=== PATIENT | male | born 1950 | race Caucasian/White ===

== ENCOUNTER 2016-06-16 00:14 | Emergency (ER) | payer MEDICARE, OTHER, MEDICAID ==
[~2016-06-16] VITALS: Ht 172.7 cm; Wt 113.6 kg
[~2016-06-16 00:14] MED LIST: ACET-171 PO; ATOR80TA77 PO; CARV12.52 PO; CHOL200047 PO; CITA40TA13 PO; FUR20 PO; INSU100I SUBQ; INSU100V7 SUBQ; LEVO200T6 PO; MOXI400T32 PO; ONDA4TAB9 PO; OXYC5CAP4 PO; PANT40TA2 PO; PANT40TA3 PO; PROC-4 PO; SEVE800T7 PO
[2016-06-16 00:19] VITALS: BP 100/66; PULSE 74; RESP 16; O2SAT 99
--- NOTE | 2016-06-16 00:33 | ED.REPORT ---
HPI-General Illness Date of Service Jun 16, 2016 ED Provider: Dr. Loaiza Nursing Notes Stated Complaint: BLOOD IN STOOL L FOOT PAIN Chief Complaint: General Complaint Nursing Notes Reviewed: Yes Allergies: Coded Allergies: No Known Allergies (Verified Allergy, Unknown, 06/16/16) Scheduled Atorvastatin Calcium (Atorvastatin Calcium) 80 Mg Tablet 80 MG PO HS Carvedilol (Carvedilol) 12.5 Mg Tablet 12.5 MG PO BID tAKE ON FRIDAY, FRIDAY, FRIDAY AND FRIDAY ONLY HOLD ON FRIDAY AND FRIDAY AND FRIDAY Cholecalciferol (Vitamin D3) (Vitamin D3) 2,000 Unit Capsule 2,000 UNIT PO AM Citalopram (Citalopram) 40 Mg Tablet 40 MG PO AM Furosemide (Furosemide) 20 Mg Tab 80 MG PO SuMoWeFr Hold on dialysis days Insulin Aspart (NovoLOG U-100 Pen) 100 Unit/Ml Insuln.pen 5 UNIT SUBQ TID- INSULIN Hold for blood glucose less than 150. Insulin Glargine (Lantus U100 Insulin Vial) 100 Unit/Ml Vial 20 UNIT SUBQ HS Levothyroxine (Levothyroxine) 200 Mcg Tablet 200 MCG PO AM Moxifloxacin (Moxifloxacin) 400 Mg Tablet 400 MG PO DAILY Pantoprazole DR (Pantoprazole DR) 40 Mg Tablet 40 MG PO BID Pantoprazole DR (Protonix) 40 Mg Tablet 40 MG PO BID Sevelamer Carbonate (Renvela) 800 Mg Tablet 800 MG PO NOON Scheduled PRN Acetaminophen (Acetaminophen) 500 Mg Tablet 1,000 MG PO Q6H PRN PRN For Pain Ondansetron ODT (Zofran ODT) 4 Mg Tablet 4 MG PO Q4H PRN PRN For Nausea Prochlorperazine Maleate (Compazine) 10 Mg Tablet 10 MG PO TIDAC PRN PRN For Nausea oxyCODONE (oxyCODONE) 5 Mg Capsule 5 MG PO Q6-8H PRN PRN For Pain TAKE WITH BREAKFAST AND DINNER General Time Seen by MD: 00:32 Past Medical History Past Medical History Notes: Admit for GI bleed July 2015 (sternal history of GI bleed in February 2015- from therapy stopped at that time) ED visit for headache 07/27/15 11 Head CTs since 2013 Past Medical History Chronic renal failure, on dialysis (T/R/S). Minimal urine output. [facility] h/o DVT and PE no longer on chronic Coumadin therapy following GI Bleed Sleep apnea on BiPAP. Diastolic dysfunction congestive heart failure Diabetes mellitus Hypertension Hyperlipidemia Depression Gout CVA Restless legs Peripheral neuropathy Headaches Hypothyroid Past Surgical History Partial colectomy, colostomy and subsequent takedown. Dialysis access catheter Colonoscopy December 2014 with polypectomy EGD July 2015 reveals ulcers in the esophagus and proximal duodenum with no active bleeding Family History Reviewed, not relevant. Smoking History Never Smoker Social History Alcohol Use: Denies alcohol use Drug Use: Denies drug use Other Social History: Good social support, , Local resident Ambulatory Status Wheelchair Review of Systems Complete sys rev & neg: except as marked. Physical Exam Vital Signs Vital Signs Date Time Temp Pulse Resp B/P Pulse Ox O2 Delivery O2 Flow Rate FiO2 06/16/16 00:19 36.3 74 16 100/66 99 Room Air Interpretation & Diagnostics Lab Results Interpretation Result Diagram: 06/16/16 0142 06/16/16 0142 Test 06/16/16 01:42 White Blood Count 8.6th/mm3 (3.8-10.1) Red Blood Count 3.38mil/mm3 (4.40-5.80) Hemoglobin 10.9g/dL (13.8-17.2) Hematocrit 33.0% (41.0-50.0) Mean Corpuscular Volume 97.6fL (81-100) Mean Corpuscular Hemoglobin 32.2pg (27.0-35.0) Mean Corpuscular Hemoglobin Concent 33.0% (32.0-37.0) Red Cell Distribution Width 15.0% (12.3-15.4) Platelet Count 178bil/L (150-400) Neutrophils (%) (Auto) 67.1% (40-74) Lymphocytes (%) (Auto) 17.7% (14-46) Monocytes (%) (Auto) 11.9% (4-12) Eosinophils (%) (Auto) 0.6% (0-5) Basophils (%) (Auto) 0.6% (0-3) Prothrombin Time 10.4sec (8.1-12.5) Prothromb Time International Ratio 0.97ratio Sodium Level 138mEq/L (134-144) Potassium Level 4.1mEq/L (3.5-5.2) Chloride Level 92mEq/L (97-108) Carbon Dioxide Level 26mmol/L (18-29) Blood Urea Nitrogen 43mg/dL (8-27) Creatinine 4.49mg/dL (0.76-1.27) Estimat Glomerular Filtration Rate 14mL/min (>59) Glucose Level 221mg/dL (60-99) Calcium Level 9.8mg/dL (8.5-10.1) Total Bilirubin 0.6mg/dL (0.0-1.2) Aspartate Amino Transf (AST/SGOT) 17U/L (0-50) Alanine Aminotransferase (ALT/SGPT) 16U/L (0-44) Alkaline Phosphatase 144U/L (25-160) Total Protein 7.3g/dL (6.4-8.4) Albumin 4.1g/dL (3.4-5.0) Hold [place] Top Tube Received (Received) Discharge & Departure Disposition: AGAINST MEDICAL ADVICE Referrals: [facility] (PCP) [facility] Mazin Hartmann DO Jun 16, 2016 00:33 SINAN HALL Jun 16, 2016 01:17
[2016-06-16 01:52] LABS: BASOPHILS % (AUTO) 0.6 % (0-3); EOSINOPHILS % (AUTO) 0.6 % (0-5); MONOCYTES % (AUTO) 11.9 % (4-12); Mean Corpuscular Hemoglobin 32.2 pg (27.0-35.0); Mean Corpuscular Volume 97.6 fL (81-100); NEUTROPHILS % (AUTO) 67.1 % (40-74); Platelet Count 178 bil/L (150-400)
[2016-06-16 02:14] LABS: INR 0.97 ratio
== END 2016-06-16 01:42 | disposition left against medical advice (07) ==
LOC: EDUNIT# 00:14 → SED 00:14 → EDBD 00:14 → SED 01:42
DX: K92.1 Melena (principal); Z53.29 Procedure and treatment not carried out because of patient's decision for other reasons

== ENCOUNTER 2016-06-21 01:26 | Emergency (ER) | payer MEDICARE, OTHER, MEDICAID ==
[2016-06-21 01:35] VITALS: BP 122/79; PULSE 65; RESP 22; O2SAT 98
[2016-06-21 02:34] LABS: BASOPHILS % (AUTO) 0.2 % (0-3); EOSINOPHILS % (AUTO) 1.4 % (0-5); Mean Corpuscular Hemoglobin 31.9 pg (27.0-35.0); Mean Corpuscular Volume 97.5 fL (81-100); NEUTROPHILS % (AUTO) 70.6 % (40-74); Platelet Count 217 bil/L (150-400)
--- NOTE | 2016-06-21 03:03 | ED.REPORT ---
HPI-General Illness Date of Service Jun 21, 2016 ED Provider: Mazin Loaiza DO This patient is a 65 year old male with a history of chronic renal failure on dialysis, diabetes, DVT, PE, CHF, hypertension, and GI bleed brought in by EMS with a cough. He also complains of chills, SOB, vomiting, and black, tarry stools. The pt states that SOB started today. He was in the ED recently for a possible GI bleed but did not follow up with his PCP as recommended. Nursing Notes Stated Complaint: COUGH, POSSIBLE GI BLEED Chief Complaint: General Complaint Nursing Notes Reviewed: Yes Allergies: Coded Allergies: No Known Allergies (Verified Allergy, Unknown, 06/21/16) Scheduled Atorvastatin Calcium (Atorvastatin Calcium) 80 Mg Tablet 80 MG PO HS Carvedilol (Carvedilol) 12.5 Mg Tablet 12.5 MG PO BID tAKE ON FRIDAY, FRIDAY, FRIDAY AND FRIDAY ONLY HOLD ON FRIDAY AND FRIDAY AND FRIDAY Cholecalciferol (Vitamin D3) (Vitamin D3) 2,000 Unit Capsule 2,000 UNIT PO AM Citalopram (Citalopram) 40 Mg Tablet 40 MG PO AM Furosemide (Furosemide) 20 Mg Tab 80 MG PO SuMoWeFr Hold on dialysis days Insulin Aspart (NovoLOG U-100 Pen) 100 Unit/Ml Insuln.pen 5 UNIT SUBQ TID- INSULIN Hold for blood glucose less than 150. Insulin Glargine (Lantus U100 Insulin Vial) 100 Unit/Ml Vial 20 UNIT SUBQ HS Levothyroxine (Levothyroxine) 200 Mcg Tablet 200 MCG PO AM Moxifloxacin (Moxifloxacin) 400 Mg Tablet 400 MG PO DAILY Pantoprazole DR (Pantoprazole DR) 40 Mg Tablet 40 MG PO BID Pantoprazole DR (Protonix) 40 Mg Tablet 40 MG PO BID Sevelamer Carbonate (Renvela) 800 Mg Tablet 800 MG PO NOON Scheduled PRN Acetaminophen (Acetaminophen) 500 Mg Tablet 1,000 MG PO Q6H PRN PRN For Pain Ondansetron ODT (Zofran ODT) 4 Mg Tablet 4 MG PO Q4H PRN PRN For Nausea Prochlorperazine Maleate (Compazine) 10 Mg Tablet 10 MG PO TIDAC PRN PRN For Nausea oxyCODONE (oxyCODONE) 5 Mg Capsule 5 MG PO Q6-8H PRN PRN For Pain TAKE WITH BREAKFAST AND DINNER General Time Seen by MD: 01:40 Chief Complaint Cough Hx Obtained From: Patient, EMS Arrived By: Ambulance Sudden in Onset?: No Onset Occurred: 1 day ago Symptom Duration: Since onset Recent Healthcare: Recent doctor visit, Recent hospitalization Similar Sx Previous: Yes Past Medical History Past Medical History Notes: Admit for GI bleed July 2015 (sternal history of GI bleed in February 2015- from therapy stopped at that time) ED visit for headache 07/27/15 11 Head CTs since 2013 Past Medical History Chronic renal failure, on dialysis (T/R/S). Minimal urine output. [facility] h/o DVT and PE no longer on chronic Coumadin therapy following GI Bleed Sleep apnea on BiPAP. Diastolic dysfunction congestive heart failure Diabetes mellitus Hypertension Hyperlipidemia Depression Gout CVA Restless legs Peripheral neuropathy Headaches Hypothyroid Past Surgical History Partial colectomy, colostomy and subsequent takedown. Dialysis access catheter Colonoscopy December 2014 with polypectomy EGD July 2015 reveals ulcers in the esophagus and proximal duodenum with no active bleeding Family History Reviewed, not relevant. Smoking History Never Smoker Social History Alcohol Use: Denies alcohol use Drug Use: Denies drug use Other Social History: Good social support, , Local resident Ambulatory Status Wheelchair Review of Systems Full Review of Systems Constitutional: Reports: Chills Respiratory: Reports: Non-productive cough, Shortness of breath Cardiovascular: Denies: Chest pain GI: Reports: Bloody/tarry stool, Vomiting Musculoskeletal: Denies: Back pain, Neck pain Skin: Denies Rash Complete sys rev & neg: except as marked. Physical Exam Vital Signs Vital Signs Date Time Temp Pulse Resp B/P Pulse Ox O2 Delivery O2 Flow Rate FiO2 06/21/16 01:35 36.2 65 22 122/79 98 Room Air Initial VS: Reviewed General/Constitutional: Well-developed, Well-nourished Head / Eyes: Atraumatic, Normocephalic, PERRL ENT: Mucous membranes moist, Conjunctiva normal, No scleral icterus Neck: Supple, Non-tender, Full range of motion Cardiovascular: Regular rate & rhythm, Heart sounds normal, Intact distal pulses Abdomen / GI: Soft, Non-tender, No guarding, No rebound, No distention Extremities: Vascular intact, Neuro intact Skin: Warm, Dry, No cyanosis Neurologic: Alert, Oriented, Nonfocal Psychiatric: Mood/affect normal, Behavior normal, Normal thought content General/Constitutional: Awake, Alert Respiratory / Chest: Atraumatic, Breath sounds NL Coarse rhonchi in bilateral lung hernandez Bilateral wheeze Interpretation & Diagnostics Lab Results Interpretation Result Diagram: 06/21/16 0159 Test 06/21/16 01:59 06/21/16 03:00 White Blood Count 9.2th/mm3 (3.8-10.1) Red Blood Count 3.23mil/mm3 (4.40-5.80) Hemoglobin 10.3g/dL (13.8-17.2) Hematocrit 31.5% (41.0-50.0) Mean Corpuscular Volume 97.5fL (81-100) Mean Corpuscular Hemoglobin 31.9pg (27.0-35.0) Mean Corpuscular Hemoglobin Concent 32.7% (32.0-37.0) Red Cell Distribution Width 15.3% (12.3-15.4) Platelet Count 217bil/L (150-400) Neutrophils (%) (Auto) 70.6% (40-74) Lymphocytes (%) (Auto) 14.2% (14-46) Monocytes (%) (Auto) 12.0% (4-12) Eosinophils (%) (Auto) 1.4% (0-5) Basophils (%) (Auto) 0.2% (0-3) Prothrombin Time 10.6sec (8.1-12.5) Prothromb Time International Ratio 0.99ratio Lactic Acid Level 2.6mmol/L (0.4-2.0) Pro-B-Type Natriuretic Peptide 1846pg/mL (0-210) Pulse Oximetry Interpretation Pulse Oximetry Interpretation: 98% on room air Pulse Oximetry: Pulse Ox normal ECG Interpretation ECG Interpretation: normal sinus rhythm with a rate of 64 RBBB Interpreted by: ED physician X-Ray Chest Interpretation Chest Xray Interpretation: no acute findings Interpretation / Wet Read by: Wet read ED physician Re-Eval/Medical Decision Med Decision/Clinical Course 65-year-old end-stage renal disease patient presents with cough, shortness of breath and posttussive emesis. Evidently he had black tarry stools or couple days ago. He came to the MRSA department but did not stick around to be seen. Today he started to cough. He has had some vomiting however has not brought up any blood. His stool is no longer black. He does feel moderately short of breath. He does not have any, this is. He does have a fever subjectively. On examination vital signs initially mild tachypnea. He is not hypoxic. He has coarse rhonchi and wheezes in both lung hernandez. No JVD. Belly is soft and nontender. Limbs without edema. Neurologic no focal deficits. He has a strong AV fistula in the right arm. When IV access was obtained. Mr. Harrell has been ordered double DuoNeb nebs. Portable chest x-ray looks normal to me. KG does not show any evidence of ischemia. Laboratory work is pending at this time. Care endorsed to Dr. Gimenez at the end of my shift. Source of Hx: Old records, EMS Counseled Regarding: Diagnosis, Lab results Discharge & Departure Shift Change Sign-Out Patient Care Transferred: Yes Discussed Complaint(s): Yes Laboratory Evaluation: Ordered, not yet done Imaging Studies: Imaging discussed Response to Therapy: Improved Primary Impression: Bronchospasm Additional Impression: Vomiting Vomiting type: unspecified Vomiting Intractability: non-intractable Nausea presence: with nausea Qualified Code: R11.2 - Nausea with vomiting, unspecified Discharge Condition All VS Reviewed: Yes Condition: Stable Referrals: [facility] (PCP) Care Transferred to: Dr. Gimenez Care Transferred at: 03:00 Scribe Attestation Portions of this note were transcribed by Audrey Schumacher I, Dr. Loaiza personally performed the history, physical exam and medical decision-making ; I reviewed and confirmed the accuracy of the information in the transcribed note. Signed by: Priscilla Ho, 06/21/2016 and 0322. copies to: [facility] Mazin Loaiza DO Jun 21, 2016 03:03 Anna Tan [Audrey] Jun 21, 2016 03:10 ANGELINE SCHUMACHER Jun 21, 2016 03:23
[2016-06-21] MEDS ORDERED: Albuterol-Ipratropium 3 mL Inhalation Solution NEB ONE ×2 (03:10→03:20)
[2016-06-21] MEDS ORDERED: Ondansetron 2 mg/mL 2 mL Inj IVPUSH PRN (03:10)
[2016-06-21] MEDS ORDERED: MethylprednisoLONE Sodium Succinate 62.5 mg/mL 2 mL Inj IVPUSH ONE (03:20)
[2016-06-21 03:36] LABS: INR 0.99 ratio
[2016-06-21 03:49] LABS: TROPONIN T 0.04 ug/L (0.0-0.011)
[2016-06-21 04:28] VITALS: BP 146/72; PULSE 65; RESP 15; O2SAT 96
[2016-06-21 06:28] VITALS: BP 142/76; PULSE 62; RESP 17; O2SAT 98
[2016-06-21 07:43] VITALS: BP 125/67; PULSE 65; RESP 12; O2SAT 97
[2016-06-21 07:44] VITALS: BP 125/67; PULSE 65; RESP 12; O2SAT 97
--- NOTE | 2016-06-21 08:41 | DRSVH ---
PROCEDURE: CT ANGIO CHEST PULMONARY EMBOLISM ([id number]) INDICATIONS: sob, cp, elevated d dimer TECHNIQUE: After the administration of intravenous contrast, 2 mm thick sections acquired from the pulmonary api payton to the posterior costophrenic angles. 3-dimensional maximum intensity projection (MIP) coronal a nd sagittal reformats were then acquired through the thorax. For radiation dose reduction, the follo wing was used: automated exposure control, adjustment of mA and/or kV according to patient size. COMPARISON: [facility], CT, CHEST ANGIO-PE, 03/21/2014, 14:37. FINDINGS: Image quality: Excellent. Pulmonary arteries: Pulmonary arteries are normal in size, and demonstrate no intraluminal filling d efects to suggest central pulmonary embolism. Lungs and pleura: Lungs are clear. No pleural effusions or pneumothorax. Central and peripheral ai rways are patent. Mediastinum: Heart size is normal, without pericardial effusion. No mediastinal or hilar adenopathy . Thoracic aorta is normal in caliber and enhancement. Esophagus is normal in caliber. There is a s mall hiatal hernia. The distal esophagus is fluid-filled. Bones and chest wall: No suspicious bony lesions. Ribs and thoracic spine appear intact throughout. Thyroid gland is unremarkable. No axillary or supraclavicular adenopathy. Abdomen: Visualized upper abdominal solid organs appear normal in the early arterial phase of enhanc ement. IMPRESSION: 1. No acute pulmonary embolus. 2. Small hiatal hernia and fluid-filled esophagus. Note: The preliminary [facility] interpretation and the final report are concordant. Dictated by: Sona Villanueva M.D. on 06/21/2016 at 8:39 Approved by: Sona Villanueva M.D. on 06/21/2016 at 8:39
--- NOTE | 2016-06-21 08:42 | DRSVH ---
PROCEDURE: X-RAY CHEST ONE VIEW, PORTABLE ([id number]) INDICATIONS: COUGH TECHNIQUE: One view of the chest was acquired. COMPARISON: [facility], CR, XR CHEST 1VW (PORTABLE), 06/05/2016, 1:17. FINDINGS: Surgical changes and devices: None. Lungs and pleura: No pleural effusions or pneumothorax. There is hyperinflation of the lungs with f lattening of the hemidiaphragms suggestive of COPD. Lungs are clear. Mediastinum: Mediastinal contours appear normal. Heart size is normal. Bones and chest wall: No suspicious bony lesions. Overlying soft tissues appear unremarkable. IMPRESSION: 1. No evidence of pneumonia. 2. Findings suggestive of COPD redemonstrated. Dictated by: Marcelino Vance M.D. on 06/21/2016 at 8:40 Approved by: Marcelino Vance M.D. on 06/21/2016 at 8:40
[2016-06-22] MEDS ORDERED: MELA1TAB9 PO (02:16)
[2016-06-22] MEDS ORDERED: CHOL10008 PO (02:18)
[2016-06-22] MEDS ORDERED: Pantoprazole 4 mg/mL 10 mL Inj IVPUSH SCH (04:20)
== END 2016-06-21 07:30 | disposition home or self-care (01) ==
LOC: EDUNIT# 01:26 → SED 01:26 → EDBD 01:26 → SED 07:30
DX: J98.01 Acute bronchospasm (principal); R11.2 Nausea with vomiting, unspecified; I12.0 Hypertensive chronic kidney disease with stage 5 chronic kidney disease or end stage renal disease; N18.9 Chronic kidney disease, unspecified; E11.22 Type 2 diabetes mellitus with diabetic chronic kidney disease; I50.9 Heart failure, unspecified; Z86.718 Personal history of other venous thrombosis and embolism; Z86.73 Personal history of transient ischemic attack (TIA), and cerebral infarction without residual deficits; Z86.39 Personal history of other endocrine, nutritional and metabolic disease; Z99.2 Dependence on renal dialysis; Z87.39 Personal history of other diseases of the musculoskeletal system and connective tissue; Z86.79 Personal history of other diseases of the circulatory system; Z79.4 Long term (current) use of insulin
CPT/HCPCS: 36415; 71010; 71275; 80053; 83605; 83880; 84484; 85025; 85379; 85610; 87040; 87070; 87205; 87804; 93005; 94799; 96374; 96375; 99285; J2405; J2930; J7620; Q9967

== ENCOUNTER 2016-06-21 15:41 | Emergency (ER) | payer MEDICARE, OTHER, MEDICAID ==
[~2016-06-21] VITALS: Ht 172.7 cm; Wt 113.6 kg
[2016-06-21 15:52] VITALS: BP 111/69; PULSE 75; RESP 16; O2SAT 95
[2016-06-22] MEDS ORDERED: MELA1TAB9 PO (02:16)
[2016-06-22] MEDS ORDERED: CHOL10008 PO (02:18)
== END 2016-06-21 17:50 | disposition left against medical advice (07) ==
LOC: SED 15:41
DX: K92.0 Hematemesis (principal); R42 Dizziness and giddiness; Z53.21 Procedure and treatment not carried out due to patient leaving prior to being seen by health care provider

== ENCOUNTER 2016-06-22 00:45 | Inpatient (IN) | payer MEDICARE, OTHER, MEDICAID ==
[~2016-06-22] VITALS: Ht 175.3 cm; Wt 112.8 kg
[2016-06-22] VITALS (8 sets, daily range): BP systolic 102–129; BP diastolic 53–72; PULSE 68–78; RESP 16–22; O2SAT 95–98
[2016-06-22] MEDS ORDERED: MELA1TAB9 PO (02:16)
[2016-06-22] MEDS ORDERED: CHOL10008 PO (02:18)
[2016-06-22] MEDS ORDERED: Alum-Mag Hydrox-Simeth 30 mL Suspension PO PRN (03:35)
[2016-06-22] MEDS ORDERED: Polyethylene Glycol (PEG) 17 Gm Powder PO PRN (03:35)
[2016-06-22] MEDS ORDERED: Ondansetron 2 mg/mL 2 mL Inj IVPUSH PRN (03:35)
[2016-06-22] MEDS: 0.9% Sodium Chloride 1,000 ML IV SCH ×3 (04:04→23:32)
[2016-06-22] MEDS: 0.9% Sodium Chloride 1,000 ML IV ONE ×2 (04:25→04:50)
[2016-06-22] MEDS ORDERED: SODIUM CHLORIDE 0.9% IV ONE (04:40)
[2016-06-22] MEDS ORDERED: POTASSIUM CHLORIDE IV ONE (04:40)
[2016-06-22] MEDS ORDERED: Glucose 40% Oral Gel 15 Gm Tube PO PRN (04:40)
[2016-06-22] MEDS ORDERED: Insulin GLARgine 100 Unit/mL Syringe SUBQ ONE (04:40)
--- NOTE | 2016-06-22 04:40 | PCM.HPMED ---
Subjective Date of Service Jun 22, 2016 Primary Provider: Admitting Physician: Margaret Cavazos MD [facility]ending Phys[facility]: Margaret Cavazos MD Chief Complaint: GI bleed History of Present Illness: 65-year-old male past medical history of DVT/PE no longer on anticoagulation due to GI bleeding 2014, diabetes type II, CHF, end-stage renal disease on hemodialysis, hypertension, and history of strokes 4, presenting today ED at [facility] with nausea and vomiting 2 days coffee-ground stool, hematemesis, that started at the same time the nausea and vomiting. Patient was brought to the emergency department here at [facility] yesterday due to cough and shortness of breath with vomiting of black tarry stools. The shortness of breath that started yesterday and he underwent evaluation for PE which was ruled out and the patient was sent home. Patient denies fever, abdominal or chest pain, diarrhea, but does endorse chills and lightheadedness. Patient has also been unable to eat or drink due to severe nausea. Patient had GI bleed in 2014, at which time his anticoagulation for his PE/DVT was discontinued. He was admitted to the hospital. S/P H in early 2015. At that time the patient had gastritis diagnosed by EGD. Patient is a poor historian and history is taken from the records from [facility], and from the ER records yesterday. At [facility] basics labs showed a hypokalemia of 3.3, hypochloremia of 91, increased anion gap 19, glucose 317, BUN/creatinine 58, creatinine of 6.79, EGF R8. Patient also had a mild elevation of his AST with a normal ALP and a normal alkaline phosphatase. Patient did have a white count of 14.5 hemoglobin of 9.9 which was down from 10.3 yesterday morning when he visited [facility]. Hematocrit is 29.3. There is a left shift on the CBC with neutrophils of 84.6 and lymphocytes of 6% Review of Systems: Complete review of systems performed, pertinent positives and negatives per history of present illness. All others systems were reviewed and found to be negative Allergies Coded Allergies: No Known Allergies (Verified Allergy, Unknown, 06/21/16) Home Medications Atorvastatin Calcium (Atorvastatin Calcium) 80 Mg Tablet 80 MG PO HS Carvedilol (Carvedilol) 12.5 Mg Tablet 12.5 MG PO BID tAKE ON FRIDAY, FRIDAY, FRIDAY AND FRIDAY ONLY HOLD ON FRIDAY AND FRIDAY AND FRIDAY Cholecalciferol (Vitamin D3) (Vitamin D3) 2,000 Unit Capsule 2,000 UNIT PO AM Citalopram (Citalopram) 40 Mg Tablet 40 MG PO AM Furosemide (Furosemide) 20 Mg Tab 80 MG PO SuMoWeFr Hold on dialysis days Insulin Aspart (NovoLOG U-100 Pen) 100 Unit/Ml Insuln.pen 5 UNIT SUBQ TID- INSULIN Hold for blood glucose less than 150. Insulin Glargine (Lantus U100 Insulin Vial) 100 Unit/Ml Vial 20 UNIT SUBQ HS Levothyroxine (Levothyroxine) 200 Mcg Tablet 200 MCG PO AM Moxifloxacin (Moxifloxacin) 400 Mg Tablet 400 MG PO DAILY Pantoprazole DR (Pantoprazole DR) 40 Mg Tablet 40 MG PO BID Pantoprazole DR (Protonix) 40 Mg Tablet 40 MG PO BID Sevelamer Carbonate (Renvela) 800 Mg Tablet 800 MG PO NOON Acetaminophen (Acetaminophen) 500 Mg Tablet 1,000 MG PO Q6H PRN PRN For Pain Ondansetron ODT (Zofran ODT) 4 Mg Tablet 4 MG PO Q4H PRN PRN For Nausea Prochlorperazine Maleate (Compazine) 10 Mg Tablet 10 MG PO TIDAC PRN PRN For Nausea oxyCODONE (oxyCODONE) 5 Mg Capsule 5 MG PO Q6-8H PRN PRN For Pain TAKE WITH BREAKFAST AND DINNER PMH Chronic renal failure, on dialysis (T/R/S). Minimal urine output. [facility] h/o DVT and PE no longer on chronic Coumadin therapy following GI Bleed Sleep apnea on BiPAP. Diastolic dysfunction congestive heart failure Diabetes mellitus Hypertension Hyperlipidemia Depression Gout CVA Restless legs Peripheral neuropathy Headaches Hypothyroid Admit for GI bleed July 2015 (sternal history of GI bleed in February 2015- from therapy stopped at that time) ED visit for headache 07/27/15 11 Head CTs since 2013 Surgical History Partial colectomy, colostomy and subsequent takedown. Dialysis access catheter Colonoscopy December 2014 with polypectomy EGD July 2015 reveals ulcers in the esophagus and proximal duodenum with no active bleeding Family History Patient is unable to remember any family history. Review of prior ED visits are negative for any collected family history Social History Hx Alcohol Use: No Hx Substance Use: No Hx Tobacco Use: No Smoking Status: Never Smoker Living Arrangement: with Family Exam Vital Signs Vital Sign - Last Date Time Temp Pulse Resp B/P Pulse Ox O2 Delivery O2 Flow Rate FiO2 06/22/16 02:32 37.1 73 22 129/70 95 Room Air Exam Gen.: Patient is alert and oriented. Responsive and conversive. Cognition is slow. HEENT: PERRLA, EOMI, membranes are moist, no residual blood in mouth or pharynx Cardio: Regular rate and rhythm, loud 3/6 systolic murmur is heard best at the right second intercostal space with radiation to the right base of the neck Respiratory: CTA bilaterally with inspiratory and expiratory wheezes in the bases, Dialysis catheter in the right chest. Abdomen: Positive bowel sounds in all 4 quadrants no abdominal pain noted, nontender, nondistended, no hepatomegaly Extremities: Significant edema in the lower extremities versus lymphedema; moving all 4 extremities; machine cloth examiner strength is reduced Neuro: Cranial nerves II through XII intact sensation intact throughout Psych: Patient's cognition is decreased likely due to his for strokes; he is conversive; appropriate mood and affect Lab and Diagnostics Labs Labs are in chart from [facility]. Labs were reordered for morning labs X-Rays, CTs and MRIs CT Angiography IMPRESSION: 1. No acute pulmonary embolus. 2. Small hiatal hernia and fluid-filled esophagus. Note: The preliminary [facility] interpretation and the final report are concordant. Dictated by: Sona Villanueva M.D. on 06/21/2016 at 8:39 Chest X-ray IMPRESSION: 1. No evidence of pneumonia. 2. Findings suggestive of COPD redemonstrated. Dictated by: Marcelino Vance M.D. on 06/21/2016 at 8:40 Assessment & Plan 65-year-old male past medical history of DVT/PE no longer on anticoagulation due to GI bleeding 2014, diabetes type II, CHF, end-stage renal disease on hemodialysis, hypertension, and history of strokes 4, presenting today ED at [facility] with nausea and vomiting 2 days coffee-ground stool, hematemesis, that started at the same time the nausea and vomiting. #1 acute blood loss due to upper GI bleed; present on admission; ongoing Patient presents with only a mild decrease in his hematocrit but complains of ongoing hematemesis and melena Patient had previous GI bleed while on anticoagulation at the end of 2014 in and to 2016 with EGD only showing gastritis We will trend H&H GI consult in a.m. as patient is stable Protonix 40 mg IV every 12 We will avoid Maalox as this patient also has chronic kidney disease on hemodialysis Patient will be started on 100 mL per hour of normal saline Patient on ondansetron for nausea #2 chronic kidney disease requiring dialysis; present on admission; ongoing Patient cannot remember when the last time he was dialyzed, he is noted to not be the best historian Consult nephrology in the a.m. to set up hemodialysis Patient is hypokalemic, and this can presumably be dealt with during hemodialysis; will trend #3 uncontrolled diabetes mellitus; present on admission; ongoing Patient is unable to confirm that he has diabetes. Unable to reach at this time. Patient presented with a blood glucose over 300 Order A1c We will start patient on 20 units of Lantus and a medium correction scale #4 Acute leukocytosis; present admission; ongoing Patient reports chills but no fever, also a general sense of malaise, and lethargy; on return to the hospital this morning patient has an elevated white count of 14.5 Patient had blood cultures drawn before leaving the ED yesterday morning; we await those results We will hold off on antibiotics at this time as the leukocytosis may be due to acute dehydration from vomiting; currently no fever Will give 1 L of normal saline open and then maintenance fluid as noted above #5 chronic hypothyroidism; present on admission; stable Continue home levothyroxine #6 chronic hyperlipidemia; present on admission; stable Continue home atorvastatin #7 hypertension, chronic; present admission; stable Continue on home carvedilol 12.5 mg Disposition: Patient is being admitted to a general medical floor under inpatient status with expected length of stay greater than 2 midnights due to severity of illness, treatment duration, and risk of adverse events Pain Evaluation: Adequate Pain Control Resuscitation Status: CPR: Attempt Resuscitation Attending Statement I saw Mr. Harrell on 06/22/14 and discussed him with Dr. Holguin. My exam, assessment and plans are as detailed above. Alex Buchanan MD, DO Jun 22, 2016 04:18 Margaret Cavazos MD Jun 22, 2016 05:00
--- NOTE | 2016-06-22 05:27 | NUR ---
ADMIT NOTE Pt arrived via BLS from [facility] [place] [facility] appro[place] 0210. Pt alert, generally oriented to situation. Pt placed on remote telemetry. Pt has memory and comprehension difficulties per pts . Pts , Queta, called RN from home to assist with admission questions. Med rec reviewed and updated w/ pts assistance. Admitting MD notified that med rec has been updated. Pt has sleep apnea, does not use home CPAP. Pt placed on CPOx, later placed on 2L nasal cannula d/t sustained oxygen desaturations on RA. No c/o pain. Continue to monitor. Pt is a dialysis pt, Right arm fistula. RN called dialysis center, spoke w/ staff member, notified that pt is in 3006. Pts dialysis days TThSat. Call light in reach. Bed alarm on. Intentional rounding.
[2016-06-22] MEDS: Pantoprazole 4 mg/mL 10 mL Inj IVPUSH SCH ×2 (08:01→16:30)
[2016-06-22] MEDS: Insulin LISPRO 300 Unit/3 mL Inj SUBQ SCH ×7 (08:04→20:55)
[2016-06-22 09:46] LABS: BASOPHILS % (AUTO) 0.3 % (0-3); EOSINOPHILS % (AUTO) 0.9 % (0-5); MONOCYTES % (AUTO) 9.9 % (4-12); Mean Corpuscular Volume 97.5 fL (81-100); NEUTROPHILS % (AUTO) 80.3 % (40-74); Platelet Count 180 bil/L (150-400)
[2016-06-22 10:02] LABS: INR 0.98 ratio
[2016-06-22 10:09] LABS: Magnesium 1.6 mg/dL (1.6-2.6)
--- NOTE | 2016-06-22 14:09 | NUR ---
Social Work-initial assessment: Data:See initial assessment. pt is a 65 y/o male who was admitted on 06/22/16 for upper GI Bleed per H&P. Pt's insurance is [facility], [employer] and [facility] and PCP is [facility]. EMR Reviewed. KIZZY placed a call to pt's Queta [phone] to discuss discharge planning, SW role explained. Pt is currently at Dialysis. Pt resides at home with his in an apartment with elevator access. Pt uses a w/c at baseline and is typically able to self transfer. Pt does not drive and uses either powerchair, w/c or fww at baseline. Pt has had HH in the past and has been to SNF. 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 Pt has caregiver that comes out to assist him and his GRICELDA CM is Elma Payton, updated clinicals faxed. SW discussed DPOA/ advanced directive, states that they have completed this, SW encouraged her to bring a copy into the hospital. wonders if pt may need SNF at discharge. SW explained that pt would have to have skillable need for SNF and that PT would need to see pt. feels like pt is weaker than normal. SW explained that SW can follow for needs. Pt's to provide transport home at discharge. SW will continue to follow. Assessment:Pt who has GRICELDA caregiving at home. Plan:Pt to discharge home with and GRICELDA caregivers via POV. R/O HH vs SNF. SW will continue to follow. DAVID White Addendum: 06/22/16 at 1415 by RITA TOLEDO Amended: Links added.
--- NOTE | 2016-06-22 15:30 | CONS ---
[address] [address] CONSULTATION REPORT PATIENT: HEATHER DE LA FUENTE : 1950 MR#: [id number] ADMIT: 06/22/2016 JOB ID: [id number] DATE OF SERVICE: 06/22/2016 NEPHROLOGY CONSULTATION: REQUESTING PHYSICIAN: Dr. Juan Ramon Cavazos REASON FOR CONSULTATION: Management of end-stage renal disease. HISTORY OF PRESENT ILLNESS: This is a 65-year-old gentleman with significant past medical history of end-stage renal disease, on hemodialysis every Friday, , Friday, hypertension, dyslipidemia, CVA, history of DVT and PE, history of GI bleed presented to the hospital due to nausea and vomiting. Apparently the patient was in the emergency department yesterday with a complaint of shortness of breath and black tarry stool. The patient had a CT PE protocol which showed no acute pulmonary embolism. The patient later on was discharged home. Later on, he showed up in the emergency department at [facility] with a complaint of nausea, vomiting with black tarry stool. Initial blood work showed a potassium of 3.3, hemoglobin of 9.9. He then transferred to our facility for further management. Renal was consulted to continue dialysis while patient is in the hospital. During my visit today, he was not able to provide me a clear history why he is here. He mentioned that he had some breathing problem with productive cough and unable to bring up any phlegm. He feels congested. The patient is now treating for acute blood loss and GI bleed. Protonix IV injection was initiated. He has no chest pain, no fever, no chills at this moment. His primary staff toxicologist is Dr. Jimenez. He goes to [facility] for hemodialysis every Friday, , Friday. PAST MEDICAL HISTORY: 1. End-stage renal disease, on hemodialysis every Friday, , Friday. 2. History of PE and DVT. Not on anticoagulant given history of GI bleed. 3. Gastritis. 4. Sleep apnea. 5. Type 2 diabetes with renal manifestation. 6. Hypertension. 7. Dyslipidemia. 8. Hypothyroid. 9. CVA. 10. Gout. PAST SURGICAL HISTORY: 1. Status post AV fistula creation status post partial colectomy and colostomy. 2. Colonoscopy with polypectomy. FAMILY HISTORY: Noncontributory. SOCIAL HISTORY: Denies current use of alcohol, tobacco, illicit drugs. ALLERGIES: No known drug allergies. MEDICATIONS: Reviewed. PHYSICAL EXAMINATION: Vitals: Temperature 36.9, pulse 68, respiratory rate 18, blood pressure 102/66, O2 sat 96% on nasal cannula. General appearance: Awake, alert, oriented x3. No acute distress. HEENT: Mild pallor. No jaundice. No JVD. No lymphadenopathy. No thyroid enlargement. Heart: Regular rhythm. Normal S1, S2. No murmurs, rubs or gallops. Lungs: Coarse crackles noted. Expiratory wheezing noted. No accessory muscle use. Abdomen: Soft, obese, active bowel sounds. No hepatosplenomegaly. Extremities: No edema, cyanosis or clubbing of fingers. CT angio with PE protocol showed no acute PE, lungs are clear. No pleural effusion. Positive for small hiatal hernia and fluid filled esophagus. LABORATORY: WBC 14.5, hemoglobin 9.0, platelets 180. Sodium 134, potassium 3.8, chloride 87, bicarbonate 25, BUN 60, creatinine 7.16. Glucose 252. ProBNP 1846. Troponin 0.040. ASSESSMENT: 1. End-stage renal disease, on hemodialysis every Friday, , Friday. 2. History of gastrointestinal bleed. At this time presented with black tarry stool. Gastroenterology has been consulted. 3. Type 2 diabetes with renal manifestation. 4. Hypertension with hypertensive nephrosclerosis. 5. Productive cough with leukocytosis. 6. Dyslipidemia. 7. Hypothyroid. 8. History of cerebrovascular accident. 1. Per renal standpoint, will resume his routine hemodialysis. Will put him on four hours with 3 potassium bath today. He will be continued on IV Protonix. 2. Pending for gastrointestinal recommendations. Thank you for the consultation. We will monitor along with you.
--- NOTE | 2016-06-22 15:53 | CONS ---
[address] [address] CONSULTATION REPORT PATIENT: HEATHER DE LA FUENTE : 1950 MR#: [id number] ADMIT: 06/22/2016 JOB ID: [id number] DATE OF SERVICE: 06/22/2016 REASON FOR CONSULTATION: Hematemesis and melena. HISTORY OF PRESENT ILLNESS: The patient is a 65-year-old gentleman with a history of end-stage renal disease on hemodialysis, history of DVT and PE who is not on anticoagulation, CHF, hypertension, and history of multiple CVAs, who presented to [facility] yesterday with nausea and vomiting for the last two days. The patient is a poor historian. He states that he has had multiple strokes and is unable to remember as well as express himself. Therefore, I called his , Queta, and spoke with her. She stated that for the last several days he has been having what she describes as black stools along with vomiting up coffee ground like material. She reports that this has been going on for several months but over the last two days he has had an acute worsening of his nausea and vomiting. She reports that he has had melena going on for several months. Review of records indicates that back in July of 2015 he did undergo an endoscopy which revealed multiple ulcers in the pre-pyloric and duodenum. These ulcers were clean based. He has not had a repeat endoscopy since then to document ulcer healing. Upon my interview with him the patient has no abdominal complaints. He is currently on hemodialysis and he is watching TV without any complaints and states he is not having any nausea right now or vomiting. He has not had a bowel movement since admission. His hemoglobin on admission was nine with a hematocrit of 27.4. Yesterday he was seen in the emergency room and at that time had a hemoglobin of 10.3. Prior to that we have a hemoglobin from June 16 which was 10.9, and prior to that he had a hemoglobin on June 05, 2016, which was 11.9. Over the last six months his hemoglobin has ranged from 9.7 to 12.9. I do not see that he has had any blood transfusions over the last six months. PAST MEDICAL HISTORY: Significant for chronic renal failure on hemodialysis, diastolic dysfunction, congestive heart failure, diabetes mellitus, hypertension, hyperlipidemia, depression, gout, multiple CVAs, restless legs, peripheral neuropathy, headaches, hypothyroidism. PAST SURGICAL HISTORY: Includes partial colectomy with colostomy and subsequent takedown, and dialysis catheter placement. He had a colonoscopy December 2014 with polypectomy and an EGD July 2015 which revealed ulcers in the distal antrum and duodenum. HOME MEDICATIONS: Include atorvastatin, carvedilol, cholecalciferol, citalopram, furosemide, NovoLog insulin, Lantus insulin, levothyroxine, moxifloxacin, pantoprazole, sevelamer carbonate, acetaminophen, ondansetron, Compazine, and oxycodone. I specifically asked if the patient was taking NSAIDs either over the counter or prescription and his had stated no. ALLERGIES: He has no known drug allergies. REVIEW OF SYSTEMS: Other than that mentioned in the HPI, the patient has no complaints. PHYSICAL EXAMINATION: His temperature was 36.9, his pulse was 68, his blood pressure is 102/66, respiratory rate of 16, O2 saturation 96% on 2 L nasal cannula. Generally, he is an obese man, who is oriented to person, place, and time, answers some questions appropriately. HEENT: No pallor. No icterus. Oropharynx is clear. Chest: Clear to auscultation bilaterally. Cardiovascular: S1, S2 heard. Abdomen: Obese, soft. Nontender, nondistended. Without appreciable hepatosplenomegaly. Extremities: He does have edema present. LABORATORY DATA: Shows a white blood cell count of 14.5, hemoglobin of 9, hematocrit 27.4, platelet count of 180. Neutrophil percentage is 80.3. His MCV is 97.5. PT is 10.5. INR is 0.98. Sodium is 134, potassium 3.8, chloride of 87, CO2 of 25, BUN of 60, creatinine of 7.16, glucose is 252, calcium is 8, magnesium 1.6. Albumin is 0.8, AST is 34, ALT is 12, alkaline phosphatase is 97, total protein is 6.3, and albumin is 3.7. He has not had any abdominal imaging. Chest x-ray done yesterday shows no evidence of pneumonia and no findings suggestive of COPD demonstrated. ASSESSMENT AND PLAN: A 65-year-old gentleman with a history of peptic ulcer disease presenting with reported melena and coffee-ground emesis. Recommend keeping the patient n.p.o., starting a PPI drip, following H and H, and transfusing blood products as needed. Will schedule for endoscopy. I explained the risks and benefits of the procedure with the patient's , Queta, who gave her verbal consent over the phone. This was documented by the patient's nurse. Thank you for allowing me to participate in the patients care. If you has any further questions, please not hesitate to contact me.
--- NOTE | 2016-06-22 17:26 | NUR ---
Dialysis note 3 hrs. 15 mins of HD completed. Pt experiencing abd cramping towards end of tx and ended early, relief with blood return. See DTR for complete vitals. Pt rested comfortably thru tx. Sureseals/clamps X10 mins post tx. Report given and pt returned to floor stable.
[2016-06-22] MEDS: Pantoprazole Inj 80 MG in 0.9% Sodium Chloride 80 ML IV SCH (17:57)
[2016-06-22] MEDS: Insulin GLARgine 100 Unit/mL Syringe SUBQ SCH (20:54)
--- NOTE | 2016-06-22 22:12 | PCM.PNMED ---
Subjective Date of Service Jun 22, 2016 Subjective Patient was seen after hemodialysis today and he is much more comfortable and has no new complaints. Exam Vital Signs Vital Sign - Last Date Time Temp Pulse Resp B/P Pulse Ox O2 Delivery O2 Flow Rate FiO2 06/22/16 20:57 Supplement Oxygen 06/22/16 20:48 36.8 74 22 104/53 98 2.00 Intake and Output 06/21/16 06/21/16 06/22/16 Cumulative From/Thru 15:00 23:00 07:00 06/22/16 02:32 - 06/22/16 05:24 Intake Total 148 ml 148 ml Balance 148 ml 148 ml IV Total 148 ml 148 ml Exam General: Patient is in no apparent distress, he was seen after hemodialysis. HEENT: Head is atraumatic normocephalic with normal male pattern baldness. Eyes : Pupils are equally round and reactive to light and accommodation. Extraocular muscles are intact. Sclera are white anicteric. Subconjunctival mucosa is pink. Ears and nose are unremarkable. Oropharynx: There is no mucosal lesions, there is no thrush, there is no pharyngitis. Neck: Is supple, there are no nodes or masses or tenderness. Chest: Is clear to auscultation and percussion. There are no rales, rhonchi, wheezes or rubs. Heart: Rate, rhythm is regular. There is no murmur, rub or gallop. Abdomen: Good bowel sounds are present. Abdomen is soft, nontender, no organomegaly or masses were appreciated. Extremities: Are symmetrical and well perfused. There is no edema, there is no cellulitis, no rash. Neurologic: There are no focal neurological deficits. Cranial nerves II through XII are intact. There are no sensory or motor deficits. Psychiatric: Patients mood is calm and shows no sign of agitation. Genital: Deferred Rectal: Deferred Lab and Diagnostics Result Diagram: 06/22/1641 06/22/16 0941 Microbiology Name: HEATHER DE LA FUENTE Age/Sex: 65/M Attend Dr: Jl Gimenez Acct: [id number] Unit: [id number] Status: ALONZO ER Location: SED Re06/21/16 Disch: Specimen: [id number] Collected: 06/21/16 Status: NILSA Req#: [id number] Received: 06/21/16 Source: BLOOD Sp Desc : AA Ford Dr: Mazin Loaiza DO Ordered: BC Comments: Collected by Nurse/Unit? Y/N Y Comment: ER BED 2 BC Procedure Result Verified Site Microbiology SHARATH CULTURE BLOOD Preliminary 06/22/16 NO GROWTH AFTER 24 HOURS X-Rays, CTs and MRIs PROCEDURE: CT ANGIO CHEST PULMONARY EMBOLISM ([id number]) INDICATIONS: sob, cp, elevated d dimer TECHNIQUE: After the administration of intravenous contrast, 2 mm thick sections acquired from the pulmonary apices to the posterior costophrenic angles. 3-dimensional maximum intensity projection (MIP) coronal and sagittal reformats were then acquired through the thorax. For radiation dose reduction, the following was used: automated exposure control, adjustment of mA and/or kV according to patient size. COMPARISON: [facility], CT, CHEST ANGIO-PE, 03/21/2014, 14:37. FINDINGS: Image quality: Excellent. Pulmonary arteries: Pulmonary arteries are normal in size, and demonstrate no intraluminal filling defects to suggest central pulmonary embolism. Lungs and pleura: Lungs are clear. No pleural effusions or pneumothorax. Central and peripheral airways are patent. Mediastinum: Heart size is normal, without pericardial effusion. No mediastinal or hilar adenopathy. Thoracic aorta is normal in caliber and enhancement. Esophagus is normal in caliber. There is a small hiatal hernia. The distal esophagus is fluid-filled. Bones and chest wall: No suspicious bony lesions. Ribs and thoracic spine appear intact throughout. Thyroid gland is unremarkable. No axillary or supraclavicular adenopathy. Abdomen: Visualized upper abdominal solid organs appear normal in the early arterial phase of enhancement. IMPRESSION: 1. No acute pulmonary embolus. 2. Small hiatal hernia and fluid-filled esophagus. Note: The preliminary [facility] interpretation and the final report are concordan Chest X-ray IMPRESSION: 1. No evidence of pneumonia. 2. Findings suggestive of COPD redemonstrated. Dictated by: Marcelino Vance M.D. on 06/21/2016 at 8:40 Assessment & Plan 65-year-old male past medical history of DVT/PE no longer on anticoagulation due to GI bleeding 2014, diabetes type II, CHF, end-stage renal disease on hemodialysis, hypertension, and history of strokes 4, presenting today ED at [facility] with nausea and vomiting 2 days coffee-ground stool, hematemesis, that started at the same time the nausea and vomiting. #1 acute blood loss due to upper GI bleed; present on admission; ongoing Patient presents with only a mild decrease in his hematocrit but complains of ongoing hematemesis and melena Patient had previous GI bleed while on anticoagulation at the end of 2014 in and to 2016 with EGD only showing gastritis We will trend H&H GI has been consulted and plans on taking the patient to endoscopy tomorrow We will start Protonix drip per GI recommendations We will avoid Maalox as this patient also has chronic kidney disease on hemodialysis Patient was not given IV fluids and was taken to hemodialysis today Patient on ondansetron for nausea #2 chronic kidney disease requiring dialysis; present on admission; ongoing Patient cannot remember when the last time he was dialyzed, he is noted to not be the best historian Nephrology was consulted and patient was taken to dialysis today 06/22/2016. Patient is hypokalemic, and this can presumably be dealt with during hemodialysis; will trend #3 uncontrolled diabetes mellitus; present on admission; ongoing Patient is unable to confirm that he has diabetes. Unable to reach at this time. Patient presented with a blood glucose over 300 Order A1c We will continue patient on 20 units of Lantus and a medium correction scale #4 Acute leukocytosis; present admission; ongoing Patient reports chills but no fever, also a general sense of malaise, and lethargy; on return to the hospital this morning patient has an elevated white count of 14.5 Patient had blood cultures drawn before leaving the ED yesterday morning; we await those results We will hold off on antibiotics at this time as the leukocytosis may be due to acute dehydration from vomiting; currently no fever Will give 1 L of normal saline open and then maintenance fluid as needed #5 chronic hypothyroidism; present on admission; stable Continue home levothyroxine #6 chronic hyperlipidemia; present on admission; stable Continue home atorvastatin #7 hypertension, chronic; present admission; stable Continue on home carvedilol 12.5 mg Disposition: Will depend on endoscopy findings and how patient does over the next few days. Pain Evaluation: Adequate Pain Control GI Prophylaxis: Proton Pump Inhibitor VTE Prophylaxis: Other (anticoagulation not indicated due to active bleeding.) Resuscitation Status: CPR: Attempt Resuscitation Jl Abdul MD Jun 22, 2016 22:12
[2016-06-23] VITALS (7 sets, daily range): BP systolic 90–119; BP diastolic 55–68; PULSE 67–72; RESP 20–24; O2SAT 92–98
--- NOTE | 2016-06-23 05:35 | NUR ---
Restlessness/SOB Pt has been having SOB and restlessness most of the night. Administered melatonin for sleep aid but ineffective. Has been restless and having sob most of the night. 2.5LPM NC provides comfort. Pt has been prep and currently on NPO for EGD this am. Will continue to monitor.
[2016-06-23 05:37] LABS: BASOPHILS % (AUTO) 0.2 % (0-3); EOSINOPHILS % (AUTO) 1.9 % (0-5); MONOCYTES % (AUTO) 11.3 % (4-12); Mean Corpuscular Hemoglobin 31.6 pg (27.0-35.0); Mean Corpuscular Volume 98.5 fL (81-100); NEUTROPHILS % (AUTO) 78.1 % (40-74); Platelet Count 168 bil/L (150-400)
[2016-06-23 06:03] LABS: Magnesium 1.3 mg/dL (1.6-2.6); Phosphorus 3.3 mg/dL (2.5-4.9)
[2016-06-23] MEDS: Pantoprazole 4 mg/mL 10 mL Inj IVPUSH SCH ×2 (07:25→16:30)
[2016-06-23] MEDS ORDERED: Magnesium Sulf 2 Gm/50mL Water 2 GM in IV Premix 1 EACH IV ONE (08:05)
[2016-06-23] MEDS: Pantoprazole Inj 80 MG in 0.9% Sodium Chloride 80 ML IV SCH ×3 (08:15→23:35)
--- NOTE | 2016-06-23 08:15 | NUR ---
Refusing EGD/tele This RN spoke with pt this AM regarding refusal of tele monitor. Pt sts "I don't want to wear it". This RN educated pt on the importance of monitoring cardiac activity, both on the unit and while during EGD. Pt sts "I'm not going to be having any procedure completed today, Im not going to have it done". This RN notified endo, and GI . Called Queta (spouse) by phone, (spouse consented for procedure by phone) Queta sts "It's really not a convenient time for me right now. I was just getting up and getting dressed to go to [facility]" This RN advised Queta that as she was person who consented to the procedure, she would need to be here at the hospital to review the refusal with the MD and the pt. Queta did not offer any indication that she would be coming up to the hospital however she did call the pt and speak with him.
[2016-06-23] MEDS: Insulin LISPRO 300 Unit/3 mL Inj SUBQ SCH ×5 (08:17→22:00)
[2016-06-23 08:24] LABS: Unsaturated Iron Binding 172.4 ug/dL
[2016-06-23] MEDS ORDERED: Lactated Ringer's 1,000 ML IV ONE (08:52)
--- NOTE | 2016-06-23 08:52 | PCM.HPANE ---
Patient Data Surgeon Admitting Provider:Margaret Cavazos MD Attending Provider:Margaret Cavazos MD Primary Care Physician:[facility] Other Provider: Reason for Visit Upper Gi Bleed Ht/WT & BMI Height (Feet): 5 Height (Inches): 9.00 Weight (Kilograms): 113.800 Body Mass Index 37.16 Allergies Coded Allergies: No Known Allergies (Verified Allergy, Unknown, 06/21/16) Past Anesthesia History Anesthesia History: Denies:: Abnormal Airway, Anesthesia Reactions, Difficult Intubation, Fam Anesthesia Reaction, Fam Malignant Hypertherm, Malignant Hyperthermia Diabetes History Hx Diabetes?: Yes Current Bedside Blood Glucose: 209 MRSA MRSA: No Medications Blood Thinner: Coumadin Active Scripts Pantoprazole DR (Protonix)40 Mg Meurdp44 Mg PO BID #60 TABLET Prov:Jl Gimenez MD 09/19/15 Reported Medications Cholecalciferol (Vitamin D3) (Vitamin D3)1,000 Unit Tab.chew1,000 Unit PO DAILY 06/22/16 Melatonin 1 Mg Tablet1 Mg PO HS 06/22/16 Acetaminophen 500 Mg Tablet1,000 Mg PO Q6H PRN For Pain 07/27/15 oxyCODONE 5 Mg Capsule5 Mg PO Q6-8H PRN For Pain TAKE WITH BREAKFAST AND DINNER 11/23/14 Insulin Glargine (Lantus U100 Insulin Vial)100 Unit/Ml Vial20 Unit SUBQ HS 11/18/13 Atorvastatin Calcium 80 Mg Frmjvi34 Mg PO HS 11/18/13 Furosemide 20 Mg Tab80 Mg PO SuMoWeFr Hold on dialysis days 11/18/13 Insulin Aspart (NovoLOG U-100 Pen)100 Unit/Ml Insuln.pen5-8 Unit SUBQ TID- INSULIN Hold for blood glucose less than 150. 11/17/13 Levothyroxine 200 Mcg Ajuovb279 Mcg PO AM 11/17/13 Citalopram 40 Mg Lqjxwo11 Mg PO AM 11/17/13 Carvedilol 12.5 Mg Ovncxn29.5 Mg PO BID tAKE ON FRIDAY, FRIDAY, FRIDAY AND FRIDAY ONLY HOLD ON FRIDAY AND FRIDAY AND Friday11/17/13 Discontinued Reported Medications Sevelamer Carbonate (Renvela)800 Mg Kamdyu483 Mg PO NOON 11/03/14 Cholecalciferol (Vitamin D3) (Vitamin D3)2,000 Unit Capsule2,000 Unit PO AM 11/17/13 Discontinued Scripts Ondansetron ODT (Zofran ODT)4 Mg Tablet4 Mg PO Q4H PRN For Nausea #14 TABLET Prov:Marcy Diaz MD 06/05/16 Moxifloxacin 400 Mg Pmmrby213 Mg PO DAILY #4 TABLET Prov:Jeff Hernandez MD 11/25/15 Prochlorperazine Maleate (Compazine)10 Mg Mjhvsm46 Mg PO TIDAC PRN For Nausea # 20 TABLET Prov:Jl Gimenez MD 10/21/[address] 40 Mg Hsrusi51 Mg PO BID #60 Prov:Reggie Dawson DO 07/29/15 History History of ENT Problems?: Yes HEENT History: Positive for:: Cataracts Denies:: Abnormal Airway Difficult Intubation Dysphagia Glaucoma Hearing Problem Sinus Problem Hx of Heart Problems?: Yes Cardiovascular History: Positive for:: Chest Pain Congestive Heart Failure Edema Hypertension Denies:: AICD Cardiac Surgery Heart Murmur Irregular Heartbeat Pacemaker Thrombophlebitis Valvular Heart Disease Hx of Respiratory Problem?: No Respiratory History: Positive for:: Dyspnea Denies:: Asthma COPD Chest Surgery Emphysema Hemoptysis Pneumonia Tuberculosis Hx Neurologic Problems?: Yes Neurological History: Positive for:: CVA (Memory difficulties, some expressive aphasia, behavior) Dizziness Headaches (uses oxycodone) Denies:: Alzheimer's Disease Dementia Parkinson's Disease Seizures Hx of GI Problems?: Yes Gastrointestinal History: Positive for:: Diverticulitis Gastroesphageal Reflux Gastrointestinal Bleeding Heartburn Rectal Bleeding Denies:: Cirrhosis Hepatitis Hiatal Hernia Hx of Problems?: Yes Genitourinary History: Positive for:: HX of Hemodialysis (Friday, , Friday, right arm fistula) Denies:: Kidney Stones Urinary Tract Infection HX of Peritoneal Dialysis: No Male Hx: Denies:: Prostate Problems Scrotal Mass Testicular Surgery Hx Musculoskeletal Problems?: Yes Musculoskeletal History: Positive for:: Back Injury (herniated disc in low back) Denies:: Joint Replacement Musculoskeletal Trauma Hx of Psycho/Social Problems?: Yes Psycho Social History: Positive for:: Anxiety Hx Depression Denies:: Bipolar Disorder Suicide Attempt Hx Surgeries?: Yes (colostomy and colostomy reversal, Left shoulder dislocation ) Hx Any Other Health Problems?: Yes Other History: Positive for:: Hospitalization (PE, CVA, and surgeries below) Thyroid Disease (hypothyroid) Denies:: Cancer History Blood Transfusions: Positive for:: Accept Blood Products? Blood Transfusions Denies:: Blood Transfuse Reaction Hx Diabetes: YesBedside Blood Glucose: 209 Hx Alcohol Use: NoHx Substance Use: No Smoking Status: Never Smoker Have You Smoked inLast 12 mo: No Stop/Bang Treated for Sleep Apnea?: Yes Do You Have a CPAP Machine?: Yes (Doesn't use it at home.) S-Snoring: Do You Snore Loudly: Yes T-Tired: feel tired, fatigued: No O-Obsered: Observed not breath: No P-Blood Pressure: treated: Yes B- Body Mass Index > 35 kg/m2: Yes A- Age over 50: Yes N- Neck Large Circumference: Yes G- Gender Male: Yes TREMAINE Total Score: 6 Risk Assessment Category Category 1A: Patient has history of documented sleep apnea, and HAS NOT received any narcotic, sedative or anesthesia administration during this stay. Category 1B: Patient has history of documented sleep apnea, and HAS received any narcotic , sedative or anesthesia administration during this stay Category 2: Patient has SUSPECTED Obstructive Sleep Apnea, and HAS received any narcotic , sedative or anesthesia administration during this stay. Category 3: Patient has SUSPECTED Obstructive Sleep Apnea and HAS NOT received narcotic, sedative or anesthesia administration during this stay. Category 4: Outpatient in Procedural Areas with known sleep apnea or who screen positive for High Risk via the STOP/BANG questionnaire. Exam Exam Vital Signs Vital Signs Date Time Temp Pulse Resp B/P Pulse Ox O2 Delivery O2 Flow Rate FiO2 06/23/16 06:26 72 06/23/16 04:45 36.9 70 22 94/60 97 Room Air 06/23/16 01:24 67 24 90/60 93 Room Air Meds/Labs/Diagnostics Admission Meds Current Medications Insulin Glargine (Lantus Insulin Inj) 20 unit HS SUBQ Last administered on 06/22 20:54; Start 06/22/16 at 21:00 Melatonin (Melatonin) 1 mg HS PO Last administered on 06/22/16 23:31; Start at 21:00 Atorvastatin Calcium (Lipitor) 80 mg HS PO Last administered on 06/22/16 20:50 ; Start 06/22/16 at 21:00 Levothyroxine Sodium 200 mcg 200 mcg DAILYAC PO Last administered on 06/23/16 08:15; Start 06/23/16 at 07:30 Pantoprazole/ Sodium Chloride (Protonix Inj/ Normal Saline) 100 ml @ 10 mls/hr Q10H IV Last administered on 06/23/16 08:15; Start 06/22/16 at 14:15 Bedside Blood Glucose: 209 Labs Test 06/22/16 09:41 06/23/16 04:55 06/23/16 07:20 Prothrombin Time 10.5sec (8.1-12.5) Prothromb Time International Ratio 0.98ratio Activated Partial Thromboplast Time 20.0sec (22.8-33.0) Hemoglobin A1c 7.3% (4.8-5.6) White Blood Count 12.0th/mm3 (3.8-10.1) Red Blood Count 2.69mil/mm3 (4.40-5.80) Hemoglobin 8.5g/dL (13.8-17.2) Hematocrit 26.5% (41.0-50.0) Mean Corpuscular Volume 98.5fL (81-100) Mean Corpuscular Hemoglobin 31.6pg (27.0-35.0) Mean Corpuscular Hemoglobin Concent 32.1% (32.0-37.0) Red Cell Distribution Width 15.5% (12.3-15.4) Platelet Count 168bil/L (150-400) Neutrophils (%) (Auto) 78.1% (40-74) Lymphocytes (%) (Auto) 7.8% (14-46) Monocytes (%) (Auto) 11.3% (4-12) Eosinophils (%) (Auto) 1.9% (0-5) Basophils (%) (Auto) 0.2% (0-3) Sodium Level 135mEq/L (134-144) Potassium Level 4.1mEq/L (3.5-5.2) Chloride Level 92mEq/L (97-108) Carbon Dioxide Level 23mmol/L (18-29) Blood Urea Nitrogen 31mg/dL (8-27) Creatinine 5.15mg/dL (0.76-1.27) Estimat Glomerular Filtration Rate 12mL/min (>59) Glucose Level 171mg/dL (60-99) Calcium Level 7.9mg/dL (8.5-10.1) Phosphorus Level 3.3mg/dL (2.5-4.9) Magnesium Level 1.3mg/dL (1.6-2.6) Total Bilirubin 1.0mg/dL (0.0-1.2) Aspartate Amino Transf (AST/SGOT) 24U/L (0-50) Alanine Aminotransferase (ALT/SGPT) 11U/L (0-44) Alkaline Phosphatase 92U/L (25-160) Total Protein 6.6g/dL (6.4-8.4) Albumin 3.6g/dL (3.4-5.0) Iron Level 21ug/dL (35-150) Total Iron Binding Capacity 193ug/dL (250-450) Percent Iron Saturation 11%sat (15-50) Unsaturated Iron Binding 172.4ug/dL Ferritin 1235ng/mL (30-400) Plan Impression Case cancelled. NPO Status: 06/19@2029 Ishaan Whittaker MD Jun 23, 2016 08:52 Ishaan Whittaker MD Jun 23, 2016 08:52
--- NOTE | 2016-06-23 10:41 | PCM.PNMED ---
Subjective Date of Service Jun 23, 2016 Subjective no bowel movement of hematemesis overnight Mr De La Fuente deferred endoscopy this morning. He also did not want to have his IV replaced. after talking to him in detail he finally consented to having IV replaced and going ahead with endoscopy. Exam Vital Signs Vital Sign - Last Date Time Temp Pulse Resp B/P Pulse Ox O2 Delivery O2 Flow Rate FiO2 06/23/16 06:26 72 06/23/16 04:45 36.9 22 94/60 97 Room Air 06/22/16 20:48 2.00 Intake and Output 06/22/16 06/22/16 06/23/16 Cumulative From/Thru 15:00 23:00 07:00 06/22/16 02:32 - 06/22/16 18:12 Intake Total 390 ml 1800 ml 2338 ml Output Total 2000 ml 2000 ml Balance 390 ml -200 ml 338 ml Intake Oral 390 ml 1800 ml 2190 ml IV Total 148 ml Output Ultrafiltrate 2000 ml 2000 ml # Voids 1 1 2 # Bowel Movements 0 0 Exam GEN- no apparent distress HEENT- no icterus, mild pallor RESP-clear to auscultation bilaterally CVS-RRR abdomen-soft, non tender, non distended EXT-edema present Lab and Diagnostics Result Diagram: 06/23/16 0455 06/23/16 0455 Microbiology Name: HEATHER DE LA FUENTE Age/Sex: 65/M Attend Dr: Jl Gimenez Acct: [id number] Unit: [id number] Status: ALONZO Location: SED Re06/21/16 Disch: Specimen: [id number] Collected: 06/21/16 Status: RES Req#: [id number] Received: 06/21/16 Source: BLOOD Sp Desc : AA Subm Dr: Mazin Loaiza DO Ordered: BC Comments: Collected by Nurse/Unit? Y/N Y Comment: ER BED 2 BC Procedure Result Verified Site Microbiology SHARATH CULTURE BLOOD Preliminary 06/22/16 NO GROWTH AFTER 24 HOURS X-Rays, CTs and MRIs PROCEDURE: CT ANGIO CHEST PULMONARY EMBOLISM ([id number]) INDICATIONS: sob, cp, elevated d dimer TECHNIQUE: After the administration of intravenous contrast, 2 mm thick sections acquired from the pulmonary apices to the posterior costophrenic angles. 3-dimensional maximum intensity projection (MIP) coronal and sagittal reformats were then acquired through the thorax. For radiation dose reduction, the following was used: automated exposure control, adjustment of mA and/or kV according to patient size. COMPARISON: [facility], CT, CHEST ANGIO-PE, 03/21/2014, 14:37. FINDINGS: Image quality: Excellent. Pulmonary arteries: Pulmonary arteries are normal in size, and demonstrate no intraluminal filling defects to suggest central pulmonary embolism. Lungs and pleura: Lungs are clear. No pleural effusions or pneumothorax. Central and peripheral airways are patent. Mediastinum: Heart size is normal, without pericardial effusion. No mediastinal or hilar adenopathy. Thoracic aorta is normal in caliber and enhancement. Esophagus is normal in caliber. There is a small hiatal hernia. The distal esophagus is fluid-filled. Bones and chest wall: No suspicious bony lesions. Ribs and thoracic spine appear intact throughout. Thyroid gland is unremarkable. No axillary or supraclavicular adenopathy. Abdomen: Visualized upper abdominal solid organs appear normal in the early arterial phase of enhancement. IMPRESSION: 1. No acute pulmonary embolus. 2. Small hiatal hernia and fluid-filled esophagus. Note: The preliminary [facility] interpretation and the final report are concordan Chest X-ray IMPRESSION: 1. No evidence of pneumonia. 2. Findings suggestive of COPD redemonstrated. Dictated by: Marcelino Vance M.D. on 06/21/2016 at 8:40 Assessment & Plan History of hematemesis and melena/Anemia -H/H down a bit but without overt bleeding -plan for EGD with anesthesia tomorrow -follow H/H closely Q8 hours and transfuse blood products as needed -continue PPI drip GI Prophylaxis: Proton Pump Inhibitor VTE Prophylaxis: Other (anticoagulation not indicated due to active bleeding.) Resuscitation Status: CPR: Attempt Resuscitation José Morse MD Jun 23, 2016 10:41
[2016-06-23] MEDS ORDERED: Iron Sucrose Inj 200 MG in 0.9% Sodium Chloride 100 ML IV ONE (13:30)
[2016-06-23] MEDS ORDERED: Darbepoetin Alfa 60 mCg/0.3 mL Inj SUBQ ONE (13:30)
--- NOTE | 2016-06-23 13:33 | PCM.PNMED ---
Subjective Date of Service Jun 23, 2016 Subjective Per nurse, pt has been confused at times. eval by GI, planned for EGD in am. HD yesterday without complications. Hb 8.5, BP on the low side. He is not so sure exactly who his primary patient observation assistant is. Exam Vital Signs Vital Sign - Last Date Time Temp Pulse Resp B/P Pulse Ox O2 Delivery O2 Flow Rate FiO2 06/23/16 08:15 Supplement Oxygen 06/23/16 06:26 72 06/23/16 04:45 36.9 22 94/60 97 06/22/16 20:48 2.00 Intake and Output 06/22/16 06/22/16 06/23/16 Cumulative From/Thru 15:00 23:00 07:00 06/22/16 02:32 - 06/22/16 18:12 Intake Total 390 ml 1800 ml 2338 ml Output Total 2000 ml 2000 ml Balance 390 ml -200 ml 338 ml Intake Oral 390 ml 1800 ml 2190 ml IV Total 148 ml Output Ultrafiltrate 2000 ml 2000 ml # Voids 1 1 2 # Bowel Movements 0 0 Exam General appearance: Awake, confused. No acute distress. HEENT: Mild pallor. No jaundice. No JVD. No lymphadenopathy. No thyroid enlargement. Heart: Regular rhythm. Normal S1, S2. No murmurs, rubs or gallops. Lungs: Coarse crackles noted. Expiratory wheezing noted. No accessory muscle use. Abdomen: Soft, obese, active bowel sounds. No hepatosplenomegaly. Extremities: No edema, cyanosis or clubbing of fingers. AVF with good thrills. Lab and Diagnostics Result Diagram: 06/23/16 0455 06/23/16 0455 Microbiology Name: SUDHAKARHEATHER Boswell Age/Sex: 65/M Attend Dr: Jl Gimenez Acct: [id number] Unit: [id number] Status: [facility] ER Location: SED Re06/21/16 Disch: Specimen: [id number] Collected: 06/21/16 Status: RES Req#: [id number] Received: 06/21/16 Source: BLOOD Sp Desc : AA Ford Dr: Mazin Loaiza DO Ordered: Comments: Collected by Nurse/Unit? Y/N Y Comment: ER BED 2 BC Procedure Result Verified Site Microbiology SHARATH CULTURE BLOOD Preliminary 06/22/16 NO GROWTH AFTER 24 HOURS X-Rays, CTs and MRIs PROCEDURE: CT ANGIO CHEST PULMONARY EMBOLISM ([id number]) INDICATIONS: sob, cp, elevated d dimer TECHNIQUE: After the administration of intravenous contrast, 2 mm thick sections acquired from the pulmonary apices to the posterior costophrenic angles. 3-dimensional maximum intensity projection (MIP) coronal and sagittal reformats were then acquired through the thorax. For radiation dose reduction, the following was used: automated exposure control, adjustment of mA and/or kV according to patient size. COMPARISON: [facility], CT, CHEST ANGIO-PE, 03/21/2014, 14:37. FINDINGS: Image quality: Excellent. Pulmonary arteries: Pulmonary arteries are normal in size, and demonstrate no intraluminal filling defects to suggest central pulmonary embolism. Lungs and pleura: Lungs are clear. No pleural effusions or pneumothorax. Central and peripheral airways are patent. Mediastinum: Heart size is normal, without pericardial effusion. No mediastinal or hilar adenopathy. Thoracic aorta is normal in caliber and enhancement. Esophagus is normal in caliber. There is a small hiatal hernia. The distal esophagus is fluid-filled. Bones and chest wall: No suspicious bony lesions. Ribs and thoracic spine appear intact throughout. Thyroid gland is unremarkable. No axillary or supraclavicular adenopathy. Abdomen: Visualized upper abdominal solid organs appear normal in the early arterial phase of enhancement. IMPRESSION: 1. No acute pulmonary embolus. 2. Small hiatal hernia and fluid-filled esophagus. Note: The preliminary [facility] interpretation and the final report are concordan Chest X-ray IMPRESSION: 1. No evidence of pneumonia. 2. Findings suggestive of COPD redemonstrated. Dictated by: Marcelino Vance M.D. on 06/21/2016 at 8:40 Assessment & Plan ASSESSMENT: 1. End-stage renal disease, on hemodialysis every Friday, , Friday. 2. History of gastrointestinal bleed. At this time presented with black tarry stool. Gastroenterology has been consulted. 3. Anemia: low SI, low TIBC, low Tsat, high ferritin. 3. Type 2 diabetes with renal manifestation. 4. Hypertension with hypertensive nephrosclerosis. 5. Productive cough with leukocytosis. 6. Dyslipidemia. 7. Hypothyroid. 8. History of cerebrovascular accident. Plan: no urgent HD indicated today. will follow his routine HD schedule. NPO AMN, EGD in am. add aranesp 60 mcg subQ x1 today. GI Prophylaxis: Proton Pump Inhibitor VTE Prophylaxis: Other (anticoagulation not indicated due to active bleeding.) Resuscitation Status: CPR: Attempt Resuscitation Laura Ramirez MD Jun 23, 2016 13:32
--- NOTE | 2016-06-23 22:11 | PCM.PNMED ---
Subjective Date of Service Jun 23, 2016 Subjective Patient has no new complaints. He is now agreeable to have his endoscopy. He has no active vomiting. Exam Vital Signs Vital Sign - Last Date Time Temp Pulse Resp B/P Pulse Ox O2 Delivery O2 Flow Rate FiO2 06/23/16 20:10 37.0 67 20 119/68 98 Nasal Cannula 2.00 Intake and Output 06/22/16 06/22/16 06/23/16 Cumulative From/Thru 15:00 23:00 07:00 06/22/16 02:32 - 06/22/16 18:12 Intake Total 390 ml 1800 ml 2338 ml Output Total 2000 ml 2000 ml Balance 390 ml -200 ml 338 ml Intake Oral 390 ml 1800 ml 2190 ml IV Total 148 ml Output Ultrafiltrate 2000 ml 2000 ml # Voids 1 1 2 # Bowel Movements 0 0 Exam General: Patient is in no apparent distress, he is sitting up in a bedside chair. HEENT: Head is atraumatic normocephalic with normal male pattern baldness. Eyes : Pupils are equally round and reactive to light and accommodation. Extraocular muscles are intact. Sclera are white anicteric. Subconjunctival mucosa is pink. Ears and nose are unremarkable. Oropharynx: There is no mucosal lesions, there is no thrush, there is no pharyngitis. Neck: Is supple, there are no nodes, or masses or tenderness. Chest: Is clear to auscultation and percussion. There are no rales, rhonchi, wheezes or rubs. Heart: Rate, rhythm is regular. There is no murmur, rub or gallop. Abdomen: Good bowel sounds are present. Abdomen is obese, soft, nontender, no organomegaly or masses were appreciated. Extremities: Are symmetrical and well perfused. There is no edema, there is no cellulitis, no rash. Neurologic: There are no focal neurological deficits. Cranial nerves II through XII are intact. There are no sensory or motor deficits. Psychiatric: Patients mood is calm and shows no sign of agitation. Genital: Deferred Rectal: Deferred Lab and Diagnostics Result Diagram: 06/23/16 0455 06/23/16 0455 Microbiology Name: HEATHER DE LA FUENTE Age/Sex: 65/M Attend Dr: Jl Gimenez Acct: [id number] Unit: [id number] Status: DEP ER Location: SED Re06/21/16 Disch: Specimen: [id number] Collected: 06/21/16 Status: RES Req#: [id number] Received: 06/21/16 Source: BLOOD Sp Desc : AA Ford Dr: Mazin Loaiza DO Ordered: BC Comments: Collected by Nurse/Unit? Y/N Y Comment: ER BED 2 BC Procedure Result Verified Site Microbiology SHARATH CULTURE BLOOD Preliminary 06/22/16 NO GROWTH AFTER 24 HOURS X-Rays, CTs and MRIs PROCEDURE: CT ANGIO CHEST PULMONARY EMBOLISM ([id number]) INDICATIONS: sob, cp, elevated d dimer TECHNIQUE: After the administration of intravenous contrast, 2 mm thick sections acquired from the pulmonary apices to the posterior costophrenic angles. 3-dimensional maximum intensity projection (MIP) coronal and sagittal reformats were then acquired through the thorax. For radiation dose reduction, the following was used: automated exposure control, adjustment of mA and/or kV according to patient size. COMPARISON: [facility], CT, CHEST ANGIO-PE, 03/21/2014, 14:37. FINDINGS: Image quality: Excellent. Pulmonary arteries: Pulmonary arteries are normal in size, and demonstrate no intraluminal filling defects to suggest central pulmonary embolism. Lungs and pleura: Lungs are clear. No pleural effusions or pneumothorax. Central and peripheral airways are patent. Mediastinum: Heart size is normal, without pericardial effusion. No mediastinal or hilar adenopathy. Thoracic aorta is normal in caliber and enhancement. Esophagus is normal in caliber. There is a small hiatal hernia. The distal esophagus is fluid-filled. Bones and chest wall: No suspicious bony lesions. Ribs and thoracic spine appear intact throughout. Thyroid gland is unremarkable. No axillary or supraclavicular adenopathy. Abdomen: Visualized upper abdominal solid organs appear normal in the early arterial phase of enhancement. IMPRESSION: 1. No acute pulmonary embolus. 2. Small hiatal hernia and fluid-filled esophagus. Note: The preliminary [facility] interpretation and the final report are concordan Chest X-ray IMPRESSION: 1. No evidence of pneumonia. 2. Findings suggestive of COPD redemonstrated. Dictated by: Marcelino Vance M.D. 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 Patient has coffee- ground stool, hematemesis, that started at the same time the nausea and vomiting. #1 Acute blood loss due to upper GI bleed; present on admission; ongoing Patient presents with only a mild decrease in his hematocrit but complains of ongoing hematemesis and melena Patient had previous GI bleed while on anticoagulation at the end of 2014 in and to 2016 with EGD only showing gastritis We will trend H&H GI has been consulted and plans on taking the patient to endoscopy tomorrow as patient was reluctant to go this morning and the procedure had to be rescheduled. We will continue Protonix drip per GI recommendations We will avoid Maalox as this patient also has chronic kidney disease on hemodialysis Patient was not given IV fluids and was taken to hemodialysis yesterday Patient on ondansetron for nausea #2 Chronic kidney disease requiring dialysis; present on admission; ongoing Patient cannot remember when the last time he was dialyzed, he is noted to not be the best historian Nephrology was consulted and patient was taken to dialysis today 06/22/2016. Patient hypokalemic, and this has been corrected on hemodialysis yesterday. #3 Uncontrolled diabetes mellitus; present on admission; ongoing Patient presented with a blood glucose over 300 Hgb A1c was 7.3 We will continue patient on 20 units of Lantus and a medium correction scale #4 Acute leukocytosis; present admission; ongoing Patient reports chills but no fever, also a general sense of malaise, and lethargy; on return to the hospital the patient had an elevated white count of 14.5. Today 06/23/2016 the white blood cell count has improved to 12.0 Patient had blood cultures drawn before leaving the ED yesterday morning; we await those results We will hold off on antibiotics at this time as the leukocytosis may be due to acute dehydration from vomiting; currently no fever Will give 1 L of normal saline open and then maintenance fluid as needed #5 Chronic hypothyroidism; present on admission; stable Continue home levothyroxine #6 Chronic hyperlipidemia; present on admission; stable Continue home atorvastatin #7 Hypertension, chronic; present admission; stable Continue on home carvedilol 12.5 mg Disposition: Will depend on endoscopy findings and how patient does over the next few days Pain Evaluation: Adequate Pain Control GI Prophylaxis: Proton Pump Inhibitor VTE Prophylaxis: Other (anticoagulation not indicated due to active bleeding.) Resuscitation Status: CPR: Attempt Resuscitation [place] MD Jun 23, 2016 22:11
[2016-06-23] MEDS: Insulin GLARgine 100 Unit/mL Syringe SUBQ SCH (23:23)
[2016-06-24] VITALS (14 sets, daily range): BP systolic 80–110; BP diastolic 43–67; PULSE 63–86; RESP 16–22; O2SAT 93–96
[2016-06-24] MEDS: Pantoprazole Inj 80 MG in 0.9% Sodium Chloride 80 ML IV SCH ×2 (06:15→17:54)
--- NOTE | 2016-06-24 06:34 | NUR ---
Uneventful Night: Pt had an uneventful night, no c/o pain, chest pain or SOB. Pt slept most of the night, pleasant and cooperative with care.
[2016-06-24] MEDS: Pantoprazole 4 mg/mL 10 mL Inj IVPUSH SCH ×2 (07:32→16:30)
[2016-06-24] MEDS: Insulin LISPRO 300 Unit/3 mL Inj SUBQ SCH ×4 (07:40→21:42)
[2016-06-24 10:09] LABS: BASOPHILS % (AUTO) 0.4 % (0-3); EOSINOPHILS % (AUTO) 2.6 % (0-5); MONOCYTES % (AUTO) 11.6 % (4-12); Mean Corpuscular Hemoglobin 32.5 pg (27.0-35.0); Mean Corpuscular Volume 97.5 fL (81-100); NEUTROPHILS % (AUTO) 77.1 % (40-74); Platelet Count 144 bil/L (150-400)
--- NOTE | 2016-06-24 10:22 | NUR ---
[facility] Signed 1015AM
[2016-06-24 10:29] LABS: Magnesium 1.8 mg/dL (1.6-2.6)
--- NOTE | 2016-06-24 10:37 | NUR ---
would like to be called with any updates or changes in condition. She states that pt isn't always "clear" with his descriptions of what is happening. Queta Harrell ph# [phone]
[2016-06-24] MEDS ORDERED: 0.9% Sodium Chloride 500 ML IV ONE (14:10)
--- NOTE | 2016-06-24 14:29 | PCM.PNMED ---
Subjective Date of Service Jun 24, 2016 Subjective Patient quite somnolent and lethargic today. His last medication for pain was last night. He does not offer any new complaints and denies any chest pain, shortness of breath or vomiting. Exam Vital Signs Vital Sign - Last Date Time Temp Pulse Resp B/P Pulse Ox O2 Delivery O2 Flow Rate FiO2 06/24/16 14:00 88/48 06/24/16 13:37 36.9 67 20 94 Nasal Cannula 2.00 Intake and Output 06/23/16 06/23/16 06/24/16 Cumulative From/Thru 15:00 23:00 07:00 06/22/16 02:32 - 06/24/16 06:38 Intake Total 0 ml 2013 ml 205 ml 4556 ml Output Total 2000 ml Balance 0 ml 2013 ml 205 ml 2556 ml Intake Oral 0 ml 1640 ml 3830 ml IV Total 373 ml 205 ml 726 ml Output Ultrafiltrate 2000 ml # Voids 1 3 # Bowel Movements 0 0 0 Exam HEENT examination is remarkable for pale sclera. Neck is supple without adenopathy thyromegaly or venous distention. Lungs were clear to auscultation. Heart is regular rhythm with a soft systolic murmur. Abdomen is soft without any tenderness or rebound guarding masses or hepatosplenomegaly. Extremities are shortness N clubbing cyanosis or edema. Lab and Diagnostics Result Diagram: 06/24/1640 06/24/16 0940 Microbiology Name: HEATHER DE LA FUENTE Age/Sex: 65/M Attend Dr: Jl Gimenez Acct: [id number] Unit: [id number] Status: [facility] Location: SED Re06/21/16 Disch: Specimen: [id number] Collected: 06/21/16 Status: RES Req#: [id number] Received: 06/21/16 Source: BLOOD Sp Desc : AA Subm Dr: Mazin Loaiza DO Ordered: BC Comments: Collected by Nurse/Unit? Y/N Y Comment: ER BED 2 BC Procedure Result Verified Site Microbiology SHARATH CULTURE BLOOD Preliminary 06/22/16 NO GROWTH AFTER 24 HOURS X-Rays, CTs and MRIs PROCEDURE: CT ANGIO CHEST PULMONARY EMBOLISM ([id number]) INDICATIONS: sob, cp, elevated d dimer TECHNIQUE: After the administration of intravenous contrast, 2 mm thick sections acquired from the pulmonary apices to the posterior costophrenic angles. 3-dimensional maximum intensity projection (MIP) coronal and sagittal reformats were then acquired through the thorax. For radiation dose reduction, the following was used: automated exposure control, adjustment of mA and/or kV according to patient size. COMPARISON: [facility], CT, CHEST ANGIO-PE, 03/21/2014, 14:37. FINDINGS: Image quality: Excellent. Pulmonary arteries: Pulmonary arteries are normal in size, and demonstrate no intraluminal filling defects to suggest central pulmonary embolism. Lungs and pleura: Lungs are clear. No pleural effusions or pneumothorax. Central and peripheral airways are patent. Mediastinum: Heart size is normal, without pericardial effusion. No mediastinal or hilar adenopathy. Thoracic aorta is normal in caliber and enhancement. Esophagus is normal in caliber. There is a small hiatal hernia. The distal esophagus is fluid-filled. Bones and chest wall: No suspicious bony lesions. Ribs and thoracic spine appear intact throughout. Thyroid gland is unremarkable. No axillary or supraclavicular adenopathy. Abdomen: Visualized upper abdominal solid organs appear normal in the early arterial phase of enhancement. IMPRESSION: 1. No acute pulmonary embolus. 2. Small hiatal hernia and fluid-filled esophagus. Note: The preliminary [facility] interpretation and the final report are concordan Chest X-ray IMPRESSION: 1. No evidence of pneumonia. 2. Findings suggestive of COPD redemonstrated. Dictated by: Marcelino Vance M.D. 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 GI Prophylaxis: Proton Pump Inhibitor VTE Prophylaxis: Other (anticoagulation not indicated due to active bleeding.) Resuscitation Status: CPR: Attempt Resuscitation Wilson Jimenez DO Jun 24, 2016 14:29
--- NOTE | 2016-06-24 14:40 | NUR ---
off the floor pt is transported in hospital bed to have an EGD.
[2016-06-24] MEDS ORDERED: Ketamine 10 mg/mL 20 mL Inj ONE (14:54)
[2016-06-24] MEDS ORDERED: 0.9% Sodium Chloride 1,000 ML ONE (15:05)
--- NOTE | 2016-06-24 15:06 | PCM.HPANE ---
Patient Data Surgeon Admitting Provider:Margaret Cavazos MD Attending Provider:Margaret Cavazos MD Primary Care Physician:[place],[facility] Other Provider: Reason for Visit Upper Gi Bleed Ht/WT & BMI Height (Feet): 5 Height (Inches): 9.00 Weight (Kilograms): 113.800 Body Mass Index 37.00 Allergies Coded Allergies: No Known Allergies (Verified Allergy, Unknown, 06/21/16) Past Anesthesia History Anesthesia History: Denies:: Abnormal Airway, Anesthesia Reactions, Difficult Intubation, Fam Anesthesia Reaction, Fam Malignant Hypertherm, Malignant Hyperthermia Diabetes History Hx Diabetes?: Yes Current Bedside Blood Glucose: 256 MRSA MRSA: No Medications Blood Thinner: Coumadin Active Scripts Pantoprazole DR (Protonix)40 Mg Aggneg04 Mg PO BID #60 TABLET Prov:Jl Gimenez MD 09/19/15 Reported Medications Cholecalciferol (Vitamin D3) (Vitamin D3)1,000 Unit Tab.chew1,000 Unit PO DAILY 06/22/16 Melatonin 1 Mg Tablet1 Mg PO HS 06/22/16 Acetaminophen 500 Mg Tablet1,000 Mg PO Q6H PRN For Pain 07/27/15 oxyCODONE 5 Mg Capsule5 Mg PO Q6-8H PRN For Pain TAKE WITH BREAKFAST AND DINNER 11/23/14 Insulin Glargine (Lantus U100 Insulin Vial)100 Unit/Ml Vial20 Unit SUBQ HS 11/18/13 Atorvastatin Calcium 80 Mg Ouhzwt71 Mg PO HS 11/18/13 Furosemide 20 Mg Tab80 Mg PO SuMoWeFr Hold on dialysis days 11/18/13 Insulin Aspart (NovoLOG U-100 Pen)100 Unit/Ml Insuln.pen5-8 Unit SUBQ TID- INSULIN Hold for blood glucose less than 150. 11/17/13 Levothyroxine 200 Mcg Ybcnxh706 Mcg PO AM 11/17/13 Citalopram 40 Mg Lfidqj45 Mg PO AM 11/17/13 Carvedilol 12.5 Mg Aycufj60.5 Mg PO BID tAKE ON FRIDAY, FRIDAY, FRIDAY AND FRIDAY ONLY HOLD ON FRIDAY AND FRIDAY AND Friday11/17/13 Discontinued Reported Medications Sevelamer Carbonate (Renvela)800 Mg Cejbwl289 Mg PO NOON 11/03/14 Cholecalciferol (Vitamin D3) (Vitamin D3)2,000 Unit Capsule2,000 Unit PO AM 11/17/13 Discontinued Scripts Ondansetron ODT (Zofran ODT)4 Mg Tablet4 Mg PO Q4H PRN For Nausea #14 TABLET Prov:Marcy Diaz MD 06/05/16 Moxifloxacin 400 Mg Hapkrz714 Mg PO DAILY #4 TABLET Prov:Jeff Hernandez MD 11/25/15 Prochlorperazine Maleate (Compazine)10 Mg Ffyjgr10 Mg PO TIDAC PRN For Nausea # 20 TABLET Prov:Jl Gimenez MD 10/21/[address] 40 Mg Zwkqrm36 Mg PO BID #60 Prov:Reggie Dawson DO 07/29/15 History History of ENT Problems?: Yes HEENT History: Positive for:: Cataracts Denies:: Abnormal Airway Difficult Intubation Dysphagia Glaucoma Hearing Problem Sinus Problem Hx of Heart Problems?: Yes Cardiovascular History: Positive for:: Chest Pain Congestive Heart Failure Edema Hypertension Denies:: AICD Cardiac Surgery Heart Murmur Irregular Heartbeat Pacemaker Thrombophlebitis Valvular Heart Disease Hx of Respiratory Problem?: No Respiratory History: Positive for:: Dyspnea Denies:: Asthma COPD Chest Surgery Emphysema Hemoptysis Pneumonia Tuberculosis Hx Neurologic Problems?: Yes Neurological History: Positive for:: CVA (Memory difficulties, some expressive aphasia, behavior) Dizziness Headaches (uses oxycodone) Denies:: Alzheimer's Disease Dementia Parkinson's Disease Seizures Hx of GI Problems?: Yes Gastrointestinal History: Positive for:: Diverticulitis Gastroesphageal Reflux Gastrointestinal Bleeding Heartburn Rectal Bleeding Denies:: Cirrhosis Hepatitis Hiatal Hernia Hx of Problems?: Yes Genitourinary History: Positive for:: HX of Hemodialysis (Friday, , Friday, right arm fistula) Denies:: Kidney Stones Urinary Tract Infection HX of Peritoneal Dialysis: No Male Hx: Denies:: Prostate Problems Scrotal Mass Testicular Surgery Hx Musculoskeletal Problems?: Yes Musculoskeletal History: Positive for:: Back Injury (herniated disc in low back) Denies:: Joint Replacement Musculoskeletal Trauma Hx of Psycho/Social Problems?: Yes Psycho Social History: Positive for:: Anxiety Hx Depression Denies:: Bipolar Disorder Suicide Attempt Hx Surgeries?: Yes (colostomy and colostomy reversal, Left shoulder dislocation ) Hx Any Other Health Problems?: Yes Other History: Positive for:: Hospitalization (PE, CVA, and surgeries below) Thyroid Disease (hypothyroid) Denies:: Cancer History Blood Transfusions: Positive for:: Accept Blood Products? Blood Transfusions Denies:: Blood Transfuse Reaction Hx Diabetes: YesBedside Blood Glucose: 256 Hx Alcohol Use: NoHx Substance Use: No Smoking Status: Never Smoker Have You Smoked inLast 12 mo: No Stop/Bang Treated for Sleep Apnea?: Yes Do You Have a CPAP Machine?: Yes (Doesn't use it at home.) S-Snoring: Do You Snore Loudly: Yes T-Tired: feel tired, fatigued: No O-Obsered: Observed not breath: No P-Blood Pressure: treated: Yes B- Body Mass Index > 35 kg/m2: Yes A- Age over 50: Yes N- Neck Large Circumference: Yes G- Gender Male: Yes TREMAINE Total Score: 6 TREMAINE Risk Assessment: High Risk, =/>3 Yes TREMAINE Category 4 OutPt Procedure: Yes Risk Assessment Category Category 1A: Patient has history of documented sleep apnea, and HAS NOT received any narcotic, sedative or anesthesia administration during this stay. Category 1B: Patient has history of documented sleep apnea, and HAS received any narcotic , sedative or anesthesia administration during this stay Category 2: Patient has SUSPECTED Obstructive Sleep Apnea, and HAS received any narcotic , sedative or anesthesia administration during this stay. Category 3: Patient has SUSPECTED Obstructive Sleep Apnea and HAS NOT received narcotic, sedative or anesthesia administration during this stay. Category 4: Outpatient in Procedural Areas with known sleep apnea or who screen positive for High Risk via the STOP/BANG questionnaire. Exam Exam Vital Signs Vital Signs Date Time Temp Pulse Resp B/P Pulse Ox O2 Delivery O2 Flow Rate FiO2 06/24/16 14:49 36.8 65 20 87/43 96 Nasal Cannula 2 06/24/16 14:00 88/48 06/24/16 13:37 36.9 67 20 80/49 94 Nasal Cannula 2.00 06/24/16 11:17 64 06/24/16 09:57 Supplement Oxygen 06/24/16 09:45 37.3 69 22 103/66 95 Nasal Cannula 2.00 General Appearance: Alert, Oriented X3, Cooperative, No Acute Distress HEENT/AIRWAY: MP 2 Lungs: Clear to Auscultation, Normal Air Movement Heart: Exam Unremarkable, Regular Rate/Rhythm, No Murmurs/Rubs/Gallops Meds/Labs/Diagnostics Admission Meds Current Medications Sodium Chloride (Normal Saline) 500 ml @ 0 mls/hr Q0M ONCE IV Last administered on 06/24/16t 14:14; Start 06/24/16 at 14:10; Stop 06/24/16 at 14:11 ; Status DC Bedside Blood Glucose: 256 Labs Test 06/22/16 09:41 06/23/16 04:55 06/23/16 07:20 06/24/16 09:40 Prothrombin Time 10.5sec (8.1-12.5) Prothromb Time International Ratio 0.98ratio Activated Partial Thromboplast Time 20.0sec (22.8-33.0) Hemoglobin A1c 7.3% (4.8-5.6) Phosphorus Level 3.3mg/dL (2.5-4.9) Iron Level 21ug/dL (35-150) Total Iron Binding Capacity 193ug/dL (250-450) Percent Iron Saturation 11%sat (15-50) Unsaturated Iron Binding 172.4ug/dL Ferritin 1235ng/mL (30-400) White Blood Count 10.2th/mm3 (3.8-10.1) Red Blood Count 2.40mil/mm3 (4.40-5.80) Hemoglobin 7.8g/dL (13.8-17.2) Hematocrit 23.4% (41.0-50.0) Mean Corpuscular Volume 97.5fL (81-100) Mean Corpuscular Hemoglobin 32.5pg (27.0-35.0) Mean Corpuscular Hemoglobin Concent 33.3% (32.0-37.0) Red Cell Distribution Width 15.1% (12.3-15.4) Platelet Count 144bil/L (150-400) Neutrophils (%) (Auto) 77.1% (40-74) Lymphocytes (%) (Auto) 7.5% (14-46) Monocytes (%) (Auto) 11.6% (4-12) Eosinophils (%) (Auto) 2.6% (0-5) Basophils (%) (Auto) 0.4% (0-3) Sodium Level 134mEq/L (134-144) Potassium Level 3.6mEq/L (3.5-5.2) Chloride Level 93mEq/L (97-108) Carbon Dioxide Level 24mmol/L (18-29) Blood Urea Nitrogen 44mg/dL (8-27) Creatinine 7.16mg/dL (0.76-1.27) Estimat Glomerular Filtration Rate 8mL/min (>59) Glucose Level 162mg/dL (60-99) Calcium Level 7.3mg/dL (8.5-10.1) Magnesium Level 1.8mg/dL (1.6-2.6) Total Bilirubin 1.1mg/dL (0.0-1.2) Aspartate Amino Transf (AST/SGOT) 15U/L (0-50) Alanine Aminotransferase (ALT/SGPT) 7U/L (0-44) Alkaline Phosphatase 80U/L (25-160) Total Protein 5.9g/dL (6.4-8.4) Albumin 3.0g/dL (3.4-5.0) Plan Impression Patient chart reviewed, patient interviewed and anesthestic plan with risks, benefits, and alternatives discussed, and informed consent obtained. NPO Status: 06/19@2029 ASA Physical Status: ASA3 Severe Disease (crf, dm, upper gi bleed) Anesthetic Plan: MAC Bene/Risks/Altern/Consents: Yes HP Complete Prior to Induction: Yes Gerald Nathan MD Jun 24, 2016 15:06
[2016-06-24] MEDS ORDERED: Lactated Ringer's 1,000 ML IV SCH (15:07)
[2016-06-24] MEDS ORDERED: MetoCLOpramide 5 mg/mL 2 mL Inj IVPUSH PRN (15:10)
[2016-06-24] MEDS: Insulin GLARgine 100 Unit/mL Syringe SUBQ SCH (21:42)
[2016-06-24] MEDS: PEG/Electrolytes 4,000 mL Solution PO SCH (21:43)
--- NOTE | 2016-06-24 22:39 | ENDO ---
[address] [address] ENDOSCOPY PROCEDURE PATIENT: HEATHER DE LA FUENTE : 1950 MR#: [id number] ADMIT: 06/22/2016 JOB ID: [id number] DATE OF PROCEDURE: PROCEDURE: Esophagogastroduodenoscopy. INDICATION: Melena and anemia. ANESTHESIA: Patient's ASA classification, Mallampati score and medications as per Dr. Gerald Nathan's anesthesia report. INSTRUMENT USED: [id number]. PROCEDURE DETAILS: After informed consent was obtained from patient's via telephone conversation, the patient was brought into the GI suite, where he was placed on oxygen via nasal cannula and monitored with continuous pulse oximeter, telemetry, and blood pressure monitoring. A time-out was performed. Then, he was placed in the left lateral decubitus position and medications were administered for sedation. A bite block was placed. The standard EGD scope was inserted through the bite block and advanced under direct visualization to the second portion of the duodenum without difficulty. FINDINGS: 1. Bile stained mucosa was noted throughout the examined portions of the duodenum. 2. In the proximal portion of the second part of the duodenum there was an approximately 8-9 mm polyp. Appearance of the polyp appeared to be inflammatory. Biopsies were not obtained of the polyp. 3. Normal appearing pylorus, antrum and gastric body. Retroflexed views in the gastric body revealed a normal appearing cardia and fundus. 4. Normal appearing GE junction with a regular Z-line. 5. Normal appearing esophagus. IMPRESSION: Polyp in the second portion of the duodenum, otherwise normal exam. No evidence of old or fresh blood seen on exam. RECOMMENDATIONS: 1. Prep for colonoscopy. 2. Refer to a tertiary center for polypectomy of the polyp in the duodenum. COMPLICATIONS: None. ESTIMATED BLOOD LOSS: Zero.
--- NOTE | 2016-06-24 23:32 | PCM.PNMED ---
Subjective Date of Service Jun 24, 2016 Subjective Patient had a brief episode of chest pain during his endoscopy. So is very brief and not described the chest pain very well at the time. When I examined him he had no chest pain whatsoever and endoscopy procedure was completed. She had no chest pain after the procedure. He had no other complaints. Exam Vital Signs Vital Sign - Last Date Time Temp Pulse Resp B/P Pulse Ox O2 Delivery O2 Flow Rate FiO2 06/24/16 21:52 36.8 67 22 97/57 94 Nasal Cannula 2.50 Intake and Output 06/23/16 06/23/16 06/24/16 Cumulative From/Thru 15:00 23:00 07:00 06/22/16 02:32 - 06/24/16 06:38 Intake Total 0 ml 2013 ml 205 ml 4556 ml Output Total 2000 ml Balance 0 ml 2013 ml 205 ml 2556 ml Intake Oral 0 ml 1640 ml 3830 ml IV Total 373 ml 205 ml 726 ml Output Ultrafiltrate 2000 ml # Voids 1 3 # Bowel Movements 0 0 0 Exam General: Patient is in no apparent distress, he was lying comfortably in bed prior to the endoscopy procedure. This prior to the endoscopy procedure he was also very comfortable laying on the gurney. He had no further chest pain. HEENT: Head is atraumatic normocephalic with normal male pattern baldness. Eyes : Pupils are equally round and reactive to light and accommodation. Extraocular muscles are intact. Sclera are white anicteric. Subconjunctival mucosa is pink. Ears and nose are unremarkable. Oropharynx: There is no mucosal lesions, there is no thrush, there is no pharyngitis. Neck: Is supple, there are no nodes, or masses or tenderness. Chest: Is clear to auscultation and percussion. There are no rales, rhonchi, wheezes or rubs. Heart: Rate, rhythm is regular. There is no murmur, rub or gallop. Abdomen: Good bowel sounds are present. Abdomen is obese, soft, nontender, no organomegaly or masses were appreciated. Extremities: Are symmetrical and well perfused. There is no edema, there is no cellulitis, no rash. Neurologic: There are no focal neurological deficits. Cranial nerves II through XII are intact. There are no sensory or motor deficits. Psychiatric: Patients mood is calm and shows no sign of agitation. Genital: Deferred Rectal: Deferred Lab and Diagnostics Result Diagram: 06/24/1693906/24/16939 Microbiology Name: SUDHAKARHEATHER Age/Sex: 65/M Attend Dr: Jl Gimenez Acct: [id number] Unit: [id number] Status: DEP ER Location: SED Re06/21/16 Disch: Specimen: [id number] Collected: 06/21/16 Status: RES Req#: [id number] Received: 06/21/16 Source: BLOOD Sp Desc : AA Subm Dr: Mazin Loaiza DO Ordered: BC Comments: Collected by Nurse/Unit? Y/N Y Comment: ER BED 2 BC Procedure Result Verified Site Microbiology SHARATH CULTURE BLOOD Preliminary 06/22/16-0324 NO GROWTH AFTER 24 HOURS X-Rays, CTs and MRIs PROCEDURE: CT ANGIO CHEST PULMONARY EMBOLISM ([id number]) INDICATIONS: sob, cp, elevated d dimer TECHNIQUE: After the administration of intravenous contrast, 2 mm thick sections acquired from the pulmonary apices to the posterior costophrenic angles. 3-dimensional maximum intensity projection (MIP) coronal and sagittal reformats were then acquired through the thorax. For radiation dose reduction, the following was used: automated exposure control, adjustment of mA and/or kV according to patient size. COMPARISON: [facility], CT, CHEST ANGIO-PE, 03/21/2014, 14:37. FINDINGS: Image quality: Excellent. Pulmonary arteries: Pulmonary arteries are normal in size, and demonstrate no intraluminal filling defects to suggest central pulmonary embolism. Lungs and pleura: Lungs are clear. No pleural effusions or pneumothorax. Central and peripheral airways are patent. Mediastinum: Heart size is normal, without pericardial effusion. No mediastinal or hilar adenopathy. Thoracic aorta is normal in caliber and enhancement. Esophagus is normal in caliber. There is a small hiatal hernia. The distal esophagus is fluid-filled. Bones and chest wall: No suspicious bony lesions. Ribs and thoracic spine appear intact throughout. Thyroid gland is unremarkable. No axillary or supraclavicular adenopathy. Abdomen: Visualized upper abdominal solid organs appear normal in the early arterial phase of enhancement. IMPRESSION: 1. No acute pulmonary embolus. 2. Small hiatal hernia and fluid-filled esophagus. Note: The preliminary [facility] interpretation and the final report are concordan Chest X-ray IMPRESSION: 1. No evidence of pneumonia. 2. Findings suggestive of COPD redemonstrated. Dictated by: Marcelino Vance M.D. on 06/21/2016 at 8:40 Additional Diagnostics FINDINGS: 1. Bile stained mucosa was noted throughout the examined portions of the duodenum. 2. In the proximal portion of the second part of the duodenum there was an approximately 8-9 mm polyp. Appearance of the polyp appeared to be inflammatory. Biopsies were not obtained of the polyp. 3. Normal appearing pylorus, antrum and gastric body. Retroflexed views in the gastric body revealed a normal appearing cardia and fundus. 4. Normal appearing GE junction with a regular Z-line. 5. Normal appearing esophagus. IMPRESSION: Polyp in the second portion of the duodenum, otherwise normal exam. No evidence of old or fresh blood seen on exam. RECOMMENDATIONS: 1. Prep for colonoscopy. 2. Refer to a tertiary center for polypectomy of the polyp in the duodenum. 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 Patient has coffee- ground stool, hematemesis, that started at the same time the nausea and vomiting. #1 Acute blood loss due to upper GI bleed; present on admission; ongoing Patient presents with only a mild decrease in his hematocrit but complained of ongoing hematemesis and melena Patient had previous GI bleed while on anticoagulation at the end of 2014 in and to 2016 with EGD only showing gastritis We will trend H&H GI has been consulted and patient had endoscopy today with findings as follows: "Polyp in the second portion of the duodenum, otherwise normal exam. No evidence of old or fresh blood seen on exam ". We will continue Protonix drip per GI recommendations. Will likely change to either PO or IV twice a day Protonix We will avoid Maalox as this patient also has chronic kidney disease on hemodialysis Patient was not given IV fluids and was taken to hemodialysis yesterday Patient on ondansetron for nausea #2 Chronic kidney disease secondary to hypertensive nephropathy with end-stage renal disease requiring dialysis; present on admission; ongoing Patient cannot remember when the last time he was dialyzed, he is noted to not be the best historian Nephrology was consulted and patient was taken to dialysis Patient hypokalemic, and this has been corrected on hemodialysis yesterday. #3 Uncontrolled diabetes mellitus; present on admission; ongoing Patient presented with a blood glucose over 300 Hgb A1c was 7.3 We will continue patient on 20 units of Lantus and a medium correction scale #4 Acute leukocytosis; present admission; ongoing Patient reports chills but no fever, also a general sense of malaise, and lethargy; on return to the hospital the patient had an elevated white count of 14.5. Today 06/23/2016 the white blood cell count has improved to 12.0 Patient had blood cultures drawn before leaving the ED yesterday morning; we await those results We will hold off on antibiotics at this time as the leukocytosis may be due to acute dehydration from vomiting; currently no fever Due to fever and low blood pressure today will give 5 mL of normal saline We will check blood cultures 2 #5 Chronic hypothyroidism; present on admission; stable Continue home levothyroxine #6 Chronic hyperlipidemia; present on admission; stable Continue home atorvastatin #7 Hypertension, chronic; present admission; stable Continue on home carvedilol 12.5 mg Disposition: Will depend on endoscopy findings and how patient does over the next few days Pain Evaluation: Adequate Pain Control GI Prophylaxis: Proton Pump Inhibitor VTE Prophylaxis: Other (anticoagulation not indicated due to active bleeding.) Resuscitation Status: CPR: Attempt Resuscitation FrankoJl MD Jun 24, 2016 23:32
[2016-06-25] VITALS (15 sets, daily range): BP systolic 94–125; BP diastolic 56–80; PULSE 59–70; RESP 16–24; O2SAT 91–96
--- NOTE | 2016-06-25 05:11 | NUR ---
Back Pain: Pt c/o back pain x1, medication administered. Denied chest pain and SOB. Pt up most of the night, experiencing the effects of go-lightly. Pleasant and cooperative with care.
[2016-06-25 05:54] LABS: BASOPHILS % (AUTO) 0.2 % (0-3); EOSINOPHILS % (AUTO) 1.8 % (0-5); MONOCYTES % (AUTO) 10.2 % (4-12); Mean Corpuscular Hemoglobin 31.1 pg (27.0-35.0); Mean Corpuscular Volume 97.3 fL (81-100); NEUTROPHILS % (AUTO) 81.3 % (40-74); Platelet Count 143 bil/L (150-400)
[2016-06-25] MEDS ORDERED: 0.9% Sodium Chloride 500 ML IV ONE ×2 (06:00→13:29)
[2016-06-25 06:30] LABS: TROPONIN T 0.011 ug/L (0.0-0.011)
[2016-06-25] MEDS: PEG/Electrolytes 4,000 mL Solution PO SCH (06:30)
[2016-06-25 06:48] LABS: Magnesium 1.5 mg/dL (1.6-2.6); Phosphorus 5.3 mg/dL (2.5-4.9)
[2016-06-25] MEDS: Pantoprazole Inj 80 MG in 0.9% Sodium Chloride 80 ML IV SCH ×4 (07:26→23:35)
[2016-06-25] MEDS: Insulin LISPRO 300 Unit/3 mL Inj SUBQ SCH ×4 (07:42→20:50)
[2016-06-25] MEDS ORDERED: Lidocaine PF 1% 30 mL Inj ONE (09:25)
[2016-06-25] MEDS ORDERED: Propofol 10,000 mCg/mL 20 mL Inj ONE (09:25)
[2016-06-25] MEDS ORDERED: 0.9% Sodium Chloride 250 ML IV ONE (09:25)
[2016-06-25] MEDS ORDERED: Magnesium Sulf 2 Gm/50mL Water 2 GM in IV Premix 1 EACH IV ONE (09:25)
[2016-06-25] MEDS ORDERED: Furosemide 10 mg/mL 4 mL Inj IV ONE ×2 (09:25)
--- NOTE | 2016-06-25 11:55 | PCM.PNMED ---
Subjective Date of Service Jun 25, 2016 Subjective Patient is considerably more alert and interactive today compared to yesterday. He is scheduled for a colonoscopy today and will be doing dialysis following this. He denies any chest pain, shortness of breath, cough wheezing nausea or vomiting. Blood pressures have been in the 90-100 range with hemoglobin of 7.0 this morning. His potassium is 3.4 and BUN and creatinine 47 and 2.56. History of his transferrin saturation is 11%. Exam Vital Signs Vital Sign - Last Date Time Temp Pulse Resp B/P Pulse Ox O2 Delivery O2 Flow Rate FiO2 06/25/16 11:41 36.7 59 20 101/61 06/25/16 09:40 Supplement Oxygen 06/25/16 09:08 94 06/24/16 21:52 2.50 Intake and Output 06/24/16 06/24/16 06/25/16 Cumulative From/Thru 15:00 23:00 07:00 06/22/16 02:32 - 06/25/16 05:23 Intake Total 400 ml 1756 ml 307 ml 7019 ml Output Total 2000 ml Balance 400 ml 1756 ml 307 ml 5019 ml Intake Oral 400 ml 1112 ml 5342 ml IV Total 644 ml 307 ml 1677 ml Output Ultrafiltrate 2000 ml # Voids 2 2 7 # Bowel Movements 0 1 1 Exam Neck is supple without adenopathy, thyromegaly, or jugular venous distention. Lungs were clear to auscultation. Heart was regular with a soft systolic murmur. Abdomen soft nontender straight above guarding masses or hepatosplenomegaly. Extremities fluctuance and clubbing cyanosis or edema. There is good and there is no evidence of any rashes. Lab and Diagnostics Result Diagram: 06/25/16 0540 06/25/16 0540 Microbiology Name: HEATHER DE LA FUENTE Age/Sex: 65/M Attend Dr: Jl Gimenez Acct: [id number] Unit: [id number] Status: DEP ER Location: SED Re06/21/16 Disch: Specimen: [id number] Collected: 06/21/16 Status: RES Req#: [id number] Received: 06/21/16 Source: BLOOD Sp Desc : ELIZABETH Youngblood Dr: Mazin Loaiza DO Ordered: BC Comments: Collected by Nurse/Unit? Y/N Y Comment: ER BED 2 BC Procedure Result Verified Site Microbiology SHARATH CULTURE BLOOD Preliminary 06/22/16 NO GROWTH AFTER 24 HOURS X-Rays, CTs and MRIs PROCEDURE: CT ANGIO CHEST PULMONARY EMBOLISM ([id number]) INDICATIONS: sob, cp, elevated d dimer TECHNIQUE: After the administration of intravenous contrast, 2 mm thick sections acquired from the pulmonary apices to the posterior costophrenic angles. 3-dimensional maximum intensity projection (MIP) coronal and sagittal reformats were then acquired through the thorax. For radiation dose reduction, the following was used: automated exposure control, adjustment of mA and/or kV according to patient size. COMPARISON: [facility], CT, CHEST ANGIO-PE, 03/21/2014, 14:37. FINDINGS: Image quality: Excellent. Pulmonary arteries: Pulmonary arteries are normal in size, and demonstrate no intraluminal filling defects to suggest central pulmonary embolism. Lungs and pleura: Lungs are clear. No pleural effusions or pneumothorax. Central and peripheral airways are patent. Mediastinum: Heart size is normal, without pericardial effusion. No mediastinal or hilar adenopathy. Thoracic aorta is normal in caliber and enhancement. Esophagus is normal in caliber. There is a small hiatal hernia. The distal esophagus is fluid-filled. Bones and chest wall: No suspicious bony lesions. Ribs and thoracic spine appear intact throughout. Thyroid gland is unremarkable. No axillary or supraclavicular adenopathy. Abdomen: Visualized upper abdominal solid organs appear normal in the early arterial phase of enhancement. IMPRESSION: 1. No acute pulmonary embolus. 2. Small hiatal hernia and fluid-filled esophagus. Note: The preliminary [facility] interpretation and the final report are concordan Chest X-ray IMPRESSION: 1. No evidence of pneumonia. 2. Findings suggestive of COPD redemonstrated. Dictated by: Marcelino Vance M.D. on 06/21/2016 at 8:40 Additional Diagnostics FINDINGS: 1. Bile stained mucosa was noted throughout the examined portions of the duodenum. 2. In the proximal portion of the second part of the duodenum there was an approximately 8-9 mm polyp. Appearance of the polyp appeared to be inflammatory. Biopsies were not obtained of the polyp. 3. Normal appearing pylorus, antrum and gastric body. Retroflexed views in the gastric body revealed a normal appearing cardia and fundus. 4. Normal appearing GE junction with a regular Z-line. 5. Normal appearing esophagus. IMPRESSION: Polyp in the second portion of the duodenum, otherwise normal exam. No evidence of old or fresh blood seen on exam. RECOMMENDATIONS: 1. Prep for colonoscopy. 2. Refer to a tertiary center for polypectomy of the polyp in the duodenum. Assessment & Plan Impression #1 end-stage renal disease dialysis dependent #2 anemia which is multifactorial #3 iron deficiency Recommendations #1 the patient's be dialyzed today for 4 hours on a 4 potassium bath. The patient has been heparin and give him 100 mg ferrous gluconate. Also attempt to take off 1-2 L as tolerated. GI Prophylaxis: Proton Pump Inhibitor VTE Prophylaxis: Other (anticoagulation not indicated due to active bleeding.) VTE Mechanical Devices: Venous Foot Pump Resuscitation Status: CPR: Attempt Resuscitation Wilson Jimenez DO Jun 25, 2016 11:55
--- NOTE | 2016-06-25 12:28 | NUR ---
off floor pt is transported to have a colonoscopy the to have dialysis. pt left with PRBC running.
--- NOTE | 2016-06-25 12:57 | NUR ---
DC Lasix injections per Dr Jimenez. Extra fluid will be taken off at dialysis.
--- NOTE | 2016-06-25 13:22 | PCM.HPANE ---
Patient Data Date of Service: Jun 25, 2016 Surgeon Admitting Provider:Margaret Cavazos MD Attending Provider:Margaret Cavazos MD Primary Care Physician:Jack LebronAr Carol Other Provider: Reason for Visit Upper Gi Bleed Ht/WT & BMI Height (Feet): 5 Height (Inches): 9.00 Weight (Kilograms): 113.800 Body Mass Index 37.00 Allergies Coded Allergies: No Known Allergies (Verified Allergy, Unknown, 06/21/16) Past Anesthesia History Anesthesia History: Denies:: Abnormal Airway, Anesthesia Reactions, Difficult Intubation, Fam Anesthesia Reaction, Fam Malignant Hypertherm, Malignant Hyperthermia Diabetes History Hx Diabetes?: Yes Current Bedside Blood Glucose: 135 MRSA MRSA: No Medications Blood Thinner: Coumadin Active Scripts Pantoprazole DR (Protonix)40 Mg Kfzzxd66 Mg PO BID #60 TABLET Prov:Jl Gimenez MD 09/19/15 Reported Medications Cholecalciferol (Vitamin D3) (Vitamin D3)1,000 Unit Tab.chew1,000 Unit PO DAILY 06/22/16 Melatonin 1 Mg Tablet1 Mg PO HS 06/22/16 Acetaminophen 500 Mg Tablet1,000 Mg PO Q6H PRN For Pain 07/27/15 oxyCODONE 5 Mg Capsule5 Mg PO Q6-8H PRN For Pain TAKE WITH BREAKFAST AND DINNER 11/23/14 Insulin Glargine (Lantus U100 Insulin Vial)100 Unit/Ml Vial20 Unit SUBQ HS 11/18/13 Atorvastatin Calcium 80 Mg Efgkbe78 Mg PO HS 11/18/13 Furosemide 20 Mg Tab80 Mg PO SuMoWeFr Hold on dialysis days 11/18/13 Insulin Aspart (NovoLOG U-100 Pen)100 Unit/Ml Insuln.pen5-8 Unit SUBQ TID- INSULIN Hold for blood glucose less than 150. 11/17/13 Levothyroxine 200 Mcg Ebthrh086 Mcg PO AM 11/17/13 Citalopram 40 Mg Ouzlze09 Mg PO AM 11/17/13 Carvedilol 12.5 Mg Uwgloc01.5 Mg PO BID tAKE ON FRIDAY, FRIDAY, FRIDAY AND FRIDAY ONLY HOLD ON FRIDAY AND FRIDAY AND Friday11/17/13 Discontinued Reported Medications Sevelamer Carbonate (Renvela)800 Mg Lwvpxu822 Mg PO NOON 11/03/14 Cholecalciferol (Vitamin D3) (Vitamin D3)2,000 Unit Capsule2,000 Unit PO AM 11/17/13 Discontinued Scripts Ondansetron ODT (Zofran ODT)4 Mg Tablet4 Mg PO Q4H PRN For Nausea #14 TABLET Prov:Marcy Diaz MD 06/05/16 Moxifloxacin 400 Mg Klbhgz350 Mg PO DAILY #4 TABLET Prov:Jeff Hernandez MD 11/25/15 Prochlorperazine Maleate (Compazine)10 Mg Vopxtb57 Mg PO TIDAC PRN For Nausea # 20 TABLET Prov:Jl Gimenez MD 10/21/[address] 40 Mg Frolrr87 Mg PO BID #60 Prov:Reggie Dawsno DO 07/29/15 History History of ENT Problems?: Yes HEENT History: Positive for:: Cataracts Denies:: Abnormal Airway Difficult Intubation Dysphagia Glaucoma Hearing Problem Sinus Problem Hx of Heart Problems?: Yes Cardiovascular History: Positive for:: Chest Pain Congestive Heart Failure Edema Hypertension Denies:: AICD Cardiac Surgery Heart Murmur Irregular Heartbeat Pacemaker Thrombophlebitis Valvular Heart Disease Hx of Respiratory Problem?: No Respiratory History: Positive for:: Dyspnea Denies:: Asthma COPD Chest Surgery Emphysema Hemoptysis Pneumonia Tuberculosis Hx Neurologic Problems?: Yes Neurological History: Positive for:: CVA (Memory difficulties, some expressive aphasia, behavior) Dizziness Headaches (uses oxycodone) Denies:: Alzheimer's Disease Dementia Parkinson's Disease Seizures Hx of GI Problems?: Yes Gastrointestinal History: Positive for:: Diverticulitis Gastroesphageal Reflux Gastrointestinal Bleeding Heartburn Rectal Bleeding Denies:: Cirrhosis Hepatitis Hiatal Hernia Hx of Problems?: Yes Genitourinary History: Positive for:: HX of Hemodialysis (Friday, , Friday, right arm fistula) Denies:: Kidney Stones Urinary Tract Infection HX of Peritoneal Dialysis: No Male Hx: Denies:: Prostate Problems Scrotal Mass Testicular Surgery Hx Musculoskeletal Problems?: Yes Musculoskeletal History: Positive for:: Back Injury (herniated disc in low back) Denies:: Joint Replacement Musculoskeletal Trauma Hx of Psycho/Social Problems?: Yes Psycho Social History: Positive for:: Anxiety Hx Depression Denies:: Bipolar Disorder Suicide Attempt Hx Surgeries?: Yes (colostomy and colostomy reversal, Left shoulder dislocation ) Hx Any Other Health Problems?: Yes Other History: Positive for:: Hospitalization (PE, CVA, and surgeries below) Thyroid Disease (hypothyroid) Denies:: Cancer History Blood Transfusions: Positive for:: Accept Blood Products? Blood Transfusions Denies:: Blood Transfuse Reaction Hx Diabetes: YesBedside Blood Glucose: 135 Hx Alcohol Use: NoHx Substance Use: No Smoking Status: Never Smoker Have You Smoked inLast 12 mo: No Stop/Bang Treated for Sleep Apnea?: Yes Do You Have a CPAP Machine?: Yes (Doesn't use it at home.) S-Snoring: Do You Snore Loudly: Yes T-Tired: feel tired, fatigued: No O-Obsered: Observed not breath: No P-Blood Pressure: treated: Yes B- Body Mass Index > 35 kg/m2: Yes A- Age over 50: Yes N- Neck Large Circumference: Yes G- Gender Male: Yes TREMAINE Total Score: 6 TREMAINE Risk Assessment: High Risk, =/>3 Yes TREMAINE Category 2: Yes Risk Assessment Category Category 1A: Patient has history of documented sleep apnea, and HAS NOT received any narcotic, sedative or anesthesia administration during this stay. Category 1B: Patient has history of documented sleep apnea, and HAS received any narcotic , sedative or anesthesia administration during this stay Category 2: Patient has SUSPECTED Obstructive Sleep Apnea, and HAS received any narcotic , sedative or anesthesia administration during this stay. Category 3: Patient has SUSPECTED Obstructive Sleep Apnea and HAS NOT received narcotic, sedative or anesthesia administration during this stay. Category 4: Outpatient in Procedural Areas with known sleep apnea or who screen positive for High Risk via the STOP/BANG questionnaire. High Risk, =/>3 Yes Exam Exam Vital Signs Vital Signs Date Time Temp Pulse Resp B/P Pulse Ox O2 Delivery O2 Flow Rate FiO2 06/25/16 12:00 36.7 59 24 100/58 06/25/16 11:41 36.7 59 20 101/61 06/25/16 09:40 Supplement Oxygen 06/25/16 09:08 36.9 64 20 94/57 94 Room Air 06/25/16 05:31 36.9 67 22 102/60 96 Room Air General Appearance: Cooperative (limited history from patient, discussed with ) HEENT/AIRWAY: MP 2, Neck Movement (OK) Lungs: Clear to Auscultation Heart: Regular Rate/Rhythm, Normal S1, Normal S2 Meds/Labs/Diagnostics Admission Meds Current Medications Sodium Chloride 500 ml @ 0 mls/hr Q0M ONCE IV Last administered on 06/24/16 14 :14; Start 06/24/16 at 14:10; Stop 06/24/16 at 14:11; Status DC Sodium Chloride 1,000 ml @ ud STK-MED ONCE .ROUTE Last administered on 15:20; Start 06/24/16 at 15:05; Stop 06/24/16 at 15:06; Status DC Sodium Chloride 500 ml @ 10 mls/hr Q24H ONCE IV Last administered on 07:26; Start 06/25/16 at 06:00; Stop 06/26/16 at 05:59 Lactated Ringer's (Lr) 1,000 ml @ 120 mls/hr Q8H20M IV Last administered on 16:46; Start 06/24/16 at 15:07; Stop 06/24/16 at 23:06; Status DC Polyethylene Glycol/ Electrolytes 2000 ml 2,000 ml 06,21 PO Last administered on 06/25/16 06:30; Start 06/24/16 at 21:00 Magnesium Sulfate/ Premix (Magnesium Sulf 2 Gm/50mL Water/ IV Premix) 50 ml @ 50 mls/hr ONCE ONCE IV Last administered on 06/25/16 11:18; Start 06/25/16 at 09:25; Stop 06/25/16 at 10:24; Status DC Bedside Blood Glucose: 135 Labs Test 06/22/16 09:41 06/23/16 07:20 06/25/16 05:40 Prothrombin Time 10.5sec (8.1-12.5) Prothromb Time International Ratio 0.98ratio Activated Partial Thromboplast Time 20.0sec (22.8-33.0) Hemoglobin A1c 7.3% (4.8-5.6) Iron Level 21ug/dL (35-150) Total Iron Binding Capacity 193ug/dL (250-450) Percent Iron Saturation 11%sat (15-50) Unsaturated Iron Binding 172.4ug/dL Ferritin 1235ng/mL (30-400) White Blood Count 10.9th/mm3 (3.8-10.1) Red Blood Count 2.25mil/mm3 (4.40-5.80) Hemoglobin 7.0g/dL (13.8-17.2) Hematocrit 21.9% (41.0-50.0) Mean Corpuscular Volume 97.3fL (81-100) Mean Corpuscular Hemoglobin 31.1pg (27.0-35.0) Mean Corpuscular Hemoglobin Concent 32.0% (32.0-37.0) Red Cell Distribution Width 14.8% (12.3-15.4) Platelet Count 143bil/L (150-400) Neutrophils (%) (Auto) 81.3% (40-74) Lymphocytes (%) (Auto) 5.8% (14-46) Monocytes (%) (Auto) 10.2% (4-12) Eosinophils (%) (Auto) 1.8% (0-5) Basophils (%) (Auto) 0.2% (0-3) Sodium Level 134mEq/L (134-144) Potassium Level 3.4mEq/L (3.5-5.2) Chloride Level 93mEq/L (97-108) Carbon Dioxide Level 21mmol/L (18-29) Blood Urea Nitrogen 47mg/dL (8-27) Creatinine 7.56mg/dL (0.76-1.27) Estimat Glomerular Filtration Rate 8mL/min (>59) Glucose Level 135mg/dL (60-99) Calcium Level 7.0mg/dL (8.5-10.1) Phosphorus Level 5.3mg/dL (2.5-4.9) Magnesium Level 1.5mg/dL (1.6-2.6) Total Bilirubin 0.9mg/dL (0.0-1.2) Aspartate Amino Transf (AST/SGOT) 15U/L (0-50) Alanine Aminotransferase (ALT/SGPT) 7U/L (0-44) Alkaline Phosphatase 76U/L (25-160) Troponin T 0.011ug/L (0.0-0.011) Total Protein 4.7g/dL (6.4-8.4) Albumin 2.6g/dL (3.4-5.0) Procalcitonin 0.95ng/mL (See Comment) Plan Impression Patient chart reviewed, patient interviewed and anesthestic plan with risks, benefits, and alternatives discussed, and informed consent obtained. NPO Status: NPO ASA Physical Status: ASA3 Severe Disease Anesthetic Plan: MAC Bene/Risks/Altern/Consents: Yes Other Consent with via phone Jose Alberto Fierro MD Jun 25, 2016 13:22
[2016-06-25] MEDS ORDERED: 0.9% Sodium Chloride 1,000 ML ONE (13:26)
[2016-06-25] MEDS ORDERED: Atropine 0.4 mg/mL Inj IVPUSH PRN (13:30)
--- NOTE | 2016-06-25 14:21 | NUR ---
Social Work-continued d/c planning: Data:EMR reviewed.Pt is on day 3 of hospitalization for upper GI Bleed per H&P. Pt is not medically stable, anticipate several more days. Pt is currently at dialysis. Pt resides at home with and has [facility] caregivers that come in to assist. SW to follow up with pt regarding HH services. SW will continue to follow. Assessment:Pt who may benefit from HH. Plan:Pt to discharge home when medically stable via POV. SW to follow for HH services. SW will continue to follow. DAVID White
--- NOTE | 2016-06-25 14:25 | PCM.ANEP2 ---
Post Anesthesia Evaluation ASA/CMS Post Anesthesia Date of Service: Jun 25, 2016 VS in Patient's Normal Range?: Yes Resp Stable; Airway Patent?: Yes CV Function & Hydration Stable: Yes Mental Status Recovered?: Yes Pain control Satisfactory?: Yes N/V Control Satisfactory?: Yes Jose Alberto Fierro MD Jun 25, 2016 14:25
--- NOTE | 2016-06-25 14:25 | PCM.ANEP1 ---
Post Anesthesia Phase 1 PACU Phase 1 Assessment Date of Service: Jun 25, 2016 Vital Signs Vital Signs Date Time Temp Pulse Resp B/P Pulse Ox O2 Delivery O2 Flow Rate FiO2 06/25/16 14:11 61 108/65 06/25/16 14:03 61 16 99/57 91 Room Air 06/25/16 12:00 36.7 59 24 100/58 06/25/16 11:41 36.7 59 20 101/61 06/25/16 09:40 Supplement Oxygen 06/25/16 09:08 36.9 64 20 94/57 94 Room Air Anesthetic Administered: MAC Level of Alertness: Sleepy, easy to arouse GIORDANO's with Equal Strength: Yes Pain: No (Level 9 - chest) Nausea or Vomiting: No Oxygen Delivery: Room Air Lungs: Normal Air Movement Jose Alberto Fierro MD Jun 25, 2016 14:25
--- NOTE | 2016-06-25 15:08 | NUR ---
NUTRITION ASSESSMENT ASSESS: Pt is a 65yo male admitted for SOB, coughing, and vomiting. Pt presented to [facility] ED w/ nausea and vomiting that he states started two days prior. Pt states being unable to eat or drink d/t N/V. Per previous notes from [place], pt has a history of GI bleed, with diagnosis of gastritis in 2015. Pt underwent endoscopy and is preparing for colonscopy. PMHx: DM Type II, CHF, ESRD on HD, HTN, Hx of strokes (x4), sleep apnea, HLD, Depression, Gout, CVA, restless leg, peripheral neuropathy, headaches, hypothyroid, partial colectomy, ulcers in esophagus and duodenum w/ no bleeding, colonoscopy w/ polypectomy LABS: Alb 2.6, K 3.4, Cl 93, BUN 47, [employer] 7.56, Gluc 135, Ca 7.0, Phos 5.3, Mg 1.5 MEDS: Reglan, Synthroid, Lasix, Lantus, Lipitor, Vit D3 GI: BM x 11 (06/25) SKIN: Reggie 16 WT: 113.8 kg BMI: 37.0 kg/m2 IBW: 70.7 kg DIET: CL x 3 days PO 75-100% EST. NEEDS: BMI 30-40, Renal - HD Kcals: 2617-4013 kcal (22-25 kcal/kg BW) Protein: 85-125g (1.2-1.8 g/kg IBW) NUTRITION DIAGNOSIS: 1) Inadequate oral intake related to altered GI function (N/V and GI bleed) as evidenced by CL diet x 3 days. NUTRITION INTERVENTION: 1) Add Ensure Clear on B&D trays to help ensure adequate kcal and protein intake. 2) Add Gelatein 20 on L tray to help ensure adequate kcal and protein intake. 3) Monitor diet advancement per MD. MONITOR / EVAL: Diet advancement, PO intake, labs, weight, GI, POC. Continue to monitor per moderate nutrition risk guidelines. Addendum: 06/25/16 at [address] Auxiliary student documentation reviewed. I agree with above documentation. Nini Issa, FRANCES, CD
--- NOTE | 2016-06-25 16:21 | ENDO ---
[address] [address] ENDOSCOPY PROCEDURE PATIENT: HEATHER DE LA FUENTE : 1950 MR#: [id number] ADMIT: 06/22/2016 JOB ID: [id number] PROCEDURE: Colonoscopy. INDICATION: Melena. The patient's ASA classification, Mallampati score and medications are as per Dr. Jose Alberto Fierro,'s anesthesia report. INSTRUMENT USED: PCF H 180 AL. PREPARATION QUALITY: Fair. PROCEDURE DETAILS: After informed consent was obtained, the patient was brought into the GI suite, where he was placed on oxygen via nasal cannula and monitored with continuous pulse oximeter, telemetry, and blood pressure monitoring. A time-out was performed, then he was placed in the left lateral decubitus position and medications were administered for sedation. Digital rectal exam was performed which was unremarkable. The colonoscope was then inserted into the rectum and advanced under direct visualization to the cecum, which was identified by the presence of the ileocecal valve and appendiceal orifice. Once the cecum was reached, the colonoscope was withdrawn back into the rectum and mucosa and lumen were examined. In the rectum, retroflexion was performed. Following retroflexion, remaining air in the rectum was suctioned, and procedure was completed. FINDINGS: 1. Bile-stained mucosa and bilious-appearing fluid was noted throughout the entire colon. No old or fresh blood was seen. 2. In the transverse colon, there were three polyps ranging in size from diminutive which was removed with cold biopsy forceps to two other polyp that measured approximately 3 mm and 4 mm that were removed with the cold snare. 3. Scattered diverticula were seen in the sigmoid colon. 4. Retroflexed views in the rectum were unremarkable. IMPRESSION: 1. Three transverse colon polyps. 2. Scattered sigmoid diverticula. Otherwise normal exam. No findings to explain the patient's melanoma or anemia. RECOMMENDATIONS: Continue to follow H and H. If the patient should have melena again, consider capsule endoscopy to further evaluate. COMPLICATIONS: None. ESTIMATED BLOOD LOSS: Less than 5 mL.
--- NOTE | 2016-06-25 19:25 | NUR ---
Dialysis note: S/P endoscopy. 4 hrs tx. 2800 ml total UF (2000 ml net UF + 800 ml for 2 units PRBC). Right upper arm fistula. Pls see DTR for VS details. Qb 500. No heparin given, Citrasate used instead. O2 @ 2L via NC on. Venofer 100 mg IV given by primary RN. 2nd unit PRBC given with no problems. Blood glucose 175 (3pm) and 114 (540pm); tolerated clear liquids. Stable tx. Fistula needle sites clotted w/in 10 min. Report given to Chrissy Lyons RN. Transferred back to patient's room in stable condition.
--- NOTE | 2016-06-25 19:27 | NUR ---
pt on MOC for DIALYSIS from [id number] report received from ENDO RN s/p procedure pt alert, pleasant, and cooperative see manufacturing technologist note, intervention, and or graphic flow for treatment details pt received 2 units PRBC and IV Venofer report returned to SHINE RN ([facility])
[2016-06-25] MEDS: Insulin GLARgine 100 Unit/mL Syringe SUBQ SCH (20:49)
[2016-06-26] VITALS (7 sets, daily range): BP systolic 97–123; BP diastolic 53–65; PULSE 61–68; RESP 18–20; O2SAT 94–97
--- NOTE | 2016-06-26 00:06 | PCM.PNMED ---
Subjective Date of Service Jun 25, 2016 Subjective He was seen after his dialysis run. He is states that he is feeling well. He has no new complaints. Exam Vital Signs Vital Sign - Last Date Time Temp Pulse Resp B/P Pulse Ox O2 Delivery O2 Flow Rate FiO2 06/25/16 20:00 68 06/25/16 19:45 37.0 20 125/80 93 Room Air 06/24/16 21:52 2.50 Intake and Output 06/24/16 06/24/16 06/25/16 Cumulative From/Thru 15:00 23:00 07:00 06/22/16 02:32 - 06/25/16 05:23 Intake Total 400 ml 1756 ml 307 ml 7019 ml Output Total 2000 ml Balance 400 ml 1756 ml 307 ml 5019 ml Intake Oral 400 ml 1112 ml 5342 ml IV Total 644 ml 307 ml 1677 ml Output Ultrafiltrate 2000 ml # Voids 2 2 7 # Bowel Movements 0 1 1 Exam General: Patient is in no apparent distress, he was lying comfortably in bed prior to the endoscopy procedure. This prior to the endoscopy procedure he was also very comfortable laying on the gurney. He had no further chest pain. HEENT: Head is atraumatic normocephalic with normal male pattern baldness. Eyes : Pupils are equally round and reactive to light and accommodation. Extraocular muscles are intact. Sclera are white anicteric. Subconjunctival mucosa is pink. Ears and nose are unremarkable. Oropharynx: There are no mucosal lesions, there is no thrush, there is no pharyngitis. Neck: Is supple, there are no nodes, or masses or tenderness. Chest: Is clear to auscultation and percussion. There are no rales, rhonchi, wheezes or rubs. Heart: Rate, rhythm is regular. There is no murmur, rub or gallop. Abdomen: Good bowel sounds are present. Abdomen is obese, soft, nontender, no organomegaly or masses were appreciated. Extremities: Are symmetrical and well perfused. There is 2+ pitting edema of the lower extremities, which is symmetrical, there is no cellulitis, no rash. Neurologic: There are no focal neurological deficits. Cranial nerves II through XII are intact. There are no sensory or motor deficits. Psychiatric: Patients mood is calm and shows no sign of agitation. Genital: Deferred Rectal: Deferred Lab and Diagnostics Result Diagram: 06/25/1640 06/25/16 0540 Microbiology Name: HEATHER DE LA FUENTE Andreia Age/Sex: 65/M Attend Dr: Jl Gimenez Acct: [id number] Unit: [id number] Status: DEP ER Location: SED Re06/21/16 Disch: Specimen: [id number] Collected: 06/21/16 Status: RES Req#: [id number] Received: 06/21/16 Source: BLOOD Sp Desc : AA Ford Dr: Mazin Loaiza DO Ordered: Comments: Collected by Nurse/Unit? Y/N Y Comment: ER BED 2 BC Procedure Result Verified Site Microbiology SHARATH CULTURE BLOOD Preliminary 06/22/16 NO GROWTH AFTER 24 HOURS X-Rays, CTs and MRIs PROCEDURE: CT ANGIO CHEST PULMONARY EMBOLISM ([id number]) INDICATIONS: sob, cp, elevated d dimer TECHNIQUE: After the administration of intravenous contrast, 2 mm thick sections acquired from the pulmonary apices to the posterior costophrenic angles. 3-dimensional maximum intensity projection (MIP) coronal and sagittal reformats were then acquired through the thorax. For radiation dose reduction, the following was used: automated exposure control, adjustment of mA and/or kV according to patient size. COMPARISON: [facility], CT, CHEST ANGIO-PE, 03/21/2014, 14:37. FINDINGS: Image quality: Excellent. Pulmonary arteries: Pulmonary arteries are normal in size, and demonstrate no intraluminal filling defects to suggest central pulmonary embolism. Lungs and pleura: Lungs are clear. No pleural effusions or pneumothorax. Central and peripheral airways are patent. Mediastinum: Heart size is normal, without pericardial effusion. No mediastinal or hilar adenopathy. Thoracic aorta is normal in caliber and enhancement. Esophagus is normal in caliber. There is a small hiatal hernia. The distal esophagus is fluid-filled. Bones and chest wall: No suspicious bony lesions. Ribs and thoracic spine appear intact throughout. Thyroid gland is unremarkable. No axillary or supraclavicular adenopathy. Abdomen: Visualized upper abdominal solid organs appear normal in the early arterial phase of enhancement. IMPRESSION: 1. No acute pulmonary embolus. 2. Small hiatal hernia and fluid-filled esophagus. Note: [facility] and the final report are concordan Chest X-ray IMPRESSION: 1. No evidence of pneumonia. 2. Findings suggestive of COPD redemonstrated. Dictated by: Marcelino Vance M.D. on 06/21/2016 at 8:40 Additional Diagnostics FINDINGS: 1. Bile stained mucosa was noted throughout the examined portions of the duodenum. 2. In the proximal portion of the second part of the duodenum there was an approximately 8-9 mm polyp. Appearance of the polyp appeared to be inflammatory. Biopsies were not obtained of the polyp. 3. Normal appearing pylorus, antrum and gastric body. Retroflexed views in the gastric body revealed a normal appearing cardia and fundus. 4. Normal appearing GE junction with a regular Z-line. 5. Normal appearing esophagus. IMPRESSION: Polyp in the second portion of the duodenum, otherwise normal exam. No evidence of old or fresh blood seen on exam. RECOMMENDATIONS: 1. Prep for colonoscopy. 2. Refer to a tertiary center for polypectomy of the polyp in the duodenum. 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 Patient has coffee- ground stool, hematemesis, that started at the same time the nausea and vomiting. #1 Acute blood loss due to upper GI bleed; present on admission; ongoing Patient presents with only a mild decrease in his hematocrit but complained of ongoing hematemesis and melena. His hemoglobin and hematocrit dropped to 7.0 and 21.9 today on 06/25/2016. Patient had previous GI bleed while on anticoagulation at the end of 2014 in and to 2016 with EGD only showing gastritis We will trend H&H GI has been consulted and patient had endoscopy today with findings as follows: "Polyp in the second portion of the duodenum, otherwise normal exam. Colonoscopy today revealed 3 polyps which were removed and no evidence of active bleeding. No evidence of old or fresh blood seen on exam ". We will discontinue Protonix drip per GI recommendations. Will likely change to either PO or IV twice a day Protonix We will avoid Maalox as this patient also has chronic kidney disease on hemodialysis Patient was not given IV fluids and was taken to hemodialysis yesterday Patient on ondansetron for nausea We will transfuse 2 units of packed red blood cells while on dialysis. 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 A net of approximately 2 L was removed today. Patient hypokalemic, and this has been corrected on hemodialysis yesterday. #3 Uncontrolled diabetes mellitus; present on admission; ongoing Patient presented with a blood glucose over 300 Hgb A1c was 7.3 We will continue patient on 20 units of Lantus and a medium correction scale #4 Acute leukocytosis; present admission; ongoing slightly improved. Patient reports chills but no fever, also a general sense of malaise, and lethargy; on return to the hospital the patient had an elevated white count of 14.5. Today 06/23/2016 the white blood cell count has improved to 12.0 Patient had blood cultures drawn before leaving the ED yesterday morning; we await those results We will hold off on antibiotics at this time as the leukocytosis may be due to acute dehydration from vomiting; currently no fever Due to fever and low blood pressure today will give 5 mL of normal saline We will check blood cultures 2 #5 Chronic hypothyroidism; present on admission; stable Continue home levothyroxine #6 Chronic hyperlipidemia; present on admission; stable Continue home atorvastatin #7 Hypertension, chronic; present admission; stable Continue on home carvedilol 12.5 mg #8 patient had a very brief episode of chest pain yesterday and EKG and troponins are unremarkable. Patient has had no further chest pain and feels much better after blood transfusion. Disposition: Will depend on endoscopy findings and how patient does over the next few days Pain Evaluation: Adequate Pain Control GI Prophylaxis: Proton Pump Inhibitor VTE Prophylaxis: Other (anticoagulation not indicated due to active bleeding.) VTE Mechanical Devices: Venous Foot Pump Resuscitation Status: CPR: Attempt Resuscitation FrankoJl MD Jun 26, 2016 00:06
--- NOTE | 2016-06-26 04:58 | NUR ---
Noc activity Pt denies chest pain, SOB, N/V and abd discomfort. Altho having mild confusion pt could be re-oriented easily. Pt is currently on RA and has been tolerating well. Will continue to monitor.
[2016-06-26 06:34] LABS: BASOPHILS % (AUTO) 0.5 % (0-3); EOSINOPHILS % (AUTO) 1.9 % (0-5); MONOCYTES % (AUTO) 11.3 % (4-12); Mean Corpuscular Hemoglobin 31.5 pg (27.0-35.0); Mean Corpuscular Volume 94.4 fL (81-100); NEUTROPHILS % (AUTO) 76.5 % (40-74); Platelet Count 175 bil/L (150-400)
[2016-06-26] MEDS: Insulin LISPRO 300 Unit/3 mL Inj SUBQ SCH ×4 (07:53→20:41)
[2016-06-26] MEDS: Pantoprazole 40 mg ER24 Tablet PO SCH ×2 (07:54→16:26)
--- NOTE | 2016-06-26 11:38 | PCM.PNMED ---
Subjective Date of Service Jun 26, 2016 Subjective Patient continues to improve. I have reviewed both the upper and lower endoscopy and with the exception of a duodenal polyp. No obvious sources of bleeding. In light of his history of end-stage renal disease he is at high risk for multiple arteriovenous malformations which may be the cause of visible blood loss. Likely would be a spell occurring hemolytic process and we will go ahead and check a haptoglobin along with LDH today. Exam Vital Signs Vital Sign - Last Date Time Temp Pulse Resp B/P Pulse Ox O2 Delivery O2 Flow Rate FiO2 06/26/16 10:37 67 06/26/16 08:06 37.0 18 120/58 94 Room Air 06/24/16 21:52 2.50 Intake and Output 06/25/16 06/25/16 06/26/16 Cumulative From/Thru 15:00 23:00 07:00 06/22/16 02:32 - 06/26/16 06:41 Intake Total 3200 ml 768 ml 472 ml 61165 ml Output Total 2800 ml 4800 ml Balance 400 ml 768 ml 472 ml 6659 ml Intake Oral 3000 ml 418 ml 472 ml 9232 ml IV Total 200 ml 50 ml 1927 ml Packed Cells 300 ml 300 ml Output Ultrafiltrate 2800 ml 4800 ml # Voids 3 2 2 14 # Bowel Movements 11 3 1 16 Exam HEENT examination is remarkable for pale sclera. Neck supple without adenopathy thyromegaly or jugular vein distention. Lungs are clear to auscultation somewhat diminished. Abdomen is soft and distended but no free fluid wave is noted. Extremities showed some trivial lower extremity edema but otherwise there is no cyanosis clubbing noted. Lab and Diagnostics Result Diagram: 06/26/16 0528 06/26/16 0528 Microbiology Name: HEATHER DE LA FUENTE Age/Sex: 65/M Attend Dr: Jl Gimenez Acct: [id number] Unit: [id number] Status: DEP ER Location: SED Re06/21/16 Disch: Specimen: [id number] Collected: 06/21/16 Status: RES Req#: [id number] Received: 06/21/16 Source: BLOOD Sp Desc : ELIZABETH Youngblood Dr: Mazin Loaiza DO Ordered: BC Comments: Collected by Nurse/Unit? Y/N Y Comment: ER BED 2 BC Procedure Result Verified Site Microbiology SHARATH CULTURE BLOOD Preliminary 06/22/16 NO GROWTH AFTER 24 HOURS X-Rays, CTs and MRIs PROCEDURE: CT ANGIO CHEST PULMONARY EMBOLISM ([id number]) INDICATIONS: sob, cp, elevated d dimer TECHNIQUE: After the administration of intravenous contrast, 2 mm thick sections acquired from the pulmonary apices to the posterior costophrenic angles. 3-dimensional maximum intensity projection (MIP) coronal and sagittal reformats were then acquired through the thorax. For radiation dose reduction, the following was used: automated exposure control, adjustment of mA and/or kV according to patient size. COMPARISON: [facility], CT, CHEST ANGIO-PE, 03/21/2014, 14:37. FINDINGS: Image quality: Excellent. Pulmonary arteries: Pulmonary arteries are normal in size, and demonstrate no intraluminal filling defects to suggest central pulmonary embolism. Lungs and pleura: Lungs are clear. No pleural effusions or pneumothorax. Central and peripheral airways are patent. Mediastinum: Heart size is normal, without pericardial effusion. No mediastinal or hilar adenopathy. Thoracic aorta is normal in caliber and enhancement. Esophagus is normal in caliber. There is a small hiatal hernia. The distal esophagus is fluid-filled. Bones and chest wall: No suspicious bony lesions. Ribs and thoracic spine appear intact throughout. Thyroid gland is unremarkable. No axillary or supraclavicular adenopathy. Abdomen: Visualized upper abdominal solid organs appear normal in the early arterial phase of enhancement. IMPRESSION: 1. No acute pulmonary embolus. 2. Small hiatal hernia and fluid-filled esophagus. Note: The preliminary [facility] interpretation and the final report are concordan Chest X-ray IMPRESSION: 1. No evidence of pneumonia. 2. Findings suggestive of COPD redemonstrated. Dictated by: Marcelino Vance M.D. on 06/21/2016 at 8:40 Additional Diagnostics FINDINGS: 1. Bile stained mucosa was noted throughout the examined portions of the duodenum. 2. In the proximal portion of the second part of the duodenum there was an approximately 8-9 mm polyp. Appearance of the polyp appeared to be inflammatory. Biopsies were not obtained of the polyp. 3. Normal appearing pylorus, antrum and gastric body. Retroflexed views in the gastric body revealed a normal appearing cardia and fundus. 4. Normal appearing GE junction with a regular Z-line. 5. Normal appearing esophagus. IMPRESSION: Polyp in the second portion of the duodenum, otherwise normal exam. No evidence of old or fresh blood seen on exam. RECOMMENDATIONS: 1. Prep for colonoscopy. 2. Refer to a tertiary center for polypectomy of the polyp in the duodenum. Assessment & Plan Impression #1 end-stage renal disease dialysis dependent #2 acute anemia most likely secondary to arteriovenous malformations however we do need to rule out an ongoing hemolytic process #3 hypertension with hypertensive heart disease and hypertensive nephrosclerosis Recommendations #1 would like to get add haptoglobin and LDH today and will make arrangements for his dialysis tomorrow. He should be able to be discharged after dialysis tomorrow. GI Prophylaxis: Proton Pump Inhibitor VTE Prophylaxis: Other (anticoagulation not indicated due to active bleeding.) VTE Mechanical Devices: Venous Foot Pump Resuscitation Status: CPR: Attempt Resuscitation Wilson Jimenez DO Jun 26, 2016 11:38
--- NOTE | 2016-06-26 14:27 | DRSVH ---
PROCEDURE: X-RAY CHEST, TWO VIEWS ([id number]) INDICATIONS: Follow up for possible infiltrate/productive cough TECHNIQUE: 2 views of the chest were acquired. COMPARISON: [facility], CT, CT ABDOMEN PELVIS WO CONTRAST, 06/21/2016, 8:[address] [facility], CT, CT ANGIO CHEST PE, 06/21/2016, 6:19. [facility], CR, XR CHEST 1VW ( PORTABLE), 06/21/2016, 2:11. FINDINGS: Surgical changes and devices: None. Lungs and pleura: No pleural effusions or pneumothorax. Bibasilar airspace opacities present and sm all pleural effusions. Mediastinum: Mediastinal contours are normal. Heart size is normal. Bones and chest wall: No suspicious bony abnormalities. Soft tissues appear unremarkable. IMPRESSION: Bibasilar atelectasis versus aspiration or pneumonia. Correlate correlation. Small effusions. Dictated by: Manuel SNELL Interpreted: Valeri Prado MD on 06/26/2016 at 14:27 Transcribed by: GAMA on 06/26/2016 at 14:27 Approved by: Valeri Prado M.D. on 06/26/2016 at 17:38
--- NOTE | 2016-06-26 19:09 | NUR ---
Problem: Patient is disoriented and doesn't know where he is located or what his name is. Intervention: Reoriented patient to time, place and self via verbal communication. Evaluation: Patient has a history of CVA x4 and is not likely to have an increase in short term memory. Patient forgot who he was and where he is before lunch.
[2016-06-26] MEDS: Insulin GLARgine 100 Unit/mL Syringe SUBQ SCH (20:37)
--- NOTE | 2016-06-26 22:10 | PCM.PNMED ---
Subjective Date of Service Jun 26, 2016 Subjective Patient is sitting up in the bedside chair eating lunch. He has no new complaints. He feels better today. Exam Vital Signs Vital Sign - Last Date Time Temp Pulse Resp B/P Pulse Ox O2 Delivery O2 Flow Rate FiO2 06/26/16 21:18 37.1 64 18 123/63 97 Room Air 06/24/16 21:52 2.50 Intake and Output 06/25/16 06/25/16 06/26/16 Cumulative From/Thru 15:00 23:00 07:00 06/22/16 02:32 - 06/26/16 06:41 Intake Total 3200 ml 768 ml 472 ml 64731 ml Output Total 2800 ml 4800 ml Balance 400 ml 768 ml 472 ml 6659 ml Intake Oral 3000 ml 418 ml 472 ml 9232 ml IV Total 200 ml 50 ml 1927 ml Packed Cells 300 ml 300 ml Ultrafiltrate 2800 ml 4800 ml # Voids 3 2 2 14 # Bowel Movements 11 3 1 16 Exam General: Patient is in no apparent distress. He has no chest pain. He has a very good appetite. HEENT: Head is atraumatic normocephalic with normal male pattern baldness. Eyes : Pupils are equally round and reactive to light and accommodation. Extraocular muscles are intact. Sclera are white anicteric. Subconjunctival mucosa is pink. Ears and nose are unremarkable. Oropharynx: There are no mucosal lesions, there is no thrush, there is no pharyngitis. Neck: Is supple, there are no nodes, or masses or tenderness. Chest: Is clear to auscultation and percussion. There are no rales, rhonchi, wheezes or rubs. Heart: Rate, rhythm is regular. There is no new murmur, rub or gallop. Abdomen: Good bowel sounds are present. Abdomen is obese, soft, nontender, no organomegaly or masses were appreciated. Extremities: Are symmetrical and well perfused. There is 2+ pitting edema of the lower extremities, which is symmetrical, there is no cellulitis, no rash. Neurologic: There are no focal neurological deficits. Cranial nerves II through XII are intact. There are no sensory or motor deficits. Psychiatric: Patients mood is calm and shows no sign of agitation. Genital: Deferred Rectal: Deferred Lab and Diagnostics Result Diagram: 06/26/1652706/26/1628 Microbiology Name: HEATHER DE LA FUENTE Age/Sex: 65/M Attend Dr: Jl Gimenez Acct: [id number] Unit: [id number] Status: DEP ER Location: SED Re06/21/16 Disch: Specimen: [id number] Collected: 06/21/16 Status: RES Req#: [id number] Received: 06/21/16 Source: BLOOD Sp Desc : ELIZABETH Youngblood Dr: Mazin Loaiza DO Ordered: BC Comments: Collected by Nurse/Unit? Y/N Y Comment: ER BED 2 BC Procedure Result Verified Site Microbiology SHARATH CULTURE BLOOD Preliminary 06/22/16-0324 NO GROWTH AFTER 24 HOURS X-Rays, CTs and MRIs PROCEDURE: CT ANGIO CHEST PULMONARY EMBOLISM ([id number]) INDICATIONS: sob, cp, elevated d dimer TECHNIQUE: After the administration of intravenous contrast, 2 mm thick sections acquired from the pulmonary apices to the posterior costophrenic angles. 3-dimensional maximum intensity projection (MIP) coronal and sagittal reformats were then acquired through the thorax. For radiation dose reduction, the following was used: automated exposure control, adjustment of mA and/or kV according to patient size. COMPARISON: [facility], CT, CHEST ANGIO-PE, 03/21/2014, 14:37. FINDINGS: Image quality: Excellent. Pulmonary arteries: Pulmonary arteries are normal in size, and demonstrate no intraluminal filling defects to suggest central pulmonary embolism. Lungs and pleura: Lungs are clear. No pleural effusions or pneumothorax. Central and peripheral airways are patent. Mediastinum: Heart size is normal, without pericardial effusion. No mediastinal or hilar adenopathy. Thoracic aorta is normal in caliber and enhancement. Esophagus is normal in caliber. There is a small hiatal hernia. The distal esophagus is fluid-filled. Bones and chest wall: No suspicious bony lesions. Ribs and thoracic spine appear intact throughout. Thyroid gland is unremarkable. No axillary or supraclavicular adenopathy. Abdomen: Visualized upper abdominal solid organs appear normal in the early arterial phase of enhancement. IMPRESSION: 1. No acute pulmonary embolus. 2. Small hiatal hernia and fluid-filled esophagus. Note: The preliminary [facility] interpretation and the final report are concordan Chest X-ray IMPRESSION: 1. No evidence of pneumonia. 2. Findings suggestive of COPD redemonstrated. Dictated by: Marcelino Vance M.D. on 06/21/2016 at 8:40 Additional Diagnostics FINDINGS: 1. Bile stained mucosa was noted throughout the examined portions of the duodenum. 2. In the proximal portion of the second part of the duodenum there was an approximately 8-9 mm polyp. Appearance of the polyp appeared to be inflammatory. Biopsies were not obtained of the polyp. 3. Normal appearing pylorus, antrum and gastric body. Retroflexed views in the gastric body revealed a normal appearing cardia and fundus. 4. Normal appearing GE junction with a regular Z-line. 5. Normal appearing esophagus. IMPRESSION: Polyp in the second portion of the duodenum, otherwise normal exam. No evidence of old or fresh blood seen on exam. RECOMMENDATIONS: 1. Prep for colonoscopy. 2. Refer to a tertiary center for polypectomy of the polyp in the duodenum. 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 Patient has coffee- ground stool, hematemesis, that started at the same time the nausea and vomiting. #1 Acute blood loss due to upper GI bleed; present on admission; ongoing, patient received 2 units of packed red blood cells yesterday during hemodialysis Patient presents with only a mild decrease in his hematocrit but complained of ongoing hematemesis and melena. His hemoglobin and hematocrit dropped to 7.0 and 21.9 on 06/25/2016. Patient had previous GI bleed while on anticoagulation at the end of 2014 in and to 2016 with EGD only showing gastritis. We will trend H&H GI has been consulted and patient had endoscopy today with findings as follows: "Polyp in the second portion of the duodenum, otherwise normal exam. Colonoscopy today revealed 3 polyps which were removed and no evidence of active bleeding. No evidence of old or fresh blood seen on exam ". We have discontinued Protonix drip. Will likely change to either PO twice a day Protonix We will avoid Maalox as this patient also has chronic kidney disease on hemodialysis Patient was not given IV fluids and was taken to hemodialysis yesterday Patient on ondansetron for nausea We will transfuse 2 units of packed red blood cells while on dialysis. 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 A net of approximately 2 L was removed today. Patient hypokalemic, and this has been corrected on hemodialysis yesterday. #3 Uncontrolled diabetes mellitus; present on admission; ongoing Patient presented with a blood glucose over 300 Hgb A1c was 7.3 We will continue patient on 20 units of Lantus and a medium correction scale #4 Acute leukocytosis; present admission; ongoing slightly improved. Patient reports chills but no fever, also a general sense of malaise, and lethargy; on return to the hospital the patient had an elevated white count of 14.5. Today 06/23/2016 the white blood cell count has improved to 12.0 Patient had blood cultures drawn before leaving the ED yesterday morning; we await those results We will hold off on antibiotics at this time as the leukocytosis may be due to acute dehydration from vomiting; currently no fever Due to fever and low blood pressure today will give 5 mL of normal saline We will check blood cultures 2 #5 Chronic hypothyroidism; present on admission; stable Continue home levothyroxine #6 Chronic hyperlipidemia; present on admission; stable Continue home atorvastatin #7 Hypertension, chronic; present admission; stable Continue on home carvedilol 12.5 mg #8 patient had a very brief episode of chest pain yesterday and EKG and troponins are unremarkable. Patient has had no further chest pain and feels much better after blood transfusion. Disposition: Will depend on endoscopy findings and how patient does over the next few days Pain Evaluation: Adequate Pain Control GI Prophylaxis: Proton Pump Inhibitor VTE Prophylaxis: Other (anticoagulation not indicated due to active bleeding.) VTE Mechanical Devices: Venous Foot Pump Resuscitation Status: CPR: Attempt Resuscitation Jl Abdul MD Jun 26, 2016 22:10
[2016-06-27] VITALS (8 sets, daily range): BP systolic 100–129; BP diastolic 55–74; PULSE 59–74; RESP 18–20; O2SAT 92–98
[2016-06-27 06:25] LABS: BASOPHILS % (AUTO) 0.2 % (0-3); EOSINOPHILS % (AUTO) 1.8 % (0-5); MONOCYTES % (AUTO) 12.2 % (4-12); Mean Corpuscular Hemoglobin 31.4 pg (27.0-35.0); Mean Corpuscular Volume 95.6 fL (81-100); NEUTROPHILS % (AUTO) 76.2 % (40-74); Platelet Count 213 bil/L (150-400)
[2016-06-27] MEDS: Pantoprazole 40 mg ER24 Tablet PO SCH ×2 (08:05→17:12)
[2016-06-27] MEDS: Insulin LISPRO 300 Unit/3 mL Inj SUBQ SCH ×4 (08:06→20:26)
--- NOTE | 2016-06-27 11:43 | NUR ---
Social Work: Readiness for d/c Data: Pt is on day 5 of hospitalization. EMR reviewed, pt discussed in rounds. MD states pt likely ready for d/c today or tomorrow. POWERHOUSE ELECTRICIAN called pt's regarding HH choice, she states that she feels pt needs a SNF stay. She also shared that she learned on 06/26 that she may have lung cancer, but has not yet told pt. She is worried that she can no longer care for pt at home. POWERHOUSE ELECTRICIAN let pt's spouse know that she will call MD to see if PT can see pt today and that she will follow up with her later in the day. POWERHOUSE ELECTRICIAN spoke with MD who states that pt will likely not be ready for d/c today and he will order PT for pt. POWERHOUSE ELECTRICIAN will continue to follow. Assessment: Pt who is independent at baseline. Plan: Pt will either d/c home via POV with HH or to SNF when medically stable, likely tomorrow. POWERHOUSE ELECTRICIAN awaiting PT to see pt. POWERHOUSE ELECTRICIAN will continue to follow. DAVID Inman
--- NOTE | 2016-06-27 13:25 | PATH ---
SURGICAL PATHOLOGY Attending Physician:Nicole Al CASE STATUS: Signed Out PATIENT NAME: HEATHER DE LA FUENTE PID: [id number] : 1950 DATE COLLECTED:06/25/2016 00:00 SPECIMEN: Colon, Biopsy CLINICAL HISTORY: A: TRANSVERSE COLON POLYP FINAL DIAGNOSIS: 1.TRANSVERSE COLON, POLYP, BIOPSY: INFLAMMATORY PSEUDOPOLYP. NEGATIVE FOR DYSPLASIA AND MALIGNANCY. ICD10 CODE K63.5 GROSS DESCRIPTION: The specimen is received in one formalin filled container labeled with the patient's name, sublabeled "transverse colon polyp" and consists of multiple portions of tissue which aggregate to 0.4 x 0.4 x 0.3 CM. The specimen is entirely submitted in one cassette. 06/26/2016 [facility] MICRO DESCRIPTION: See diagnosis. ICD-9 CODES: CPT CODES: 1: 62993 Electronically Signed Out Nunu Rand MD [facility] [address], [place] [address] Technical component performed at [facility], [facility] [address], [place], [address]
--- NOTE | 2016-06-27 13:55 | NUR ---
Dialysis note: 4 hrs tx. 2000 ml net UF. Right upper arm fistula. Pls see DTR for VS details. Qb 400-500. No heparin given, Citrasate used instead. O2 @ 2L via NC on. Stable tx. Fistula needle sites clotted w/in 10 min. Report given to George Barboza RN. Transferred back to patient's room in stable condition.
--- NOTE | 2016-06-27 14:32 | NUR ---
MOC/Dialysis Patient completed dialysis treatment. V/S stable per dialysis nurse. CBG monitored with no coverage needed. Patient transferred back to [facility].
--- NOTE | 2016-06-27 15:19 | PCM.PNMED ---
Subjective Date of Service Jun 27, 2016 Subjective Patient continues to do well today. He was seen in dialysis and continues to have an improvement in his mental status change. His 40s hemoglobin was 9.9. New complaints and denies any chest pain, shortness of breath, vomiting, or diarrhea. Exam Vital Signs Vital Sign - Last Date Time Temp Pulse Resp B/P Pulse Ox O2 Delivery O2 Flow Rate FiO2 06/27/16 14:28 36.9 74 20 122/74 92 Room Air 06/24/16 21:52 2.50 Intake and Output 06/26/16 06/26/16 06/27/16 Cumulative From/Thru 14:59 22:59 06:59 06/22/16 02:32 - 06/27/16 06:46 Intake Total 2154 ml 400 ml 72207 ml Output Total 500 ml 5300 ml Balance 1654 ml 400 ml 8713 ml Intake Oral 2154 ml 400 ml 33897 ml IV Total 1927 ml Packed Cells 300 ml Output Stool Total 500 ml 500 ml Ultrafiltrate 4800 ml # Voids 1 15 # Bowel Movements 4 20 Exam Neck is supple without adenopathy thyromegaly or jugular venous distention. Lungs are clear to auscultation O somewhat diminished bilaterally. Heart is regular and rhythmical with a soft systolic murmur. Abdomen is soft without any tenderness rebound guarding masses or hepatosplenomegaly. Extremities show us and clubbing cyanosis or edema. Lab and Diagnostics Result Diagram: 06/27/16 0535 06/27/16 0535 Microbiology Name: HEATHER DE LA FUENTE Age/Sex: 65/M Attend Dr: Jl Gimenez Acct: [id number] Unit: [id number] Status: [facility] Location: SED Re06/21/16 Disch: Specimen: [id number] Collected: 06/21/16 Status: RES Req#: [id number] Received: 06/21/16 Source: BLOOD Sp Desc : AA Ford Dr: Mazin Loaiza DO Ordered: BC Comments: Collected by Nurse/Unit? Y/N Y Comment: ER BED 2 BC Procedure Result Verified Site Microbiology SHARATH CULTURE BLOOD Preliminary 06/22/16 NO GROWTH AFTER 24 HOURS X-Rays, CTs and MRIs PROCEDURE: CT ANGIO CHEST PULMONARY EMBOLISM ([id number]) INDICATIONS: sob, cp, elevated d dimer TECHNIQUE: After the administration of intravenous contrast, 2 mm thick sections acquired from the pulmonary apices to the posterior costophrenic angles. 3-dimensional maximum intensity projection (MIP) coronal and sagittal reformats were then acquired through the thorax. For radiation dose reduction, the following was used: automated exposure control, adjustment of mA and/or kV according to patient size. COMPARISON: [facility], CT, CHEST ANGIO-PE, 03/21/2014, 14:37. FINDINGS: Image quality: Excellent. Pulmonary arteries: Pulmonary arteries are normal in size, and demonstrate no intraluminal filling defects to suggest central pulmonary embolism. Lungs and pleura: Lungs are clear. No pleural effusions or pneumothorax. Central and peripheral airways are patent. Mediastinum: Heart size is normal, without pericardial effusion. No mediastinal or hilar adenopathy. Thoracic aorta is normal in caliber and enhancement. Esophagus is normal in caliber. There is a small hiatal hernia. The distal esophagus is fluid-filled. Bones and chest wall: No suspicious bony lesions. Ribs and thoracic spine appear intact throughout. Thyroid gland is unremarkable. No axillary or supraclavicular adenopathy. Abdomen: Visualized upper abdominal solid organs appear normal in the early arterial phase of enhancement. IMPRESSION: 1. No acute pulmonary embolus. 2. Small hiatal hernia and fluid-filled esophagus. Note: The preliminary [facility] interpretation and the final report are concordan Chest X-ray IMPRESSION: 1. No evidence of pneumonia. 2. Findings suggestive of COPD redemonstrated. Dictated by: Marcelino Vance M.D. on 06/21/2016 at 8:40 Additional Diagnostics FINDINGS: 1. Bile stained mucosa was noted throughout the examined portions of the duodenum. 2. In the proximal portion of the second part of the duodenum there was an approximately 8-9 mm polyp. Appearance of the polyp appeared to be inflammatory. Biopsies were not obtained of the polyp. 3. Normal appearing pylorus, antrum and gastric body. Retroflexed views in the gastric body revealed a normal appearing cardia and fundus. 4. Normal appearing GE junction with a regular Z-line. 5. Normal appearing esophagus. IMPRESSION: Polyp in the second portion of the duodenum, otherwise normal exam. No evidence of old or fresh blood seen on exam. RECOMMENDATIONS: 1. Prep for colonoscopy. 2. Refer to a tertiary center for polypectomy of the polyp in the duodenum. Assessment & Plan Impression #1 end-stage renal disease dialysis dependent #2 of her GI bleed which appears to be stable #3 hypertension with hypertensive heart disease and hypertensive nephrosclerosis Recommendations #1 patient stylet been dialyzed today for 4 hours on S3K bath. was given and approximately 2 kg was removed. GI Prophylaxis: Proton Pump Inhibitor VTE Prophylaxis: Other (anticoagulation not indicated due to active bleeding.) VTE Mechanical Devices: Venous Foot Pump Resuscitation Status: CPR: Attempt Resuscitation Wilson Jimenez DO Jun 27, 2016 15:19
--- NOTE | 2016-06-27 16:45 | PCM.PNMED ---
Subjective Date of Service Jun 27, 2016 Subjective Patient seen, no complaints overnight received dialysis today denies chest pain or shortness of breath or nausea or vomiting/fever. Exam Vital Signs Vital Sign - Last Date Time Temp Pulse Resp B/P Pulse Ox O2 Delivery O2 Flow Rate FiO2 06/27/16 14:28 36.9 74 20 122/74 92 Room Air 06/24/16 21:52 2.50 Intake and Output 06/26/16 06/26/16 06/27/16 Cumulative From/Thru 15:00 23:00 07:00 06/22/16 02:32 - 06/27/16 06:46 Intake Total 2154 ml 400 ml 50828 ml Output Total 500 ml 5300 ml Balance 1654 ml 400 ml 8713 ml Intake Oral 2154 ml 400 ml 66449 ml IV Total 1927 ml Packed Cells 300 ml Output Stool Total 500 ml 500 ml Ultrafiltrate 4800 ml # Voids 1 15 # Bowel Movements 4 20 Exam General: Patient is in no apparent distress. HEENT: Head is atraumatic normocephalic with normal male pattern baldness. Eyes : Pupils are equally round and reactive to light and accommodation. Extraocular muscles are intact. Sclera are white anicteric. Subconjunctival mucosa is pink. Ears and nose are unremarkable. Oropharynx: There are no mucosal lesions, there is no thrush, there is no pharyngitis. Neck: Is supple, there are no nodes, or masses or tenderness. Chest: Is clear to auscultation and percussion. There are no rales, rhonchi, wheezes or rubs. Heart: Rate, rhythm is regular. There is no new murmur, rub or gallop. Abdomen: Good bowel sounds are present. Abdomen is obese, soft, nontender, no organomegaly or masses were appreciated. Extremities: Are symmetrical and well perfused. There is 2+ pitting edema of the lower extremities, which is symmetrical, there is no cellulitis, no rash. Neurologic: There are no focal neurological deficits. Cranial nerves II through XII are intact. There are no sensory or motor deficits. Psychiatric: Patients mood is calm and shows no sign of agitation. IVs and Medications Medications Reviewed: Medications were reviewed in detail Lab and Diagnostics Result Diagram: 06/27/16 0535 06/27/16 0535 Microbiology Name: HEATHER DE LA FUENTE Age/Sex: 65/M Attend Dr: Jl Gimenez Acct: [id number] Unit: [id number] Status: DEP ER Location: SED Re06/21/16 Disch: Specimen: [id number] Collected: 06/21/16 Status: RES Req#: [id number] Received: 06/21/16 Source: BLOOD Sp Desc : ELIZABETH Youngblood Dr: Mazin Loaiza DO Ordered: BC Comments: Collected by Nurse/Unit? Y/N Y Comment: ER BED 2 BC Procedure Result Verified Site Microbiology SHARATH CULTURE BLOOD Preliminary 06/22/16-0324 NO GROWTH AFTER 24 HOURS X-Rays, CTs and MRIs PROCEDURE: CT ANGIO CHEST PULMONARY EMBOLISM ([id number]) INDICATIONS: sob, cp, elevated d dimer TECHNIQUE: After the administration of intravenous contrast, 2 mm thick sections acquired from the pulmonary apices to the posterior costophrenic angles. 3-dimensional maximum intensity projection (MIP) coronal and sagittal reformats were then acquired through the thorax. For radiation dose reduction, the following was used: automated exposure control, adjustment of mA and/or kV according to patient size. COMPARISON: [facility], CT, CHEST ANGIO-PE, 03/21/2014, 14:37. FINDINGS: Image quality: Excellent. Pulmonary arteries: Pulmonary arteries are normal in size, and demonstrate no intraluminal filling defects to suggest central pulmonary embolism. Lungs and pleura: Lungs are clear. No pleural effusions or pneumothorax. Central and peripheral airways are patent. Mediastinum: Heart size is normal, without pericardial effusion. No mediastinal or hilar adenopathy. Thoracic aorta is normal in caliber and enhancement. Esophagus is normal in caliber. There is a small hiatal hernia. The distal esophagus is fluid-filled. Bones and chest wall: No suspicious bony lesions. Ribs and thoracic spine appear intact throughout. Thyroid gland is unremarkable. No axillary or supraclavicular adenopathy. Abdomen: Visualized upper abdominal solid organs appear normal in the early arterial phase of enhancement. IMPRESSION: 1. No acute pulmonary embolus. 2. Small hiatal hernia and fluid-filled esophagus. Note: The preliminary [facility] interpretation and the final report are concordan Chest X-ray IMPRESSION: 1. No evidence of pneumonia. 2. Findings suggestive of COPD redemonstrated. Dictated by: Marcelino Vance M.D. on 06/21/2016 at 8:40 Additional Diagnostics FINDINGS: 1. Bile stained mucosa was noted throughout the examined portions of the duodenum. 2. In the proximal portion of the second part of the duodenum there was an approximately 8-9 mm polyp. Appearance of the polyp appeared to be inflammatory. Biopsies were not obtained of the polyp. 3. Normal appearing pylorus, antrum and gastric body. Retroflexed views in the gastric body revealed a normal appearing cardia and fundus. 4. Normal appearing GE junction with a regular Z-line. 5. Normal appearing esophagus. IMPRESSION: Polyp in the second portion of the duodenum, otherwise normal exam. No evidence of old or fresh blood seen on exam. RECOMMENDATIONS: 1. Prep for colonoscopy. 2. Refer to a tertiary center for polypectomy of the polyp in the duodenum. 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 Patient has coffee- ground stool, hematemesis, that started at the same time the nausea and vomiting. #1 Acute blood loss due to upper GI bleed; present on admission; ongoing, patient received 2 units of packed red blood cells yesterday during hemodialysis Patient presents with only a mild decrease in his hematocrit but complained of ongoing hematemesis and melena. His hemoglobin and hematocrit dropped to 7.0 and 21.9 on 06/25/2016. Patient had previous GI bleed while on anticoagulation at the end of 2014 in and to 2016 with EGD only showing gastritis. H&H. Appear to be stable GI has been consulted and patient had endoscopy with findings as follows: " Polyp in the second portion of the duodenum, otherwise normal exam. Colonoscopy today revealed 3 polyps which were removed and no evidence of active bleeding. No evidence of old or fresh blood seen on exam ". Patient had a tiny strip discontinued. Continuing by mouth Protonix We will avoid Maalox as this patient also has chronic kidney disease on hemodialysis Patient on ondansetron for nausea Patient is status post transfusion 2 units of packed red blood cells while on dialysis. 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 A net of approximately 2 L was removed today. Patient hypokalemic, and this has been corrected on hemodialysis yesterday. #3 Uncontrolled diabetes mellitus; present on admission; ongoing Patient presented with a blood glucose over 300 Hgb A1c was 7.3 We will continue patient on 20 units of Lantus and a medium correction scale #4 Acute leukocytosis; present admission; ongoing slightly improved. Patient reports chills but no fever, also a general sense of malaise, and lethargy; on return to the hospital the patient had an elevated white count of 14.5. Today 06/23/2016 the white blood cell count has improved to 12.0 Patient had blood cultures drawn before leaving the ED yesterday morning; we await those results We will hold off on antibiotics at this time as the leukocytosis may be due to acute dehydration from vomiting; currently no fever Due to fever and low blood pressure today will give 5 mL of normal saline We will check blood cultures 2 #5 Chronic hypothyroidism; present on admission; stable Continue home levothyroxine #6 Chronic hyperlipidemia; present on admission; stable Continue home atorvastatin #7 Hypertension, chronic; present admission; stable Continue on home carvedilol 12.5 mg #8 patient had a very brief episode of chest pain yesterday and EKG and troponins are unremarkable. Patient has had no further chest pain and feels much better after blood transfusion. Disposition: Patient will plan on follow-up with GI when appropriate for discharge. Discharge will be pending clinical progress and stability of H&H, along with physical therapy evaluation. Pain Evaluation: Adequate Pain Control GI Prophylaxis: Proton Pump Inhibitor VTE Prophylaxis: Other (anticoagulation not indicated due to active bleeding.) VTE Mechanical Devices: Venous Foot Pump Resuscitation Status: CPR: Attempt Resuscitation Time spent 40 minutes spent with evaluation and management Juve Mao DO Jun 27, 2016 16:45
[2016-06-27] MEDS: Insulin GLARgine 100 Unit/mL Syringe SUBQ SCH (20:25)
[2016-06-28 00:58] VITALS: BP 103/55; PULSE 65; RESP 20; O2SAT 98
[2016-06-28 06:30] VITALS: BP 121/69; PULSE 65; RESP 20; O2SAT 96
[2016-06-28 07:16] LABS: BASOPHILS % (AUTO) 0.7 % (0-3); EOSINOPHILS % (AUTO) 2.9 % (0-5); MONOCYTES % (AUTO) 11.3 % (4-12); Mean Corpuscular Volume 94.6 fL (81-100); Platelet Count 219 bil/L (150-400)
[2016-06-28 08:00] VITALS: PULSE 64
[2016-06-28] MEDS: Insulin LISPRO 300 Unit/3 mL Inj SUBQ SCH ×2 (08:10→11:36)
[2016-06-28] MEDS: Pantoprazole 40 mg ER24 Tablet PO SCH (09:14)
--- NOTE | 2016-06-28 10:29 | NUR ---
NUTRITION FOLLOW-UP: ASSESS: Pt is a 65yo male admitted for SOB, coughing, and vomiting. Pt had been experiencing N/V for multiple days prior to admit. N/V has resolved. He is currently on dialysis with nephrology following. Pt is on a Renal diet and receiving Nepro nutrition supplement at . PO has been good at 75-100% PMHx: DM Type II, CHF, ESRD on HD, HTN, Hx of strokes (x4), sleep apnea, HLD, Depression, Gout, CVA, restless leg, peripheral neuropathy, headaches, hypothyroid, partial colectomy, ulcers in esophagus and duodenum w/ no bleeding, colonoscopy w/ polypectomy LABS: Reviewed. K 3.4, Cl 95, Thoracic Surgeon 3.95, Gly 154, Ca 7.5, Alb 2.8 MEDS: Reviewed. Lasix, Lantus , Vit D3 GI: BM x 5 (06/26) SKIN: Reggie 19 WT: 112.8 kg BMI: 36.7 kg/m2 IBW: 72kg, admit wt 113.8 DIET: Renal, PO 75-100% EST. NEEDS: BMI, HD Kcals: 0239-1417 kcal (22-25 kcal/kg BW) Protein: 85-125g (1.2-1.8 g/kg IBW) NUTRITION DIAGNOSIS: 1) Inadequate oral intake related to altered GI function (N/V and GI bleed) as evidenced by CL diet x 3 days.--RESOLVED 2) Increased nutrient needs related to increased demand for nutrients as evidence by pt on HD NUTRITION INTERVENTION: 1) Continue current diet and supplement of Nepro on tray MONITOR / EVAL: PO intake, labs, weight, GI, POC. Continue to monitor per moderate nutrition risk guidelines.
[2016-06-28 10:53] VITALS: BP 114/73; PULSE 67; RESP 20; O2SAT 95
--- NOTE | 2016-06-28 11:24 | NUR ---
Social Work: Readiness for d/c Data: Pt is on day 6 of hospitalization. EMR reviewed. PT recommending SNF at this time. DEPARTMENT CLINICIAN spoke with pt and explained the benefits of SNF. Pt is declining at this time. DEPARTMENT CLINICIAN explained HH to pt and he was reluctantly agreeable to this. DEPARTMENT CLINICIAN asked if pt has talked with his about her ability to care for him at home and he said no. DEPARTMENT CLINICIAN asked pt about which HH he prefers, pt states no preference after accepting SNF/HH choice list. DEPARTMENT CLINICIAN referred to rotating calendar and referred pt to [facility] HUNTLEY for RN/PT/OT/DEPARTMENT CLINICIAN. DEPARTMENT CLINICIAN called pt's spouse who states that she has not yet told her spouse about her health situation and that she feels that she may not be able to care for all of pt's needs. DEPARTMENT CLINICIAN stated that a Senior Resource book would be left in pt's room for her to review regarding private pay caregiving. Pt's spouse states that she is not interested in this right now and that private caregivers would interrupt their routine. DEPARTMENT CLINICIAN encouraged her to consider this option and to also utilize all of the [facility] caregiving hours. DEPARTMENT CLINICIAN explained HH to pt's spouse, she stated the same thing about private pay caregivers interrupting their lives, but she was agreeable to this. Pt's spouse states she will be in this afternoon to meet with pt and talk about SNF. DEPARTMENT CLINICIAN reminded her that right now the d/c plan moving forward is for pt to go home with her today with [facility] HUNTLEY and that if she is able to change pt's mind, we can at that time refer pt to SNF. DEPARTMENT CLINICIAN will continue to follow. Assessment: Pt in wheelchair with some caregiving by spouse at baseline. Has [facility]. Plan: Pt will d/c home via POV with spouse today with [facility] HUNTLEY, RN/PT/OT/DEPARTMENT CLINICIAN. Pt's spouse speaking further with pt about SNF. DEPARTMENT CLINICIAN will continue to follow if needs arise. DAVID Inman
--- NOTE | 2016-06-28 12:02 | NUR ---
Evaluation completed. Please go to "Notes" then click on "Assessments and Notes" (bottom left corner of screen). Then select appropriate discipline tab on top of screen.
--- NOTE | 2016-06-28 13:47 | PCM.DIMED ---
Discharge Instructions Date of Service Jun 28, 2016 Dates of Hospitalization Jun 22, 2016 at 02:27 Discharge Diagnosis Discharge Diagnosis Acute blood loss anemia due to upper GI bleed Chronic cane disease secondary to hypertensive nephropathy End-stage renal disease requiring dialysis Diabetes mellitus CHF History of CVA 4 Hypothyroidism Hyperlipidemia Hypertension Test Results DATE COLLECTED:06/25/2016 00:00 SPECIMEN: Colon, Biopsy CLINICAL HISTORY: A: TRANSVERSE COLON POLYP FINAL DIAGNOSIS: 1.TRANSVERSE COLON, POLYP, BIOPSY: INFLAMMATORY PSEUDOPOLYP. NEGATIVE FOR DYSPLASIA AND MALIGNANCY. Diet Low fat, Low Sodium, Heart Healthy, Diabetic, Renal Diet Activity Home Health Phyical Therapy, Other (home health visiting nursing and home health PT/occupational therapy as available) Call your provider Fever or Chills, Shortness of breath, Bleeding, Chest pain Patient Instructions Please follow-up with your PCP in the next 1-2 weeks and with the GI clinic in the next 2-3 weeks. He received 2 units of red blood cells for an upper GI bleed during her hospitalization. Since then your blood levels have stabilized and you did receive an endoscopy and colonoscopy with a polyp, your duodenum and also 3 polyps which were removed. Colonoscopy. Path report of a polyp from colonoscopy shows no evidence of cancer. Please follow up with the GI clinic regarding other polyps Please take the prescribed iron, take twice a day with meals, you still have mild anemia which is related to year kidney disease but also related to year iron stores in her body. Please take this for 30 days or as recommended by her psychiatric aide instructor and GI doctor. Follow-up plan Please see above Follow-up with PCP in: 1 week (at the [place] [facility]) Provider: José Morse MD Follow-up in: 2 weeks Juve Mao DO Jun 28, 2016 13:46
[2016-06-28] MEDS ORDERED: FERR-74 PO (13:49)
--- NOTE | 2016-06-28 13:52 | NUR ---
Social Work: Discharge Data: Pt is on day 6 of hospitalization. EMR reviewed, d/c orders are in. Pt continues to decline SNF. Pt will d/c home via POV either with or with [facility] caregiver today with [facility] HUNTLEY PT/OT/RN/CHARTER COORDINATOR. Kyleigh notified that pt will d/c today. No further d/c planning needs identified at this time. CHARTER COORDINATOR will continue to follow if needs arise. Assessment: Pt in wheelchair and assistance from at baseline. Has [facility]. Plan: Pt will d/c home via POV either with or with [facility] caregiver today with Kyleigh HUNTLEY PT/OT/RN/CHARTER COORDINATOR. No further d/c planning needs identified at this time. CHARTER COORDINATOR will continue to follow if needs arise. DAVID Inman
[2016-06-28] MEDS ORDERED: Potassium Chloride 20 mEq/15 mL 15mL Oral Soln PO ONE (14:00)
[2016-06-28] MEDS ORDERED: AMOX500C2 PO (14:02)
--- NOTE | 2016-06-28 14:06 | PCM.DC.MED ---
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 3-dimensional maximum intensity projection (MIP) coronal and sagittal reformats were then acquired through the thorax. For radiation dose reduction, the following was used: automated exposure control, adjustment of mA and/or kV according to patient size. COMPARISON: [facility], CT, CHEST ANGIO-PE, 03/21/2014, 14:37. FINDINGS: Image quality: Excellent. Pulmonary arteries: Pulmonary arteries are normal in size, and demonstrate no intraluminal filling defects to suggest central pulmonary embolism. Lungs and pleura: Lungs are clear. No pleural effusions or pneumothorax. Central and peripheral airways are patent. Mediastinum: Heart size is normal, without pericardial effusion. No mediastinal or hilar adenopathy. Thoracic aorta is normal in caliber and enhancement. Esophagus is normal in caliber. There is a small hiatal hernia. The distal esophagus is fluid-filled. Bones and chest wall: No suspicious bony lesions. Ribs and thoracic spine appear intact throughout. Thyroid gland is unremarkable. No axillary or supraclavicular adenopathy. Abdomen: Visualized upper abdominal solid organs appear normal in the early arterial phase of enhancement. IMPRESSION: 1. No acute pulmonary embolus. 2. Small hiatal hernia and fluid-filled esophagus. Note: The preliminary [facility] interpretation and the final report are concordan Chest X-ray IMPRESSION: 1. No evidence of pneumonia. 2. Findings suggestive of COPD redemonstrated. Dictated by: Marcelino Vance M.D. on 06/21/2016 at 8:40 Other Diagnostics EGD FINDINGS: 1. Bile stained mucosa was noted throughout the examined portions of the duodenum. 2. In the proximal portion of the second part of the duodenum there was an approximately 8-9 mm polyp. Appearance of the polyp appeared to be inflammatory. Biopsies were not obtained of the polyp. 3. Normal appearing pylorus, antrum and gastric body. Retroflexed views in the gastric body revealed a normal appearing cardia and fundus. 4. Normal appearing GE junction with a regular Z-line. 5. Normal appearing esophagus. IMPRESSION: Polyp in the second portion of the duodenum, otherwise normal exam. No evidence of old or fresh blood seen on exam. RECOMMENDATIONS: 1. Prep for colonoscopy. 2. Refer to a tertiary center for polypectomy of the polyp in the duodenum. Colonoscopy FINDINGS: 1. Bile-stained mucosa and bilious-appearing fluid was noted throughout the entire colon. No old or fresh blood was seen. 2. In the transverse colon, there were three polyps ranging in size from diminutive which was removed with cold biopsy forceps to two other polyp that measured approximately 3 mm and 4 mm that were removed with the cold snare. 3. Scattered diverticula were seen in the sigmoid colon. 4. Retroflexed views in the rectum were unremarkable. IMPRESSION: 1. Three transverse colon polyps. 2. Scattered sigmoid diverticula. Otherwise normal exam. No findings to explain the patient's melanoma or anemia. 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 Patient was brought to the emergency department here at [facility] yesterday due to cough and shortness of breath with vomiting of black tarry stools. The shortness of breath that started yesterday and he underwent evaluation for PE which was ruled out and the patient was sent home. Patient denies fever, abdominal or chest pain, diarrhea, but does endorse chills and lightheadedness. Patient has also been unable to eat or drink due to severe nausea. Patient had GI bleed in 2014, at which time his anticoagulation for his PE/DVT was discontinued. He was admitted to the hospital. S/P H in early 2015. At that time the patient had gastritis diagnosed by EGD. Patient is a poor historian and history is taken from the records from [facility], and from the ER records yesterday. At [facility] basics labs showed a hypokalemia of 3.3, hypochloremia of 91, increased anion gap 19, glucose 317, BUN/creatinine 58, creatinine of 6.79, EGF R8. Patient also had a mild elevation of his AST with a normal ALP and a normal alkaline phosphatase. Patient did have a white count of 14.5 hemoglobin of 9.9 which was down from 10.3 yesterday morning when he visited [facility]. Hematocrit is 29.3. 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 Patient has coffee- ground stool, hematemesis, that started at the same time the nausea and vomiting. #1 Acute blood loss possibly related to an upper GI bleed; present on admission ; ongoing, patient received 2 units of packed red blood cells during hemodialysis Patient presents with only a mild decrease in his hematocrit but complained of ongoing hematemesis and melena. His hemoglobin and hematocrit dropped to 7.0 and 21.9 on 06/25/2016. Patient had previous GI bleed while on anticoagulation at the end of 2014 in and to 2016 with EGD only showing gastritis. H&H - stabilized at the time of discharge GI consulted and patient had endoscopy with findings as follows: "Polyp in the second portion of the duodenum, otherwise normal exam. Colonoscopy today revealed 3 polyps which were removed and no evidence of active bleeding. No evidence of old or fresh blood seen on exam ". Patient will be discharged to continue on Protonix We will avoid Maalox as this patient also has chronic kidney disease on hemodialysis Patient on ondansetron for nausea #2 Chronic kidney disease secondary to hypertensive nephropathy with end-stage renal disease requiring dialysis; present on admission; ongoing Nephrology was consulted and patient was regularly dialyzed - with ultrafiltration as well. Patient hypokalemic, and this has been corrected on hemodialysis while hospitalized patient received 20 mEq times one orally prior to discharge #3 Uncontrolled diabetes mellitus; present on admission; ongoing Patient presented with a blood glucose over 300 Hgb A1c was 7.3 Will discharge patient on home regimen 20 units of Lantus and mealtime aspart #4 Acute leukocytosis; present admission; ongoing slightly improved. Patient reports chills but no fever, also a general sense of malaise, and lethargy; on return to the hospital the patient had an elevated white count of 14.5. At the time of discharge leukocytosis improved Patient had blood cultures drawn before leaving the ED yesterday morning with no growth We will hold off on antibiotics at this time as the leukocytosis may be due to acute dehydration from vomiting; currently no fever Patient did receive amoxicillin which appeared to be due to a positive sputum culture with group B strep, afebrile at this time with no leukocytosis, has received 3 doses but will hold and discontinue upon discharge given less clinical significance #5 Chronic hypothyroidism; present on admission; stable Continue home levothyroxine #6 Chronic hyperlipidemia; present on admission; stable Continue home atorvastatin #7 Hypertension, chronic; present admission; stable Continue on home carvedilol 12.5 mg #8 patient had a very brief episode of chest pain yesterday and EKG and troponins are unremarkable. Patient has had no further chest pain and feels much better after blood transfusion. Disposition: Patient will plan on follow-up with GI when appropriate for discharge. Discharge will be pending clinical progress and stability of H&H, along with physical therapy evaluation. Exam Vital Signs (Last) Date Time Temp Pulse Resp B/P Pulse Ox O2 Delivery O2 Flow Rate FiO2 06/28/16 10:53 37.3 67 20 114/73 95 Room Air 06/28/16 06:30 2.00 Exam General: Patient is in no apparent distress. HEENT: Head is atraumatic normocephalic with normal male pattern baldness. Eyes : Pupils are equally round and reactive to light and accommodation. Extraocular muscles are intact. Sclera are white anicteric. Subconjunctival mucosa is pink. Ears and nose are unremarkable. Oropharynx: There are no mucosal lesions, there is no thrush, there is no pharyngitis. Neck: Is supple, there are no nodes, or masses or tenderness. Chest: Is clear to auscultation and percussion. There are no rales, rhonchi, wheezes or rubs. Heart: Rate, rhythm is regular. There is no new murmur, rub or gallop. Abdomen: Good bowel sounds are present. Abdomen is obese, soft, nontender, no organomegaly or masses were appreciated. Extremities: Are symmetrical and well perfused. There is 2+ pitting edema of the lower extremities, which is symmetrical, there is no cellulitis, no rash. Neurologic: There are no focal neurological deficits. Cranial nerves II through XII are intact. There are no sensory or motor deficits. Psychiatric: Patients mood is calm and shows no sign of agitation. Test 06/22/16 09:41 06/23/16 07:20 06/25/16 05:40 06/26/16 05:28 Prothrombin Time 10.5sec (8.1-12.5) Prothromb Time International Ratio 0.98ratio Activated Partial Thromboplast Time 20.0sec (22.8-33.0) Hemoglobin A1c 7.3% (4.8-5.6) Iron Level 21ug/dL (35-150) Total Iron Binding Capacity 193ug/dL (250-450) Percent Iron Saturation 11%sat (15-50) Unsaturated Iron Binding 172.4ug/dL Ferritin 1235ng/mL (30-400) Phosphorus Level 5.3mg/dL (2.5-4.9) Magnesium Level 1.5mg/dL (1.6-2.6) Troponin T 0.011ug/L (0.0-0.011) Procalcitonin 0.95ng/mL (See Comment) Lactate Dehydrogenase 225U/L (100-190) Test 06/26/16 09:43 06/28/16 05:10 Haptoglobin 181mg/dL (34-200) White Blood Count 10.5th/mm3 (3.8-10.1) Red Blood Count 2.94mil/mm3 (4.40-5.80) Hemoglobin 9.4g/dL (13.8-17.2) Hematocrit 27.8% (41.0-50.0) Mean Corpuscular Volume 94.6fL (81-100) Mean Corpuscular Hemoglobin 32.0pg (27.0-35.0) Mean Corpuscular Hemoglobin Concent 33.8% (32.0-37.0) Red Cell Distribution Width 14.6% (12.3-15.4) Platelet Count 219bil/L (150-400) Neutrophils (%) (Auto) 74.0% (40-74) Lymphocytes (%) (Auto) 10.8% (14-46) Monocytes (%) (Auto) 11.3% (4-12) Eosinophils (%) (Auto) 2.9% (0-5) Basophils (%) (Auto) 0.7% (0-3) Sodium Level 138mEq/L (134-144) Potassium Level 3.4mEq/L (3.5-5.2) Chloride Level 95mEq/L (97-108) Carbon Dioxide Level 29mmol/L (18-29) Blood Urea Nitrogen 22mg/dL (8-27) Creatinine 3.95mg/dL (0.76-1.27) Estimat Glomerular Filtration Rate 16mL/min (>59) Glucose Level 154mg/dL (60-99) Calcium Level 7.8mg/dL (8.5-10.1) Total Bilirubin 0.7mg/dL (0.0-1.2) Aspartate Amino Transf (AST/SGOT) 36U/L (0-50) Alanine Aminotransferase (ALT/SGPT) 27U/L (0-44) Alkaline Phosphatase 111U/L (25-160) Total Protein 5.2g/dL (6.4-8.4) Albumin 2.8g/dL (3.4-5.0) Microbiology Results Name: HEATHER DE LA FUENTE Age/Sex: 65/M Attend Dr: Jl Gimenez Acct: [id number] Unit: [id number] Status: [facility] [place] [facility] [place] Disch: Specimen: [id number] Collected: 06/21/16 Status: RES Req#: [id number] Received: 06/21/16 Source: BLOOD Sp Desc : ELIZABETH Youngblood Dr: Mazin Loaiza DO Ordered: BC Comments: Collected by Nurse/Unit? Y/N Y Comment: ER BED 2 BC Procedure Result Verified Site Microbiology SHARATH CULTURE BLOOD Preliminary 06/22/16 NO GROWTH AFTER 24 HOURS Discharge Medications Discharge Medications Atorvastatin Calcium (Atorvastatin Calcium) 80 Mg Tablet 80 MG PO HS (Reported) Carvedilol (Carvedilol) 12.5 Mg Tablet 12.5 MG PO BID (Reported) tAKE ON FRIDAY, FRIDAY, FRIDAY AND FRIDAY ONLY HOLD ON FRIDAY AND FRIDAY AND FRIDAY Cholecalciferol (Vitamin D3) (Vitamin D3) 1,000 Unit Tab.chew 1,000 UNIT PO DAILY (Reported) Citalopram (Citalopram) 40 Mg Tablet 40 MG PO AM (Reported) Ferrous Sulfate (Feosol) 325 Mg Tablet 325 MG PO BID Prescribed by: BRAD SAEZ DO Furosemide (Furosemide) 20 Mg Tab 80 MG PO SuMoWeFr (Reported) Hold on dialysis days Insulin Aspart (NovoLOG U-100 Pen) 100 Unit/Ml Insuln.pen 5-8 UNIT SUBQ TID- INSULIN (Reported) Hold for blood glucose less than 150. Insulin Glargine (Lantus U100 Insulin Vial) 100 Unit/Ml Vial 20 UNIT SUBQ HS ( Reported) Levothyroxine (Levothyroxine) 200 Mcg Tablet 200 MCG PO AM (Reported) Melatonin (Melatonin) 1 Mg Tablet 1 MG PO HS (Reported) Pantoprazole DR (Protonix) 40 Mg Tablet 40 MG PO BID Prescribed by: LAURA GIMENEZ MD As needed Acetaminophen (Acetaminophen) 500 Mg Tablet 1,000 MG PO Q6H PRN PRN For Pain ( Reported) oxyCODONE (oxyCODONE) 5 Mg Capsule 5 MG PO Q6-8H PRN PRN For Pain (Reported) TAKE WITH BREAKFAST AND DINNER Followup Plan Follow-up plan Please see above Discharge Diet: Low fat, Low Sodium, Heart Healthy, Diabetic, Renal Diet Discharge Activity: Home Health Phyical Therapy, Other (home health visiting nursing and home health PT/occupational therapy as available) Patient Instructions Please follow-up with your PCP in the next 1-2 weeks and with the GI clinic in the next 2-3 weeks. He received 2 units of red blood cells for an upper GI bleed during her hospitalization. Since then your blood levels have stabilized and you did receive an endoscopy and colonoscopy with a polyp, your duodenum and also 3 polyps which were removed. Colonoscopy. Path report of a polyp from colonoscopy shows no evidence of cancer. Please follow up with the GI clinic regarding other polyps Please take the prescribed iron, take twice a day with meals, you still have mild anemia which is related to year kidney disease but also related to year iron stores in her body. Please take this for 30 days or as recommended by her motor vehicle representative and GI doctor. Follow-up with PCP in: 1 week (at the [place] [facility]) Provider: José Morse MD Follow-up in: 2 weeks Time spent 50 minutes spent with evaluation management including discharge of this patient , greater than 50% time spent [id number] copies to: José Morse MD, David DO Jun 28, 2016 14:06
--- NOTE | 2016-06-28 15:32 | NUR ---
Discharge Reviewed d/c instructions with pt and overnight caregiver in room including care notes and new prescriptions, pt signed and given originals, copies to chart. IV d/c intact, tele removed. VS stable at d/c. All belongings packed in room and taken with them. residential caregiver to give pt ride home.
== END 2016-06-28 15:31 | disposition home health service (06) | DRG 377 ==
LOC: MPC 02:27
PROVIDERS: ADMIT Family Medicine; ATTEND Family Medicine
PROC: 5A1D60Z (ICD-10-PCS; 2016-06-22)
PROC: 0DJ08ZZ Inspection of Upper Intestinal Tract, Via Natural or Artificial Opening Endoscopic (ICD-10-PCS; 2016-06-24)
PROC: 30233N1 Transfusion of Nonautologous Red Blood Cells into Peripheral Vein, Percutaneous Approach (ICD-10-PCS; 2016-06-25)
PROC: 0DBL8ZX Excision of Transverse Colon, Via Natural or Artificial Opening Endoscopic, Diagnostic (ICD-10-PCS; principal; 2016-06-25 13:30)
DX: K92.2 Gastrointestinal hemorrhage, unspecified (principal); N18.6 End stage renal disease; D62 Acute posthemorrhagic anemia; I50.32 Chronic diastolic (congestive) heart failure; I13.11 Hypertensive heart and chronic kidney disease without heart failure, with stage 5 chronic kidney disease, or end stage renal disease; G99.0 Autonomic neuropathy in diseases classified elsewhere; E86.0 Dehydration; E03.9 Hypothyroidism, unspecified; E78.5 Hyperlipidemia, unspecified; M10.9 Gout, unspecified; E11.21 Type 2 diabetes mellitus with diabetic nephropathy; E11.65 Type 2 diabetes mellitus with hyperglycemia; K31.7 Polyp of stomach and duodenum; D12.3 Benign neoplasm of transverse colon; K63.5 Polyp of colon; G47.30 Sleep apnea, unspecified; Z99.2 Dependence on renal dialysis; Z86.718 Personal history of other venous thrombosis and embolism; Z86.73 Personal history of transient ischemic attack (TIA), and cerebral infarction without residual deficits; Z79.4 Long term (current) use of insulin

== ENCOUNTER 2016-08-17 09:09 | Emergency (ER) | payer MEDICARE, OTHER, MEDICAID ==
[~2016-08-17 09:09] MED LIST changes: +CHOL10008 PO; -CHOL200047 PO; +FERR-74 PO; +MELA1TAB9 PO; -MOXI400T32 PO; -ONDA4TAB9 PO; -PANT40TA3 PO; -PROC-4 PO; -SEVE800T7 PO
[2016-08-17 09:10] VITALS: BP 125/84; PULSE 60; RESP 18; O2SAT 100
--- NOTE | 2016-08-17 09:14 | ED.REPORT ---
HPI-Abd Pain M 40 and Over Date of Service Aug 17, 2016 ED Provider: Dr. Rivera Pt is a 65 year old male with a hx of DM, CHF, HTN, and chrnoic renal failure on dialysis presenting to the ED via EMS complaining of nausea and increased diarrhea today. Associated symptoms include dizziness (when standing), lightheadedness, weakness. He denies black or tarry stool, urinary symptoms, focal weakness, fever, chills. He denies feeling sick yesterday, or any pain. His reports that the diarrhea has been intermittent for a while, and is black and very pungent. His next appointment for dialysis is supposed to be today at 1030. Nursing Notes Stated Complaint: DIARRHEA Chief Complaint: General Complaint Nursing Notes Reviewed: Yes Allergies: Coded Allergies: No Known Allergies (Verified Allergy, Unknown, 08/17/16) Scheduled Atorvastatin Calcium (Atorvastatin Calcium) 80 Mg Tablet 80 MG PO HS Carvedilol (Carvedilol) 12.5 Mg Tablet 12.5 MG PO BID tAKE ON FRIDAY, FRIDAY, FRIDAY AND FRIDAY ONLY HOLD ON FRIDAY AND FRIDAY AND FRIDAY Cholecalciferol (Vitamin D3) (Vitamin D3) 1,000 Unit Tab.chew 1,000 UNIT PO DAILY Citalopram (Citalopram) 40 Mg Tablet 40 MG PO AM Ferrous Sulfate (Feosol) 325 Mg Tablet 325 MG PO BID Furosemide (Furosemide) 20 Mg Tab 80 MG PO SuMoWeFr Hold on dialysis days Insulin Aspart (NovoLOG U-100 Pen) 100 Unit/Ml Insuln.pen 5-8 UNIT SUBQ TID- INSULIN Hold for blood glucose less than 150. Insulin Glargine (Lantus U100 Insulin Vial) 100 Unit/Ml Vial 20 UNIT SUBQ HS Levothyroxine (Levothyroxine) 200 Mcg Tablet 200 MCG PO AM Melatonin (Melatonin) 1 Mg Tablet 1 MG PO HS Pantoprazole DR (Protonix) 40 Mg Tablet 40 MG PO BID Scheduled PRN Acetaminophen (Acetaminophen) 500 Mg Tablet 1,000 MG PO Q6H PRN PRN For Pain oxyCODONE (oxyCODONE) 5 Mg Capsule 5 MG PO Q6-8H PRN PRN For Pain TAKE WITH BREAKFAST AND DINNER General Time Seen by MD: 09:15 Chief Complaint Diarrhea severe Hx Obtained From: Patient, Spouse Arrived By: Ambulance Sudden in Onset?: No Onset Occurred: Just prior to arrival Symptom Duration: Intermittent Progression since Onset: Intermittent Severity: Current: No pain currently Severity: Maximum: No pain Recent Healthcare: No recent doctor visit, No recent hospitalization Similar Sx Previous: Yes Past Medical History Past Medical History Notes: Admit for GI bleed July 2015 (sternal history of GI bleed in February 2015- from therapy stopped at that time) ED visit for headache 07/27/15 11 Head [address]s since 2013 Past Medical History Chronic renal failure, on dialysis (T/R/S). Minimal urine output. [facility] h/o DVT and PE no longer on chronic Coumadin therapy following GI Bleed Sleep apnea on BiPAP. Diastolic dysfunction congestive heart failure Diabetes mellitus Hypertension Hyperlipidemia Depression Gout CVA Restless legs Peripheral neuropathy Headaches Hypothyroid Past Surgical History Partial colectomy, colostomy and subsequent takedown. Dialysis access catheter Colonoscopy December 2014 with polypectomy EGD July 2015 reveals ulcers in the esophagus and proximal duodenum with no active bleeding Family History Reviewed, not relevant. Smoking History Never Smoker Social History Alcohol Use: Denies alcohol use Drug Use: Denies drug use Other Social History: Good social support, , Local resident Ambulatory Status Wheelchair Review of Systems Constitutional: Denies: Chills, Fever GI: Reports: Diarrhea, Nausea, Denies: Abdominal pain, Bloody/tarry stool Male: Denies Dysuria, Denies Urinary frequency Complete sys rev & neg: except as marked. Neurologic: Reports: Dizziness, Lightheaded, Weakness, Denies: Focal weakness Physical Exam Initial Vital Signs Vital Signs (First) Date Time Temp Pulse Resp B/P Pulse Ox O2 Delivery O2 Flow Rate FiO2 08/17/16 09:10 36.6 60 18 125/84 100 Room Air Initial VS: Reviewed, Vital signs normal Skin: Warm, Dry, No cyanosis Neurologic: Alert, Oriented, Nonfocal Psychiatric: Mood/affect normal, Behavior normal, Normal thought content General/Constitutional: Awake, Alert, No acute distress, Well appearing Respiratory / Chest: Breath sounds NL, Breath sounds = bilat, No respiratory distress, No rales, No rhonchi, No wheezing Cardiovascular: Heart rate NL, Regular rhythm, Heart sounds NL, Peripheral circulation NL Abdomen: Soft, Non-tender, BS normoactive Head / Eyes: Atraumatic, Normocephalic Lips dry. Rectum / Perineum: Atraumatic, No gross blood Guaiac trace positive Lower Extremity / Pelvis / MS: Neurologic intact, Vascular intact Trace edema. Interpretation & Diagnostics Lab Results Interpretation Result Diagram: 08/17/16 1005 08/17/16 1005 Test 08/17/16 10:05 White Blood Count 7.6th/mm3 (3.8-10.1) Red Blood Count 3.54mil/mm3 (4.40-5.80) Hemoglobin 11.5g/dL (13.8-17.2) Hematocrit 35.2% (41.0-50.0) Mean Corpuscular Volume 99.4fL (81-100) Mean Corpuscular Hemoglobin 32.5pg (27.0-35.0) Mean Corpuscular Hemoglobin Concent 32.7% (32.0-37.0) Red Cell Distribution Width 15.8% (12.3-15.4) Platelet Count 166bil/L (150-400) Neutrophils (%) (Auto) 68.6% (40-74) Lymphocytes (%) (Auto) 18.7% (14-46) Monocytes (%) (Auto) 9.8% (4-12) Eosinophils (%) (Auto) 1.1% (0-5) Basophils (%) (Auto) 0.5% (0-3) Sodium Level 135mEq/L (134-144) Potassium Level 3.9mEq/L (3.5-5.2) Chloride Level 93mEq/L (97-108) Carbon Dioxide Level 20mmol/L (18-29) Blood Urea Nitrogen 47mg/dL (8-27) Creatinine 4.88mg/dL (0.76-1.27) Estimat Glomerular Filtration Rate 13mL/min (>59) Glucose Level 238mg/dL (60-99) Calcium Level 9.2mg/dL (8.5-10.1) Magnesium Level 1.8mg/dL (1.6-2.6) Total Bilirubin 0.7mg/dL (0.0-1.2) Aspartate Amino Transf (AST/SGOT) 22U/L (0-50) Alanine Aminotransferase (ALT/SGPT) 16U/L (0-44) Alkaline Phosphatase 141U/L (25-160) Total Protein 6.6g/dL (6.4-8.4) Albumin 4.0g/dL (3.4-5.0) Re-Eval/Medical Decision Med Decision/Clinical Course The patient has chronic intermittent diarrhea. He did not have any episodes of diarrhea while in the emergency department and has a benign abdominal exam. His stated he is having black stool however on my exam it was brown but there were a few areas that were Hemoccult trace positive. The patient complained of some dizziness and had some mild dehydration, he was given a small bolus of normal saline was feeling improved. Differential diagnoses considered were GI bleed, gastroenteritis, bowel ischemia, diverticulitis. Time of Eval: 11:25 Patient Status: Condition improved Re-Evaluation/Progress Note: Pt has had no more episodes of diarrhea. Discussed plan for discharge. Pt understands and agrees with plan. Counseled Regarding: Diagnosis, Lab results, Need for follow-up, When/why to return to ED Discharge & Departure Primary Impression: Diarrhea Additional Impression: Dehydration Disposition: Home Vital Signs - All Vital Signs Date Time Temp Pulse Resp B/P Pulse Ox O2 Delivery O2 Flow Rate FiO2 08/17/16 11:36 36.3 67 18 128/71 99 Room Air 08/17/16 11:23 36.3 67 18 128/71 99 Room Air 08/17/16 09:10 36.6 60 18 125/84 100 Room Air )( All Prior VS Reviewed: Yes Condition: Improved Patient Instructions: Acute Diarrhea (ED) Additional Instructions: Make sure to drink plenty of fluids and get lots of rest. No dangerous cause for your diarrhea was identified. Consider taking Citrazole or Metamucil 3 times a day for the diarrhea. Follow up with your primary care physician and have them send you to a marketing automation analyst if symptoms persist. Return to the ER with any new or worsening symptoms such as vomiting, or being unable to keep fluids down. Referrals: LAMAR GALLAGHERAR STEVENSON (PCP) Priscilla Attestation Portions of this note were transcribed by Sarahy Hall. I, Dr. Rivera personally performed the history, physical exam and medical decision-making; I reviewed and confirmed the accuracy of the information in the transcribed note. Signed by : Priscilla Carvajal, 08/17/2016 and 1125. copies to: LAMAR GALLAGHERAR Lyric Talley MD Aug 17, 2016 09:14 SARAHY HALL Aug 17, 2016 09:21
[2016-08-17] MEDS ORDERED: 0.9% Sodium Chloride 250 ML IV ONE (09:25)
[2016-08-17 10:18] LABS: BASOPHILS % (AUTO) 0.5 % (0-3); EOSINOPHILS % (AUTO) 1.1 % (0-5); MONOCYTES % (AUTO) 9.8 % (4-12); Mean Corpuscular Hemoglobin 32.5 pg (27.0-35.0); Mean Corpuscular Volume 99.4 fL (81-100); NEUTROPHILS % (AUTO) 68.6 % (40-74); Platelet Count 166 bil/L (150-400)
[2016-08-17 10:54] LABS: Magnesium 1.8 mg/dL (1.6-2.6)
[2016-08-17 11:23] VITALS: BP 128/71; PULSE 67; RESP 18; O2SAT 99
[2016-08-17 11:36] VITALS: BP 128/71; PULSE 67; RESP 18; O2SAT 99
== END 2016-08-17 11:35 | disposition home or self-care (01) ==
LOC: SED 09:09 → EDBD 09:09 → SED 11:35
DX: E86.0 Dehydration (principal); I13.2 Hypertensive heart and chronic kidney disease with heart failure and with stage 5 chronic kidney disease, or end stage renal disease; N18.6 End stage renal disease; E11.22 Type 2 diabetes mellitus with diabetic chronic kidney disease; I50.9 Heart failure, unspecified; E03.9 Hypothyroidism, unspecified; Z86.73 Personal history of transient ischemic attack (TIA), and cerebral infarction without residual deficits; Z79.899 Other long term (current) drug therapy; Z79.4 Long term (current) use of insulin; Z99.2 Dependence on renal dialysis
CPT/HCPCS: 36415; 80053; 83735; 85025; 96360; 99284; J7050

== ENCOUNTER 2016-12-28 13:20 | Emergency (ER) | payer MEDICARE, OTHER, MEDICAID ==
[~2016-12-28] VITALS: Ht 172.7 cm; Wt 120.0 kg
[2016-12-28 13:29] VITALS: BP 129/6; PULSE 81; RESP 18; O2SAT 100
--- NOTE | 2016-12-28 13:30 | ED.REPORT ---
HPI-General Illness Date of Service Dec 28, 2016 ED Provider: Dr. Jeff Acosta MD A 65 year old male with a history of diabetes mellitus, CHF, hypertension, and chronic renal failure on dialysis presents to the ED via EMS with worsening confusion that began just prior to arrival. EMS brought the patient to the ED following an episode of decreased consciousness that occurred while the patient was in a dialysis appointment. He became increasingly confused and generally weak and reportedly believed that he was in "[place]". The patient's reports that the patient is typically disoriented to time and place. Patient denies any pain, fever or chills. Nursing Notes Stated Complaint: ALTERED LEVEL OF CONSCIOUSNESS Chief Complaint: General Complaint Nursing Notes Reviewed: Yes Allergies: Coded Allergies: No Known Allergies (Verified Allergy, Unknown, 08/17/16) Scheduled Atorvastatin Calcium (Atorvastatin Calcium) 80 Mg Tablet 80 MG PO HS Carvedilol (Carvedilol) 12.5 Mg Tablet 12.5 MG PO BID tAKE ON FRIDAY, FRIDAY, FRIDAY AND FRIDAY ONLY HOLD ON FRIDAY AND FRIDAY AND FRIDAY Cholecalciferol (Vitamin D3) (Vitamin D3) 1,000 Unit Tab.chew 1,000 UNIT PO DAILY Citalopram (Citalopram) 40 Mg Tablet 40 MG PO AM Ferrous Sulfate (Feosol) 325 Mg Tablet 325 MG PO BID Furosemide (Furosemide) 20 Mg Tab 80 MG PO SuMoWeFr Hold on dialysis days Insulin Aspart (NovoLOG U-100 Pen) 100 Unit/Ml Insuln.pen 5-8 UNIT SUBQ TID- INSULIN Hold for blood glucose less than 150. Insulin Glargine (Lantus U100 Insulin Vial) 100 Unit/Ml Vial 20 UNIT SUBQ HS Levothyroxine (Levothyroxine) 200 Mcg Tablet 200 MCG PO AM Melatonin (Melatonin) 1 Mg Tablet 1 MG PO HS Pantoprazole DR (Protonix) 40 Mg Tablet 40 MG PO BID Scheduled PRN Acetaminophen (Acetaminophen) 500 Mg Tablet 1,000 MG PO Q6H PRN PRN For Pain oxyCODONE (oxyCODONE) 5 Mg Capsule 5 MG PO Q6-8H PRN PRN For Pain TAKE WITH BREAKFAST AND DINNER General Time Seen by MD: 13:29 Chief Complaint Other (Confusion) Hx Obtained From: Patient Arrived By: Ambulance Sudden in Onset?: No Onset Occurred: Just prior to arrival Symptom Duration: Since onset Associated with: Denies: Fever Pertinent Negative: Pt denies other symptoms Recent Healthcare: No recent doctor visit, No recent hospitalization Past Medical History Past Medical History Notes: Admit for GI bleed July 2015 (sternal history of GI bleed in February 2015- from therapy stopped at that time) ED visit for headache 07/27/15 [address]s since 2013 Past Medical History Chronic renal failure, on dialysis (T/R/S). Minimal urine output. [facility] h/o DVT and PE no longer on chronic Coumadin therapy following GI Bleed Sleep apnea on BiPAP. Diastolic dysfunction congestive heart failure Diabetes mellitus Hypertension Hyperlipidemia Depression Gout CVA Restless legs Peripheral neuropathy Headaches Hypothyroid Past Surgical History Partial colectomy, colostomy and subsequent takedown. Dialysis access catheter Colonoscopy December 2014 with polypectomy EGD July 2015 reveals ulcers in the esophagus and proximal duodenum with no active bleeding Family History Reviewed, not relevant. Smoking History Never Smoker Social History Alcohol Use: Denies alcohol use Drug Use: Denies drug use Other Social History: Good social support, , Local resident Ambulatory Status Wheelchair Review of Systems Denies any pain Full Review of Systems Constitutional: Denies: Chills, Fever Neurologic: Reports: Confusion, Weakness Complete sys rev & neg: except as marked. Physical Exam Vital Signs Vital Signs Date Time Temp Pulse Resp B/P Pulse Ox O2 Delivery O2 Flow Rate FiO2 12/28/16 15:29 112 17 121/72 99 Room Air 12/28/16 14:48 134 22 138/76 95 Room Air 12/28/16 13:29 36.8 81 18 129/6 100 Room Air Initial VS: Reviewed Neck: Supple, Non-tender, Full range of motion Extremities: Vascular intact, Neuro intact, No swelling, No tenderness Skin: Warm, Dry, No cyanosis Psychiatric: Mood/affect normal, Behavior normal, Normal thought content General/Constitutional: Awake, Alert, No acute distress Head / Eyes: Atraumatic, Normocephalic, PERRL, EOMI ENT: Atraumatic, Airway patent, Mucous membranes moist Respiratory / Chest: Atraumatic, No respiratory distress Wheezing / Retractions: Positive: Wheeze insp/exp diffuse (Course breath sounds ) Cardiovascular: Heart rate NL, Regular rhythm, Heart sounds NL, No gallop, No murmurs, No rubs Abdomen: Atraumatic, Soft, Non-tender, BS normoactive, No distention Neurologic: CN II - XII intact Mental Status: Positive: Confused, Disoriented to place, Disoriented to time 5/5 strength in all 4 extremities Interpretation & Diagnostics Lab Results Interpretation Result Diagram: 12/28/16 1345 12/28/16 1345 Test 12/28/16 13:45 12/28/16 14:00 White Blood Count 8.4th/mm3 (3.8-10.1) Red Blood Count 3.31mil/mm3 (4.40-5.80) Hemoglobin 10.9g/dL (13.8-17.2) Hematocrit 32.4% (41.0-50.0) Mean Corpuscular Volume 97.9fL (81-100) Mean Corpuscular Hemoglobin 32.9pg (27.0-35.0) Mean Corpuscular Hemoglobin Concent 33.6% (32.0-37.0) Red Cell Distribution Width 14.2% (12.3-15.4) Platelet Count 227bil/L (150-400) Neutrophils (%) (Auto) 64.1% (40-74) Lymphocytes (%) (Auto) 20.9% (14-46) Monocytes (%) (Auto) 8.1% (4-12) Eosinophils (%) (Auto) 1.8% (0-5) Basophils (%) (Auto) 0.6% (0-3) Sodium Level 134mEq/L (134-144) Potassium Level 3.5mEq/L (3.5-5.2) Chloride Level 88mEq/L (97-108) Carbon Dioxide Level 26mmol/L (18-29) Blood Urea Nitrogen 28mg/dL (8-27) Creatinine 3.78mg/dL (0.76-1.27) Estimat Glomerular Filtration Rate 17mL/min (>59) Glucose Level 275mg/dL (60-99) Calcium Level 8.7mg/dL (8.5-10.1) Total Bilirubin 0.5mg/dL (0.0-1.2) Aspartate Amino Transf (AST/SGOT) 20U/L (0-50) Alanine Aminotransferase (ALT/SGPT) 15U/L (0-44) Alkaline Phosphatase 99U/L (25-160) Total Protein 7.1g/dL (6.4-8.4) Albumin 3.8g/dL (3.4-5.0) Hold [place] Top Tube Received (Received) Urine Color Yellow (YELLOW) Urine Appearance Clear (CLEAR,HAZY) Urine pH 7.5 (5.0-8.0) Urine Specific Stephan 1.010 (1.003-1.035) Urine Protein 100mg/dL (NEG,TRACE) Urine Glucose (UA) 1000mg/dL (NEGATIVE) Urine Ketones Negativemg/dL (NEGATIVE) Urine Occult Blood Negative (NEGATIVE) Urine Nitrite Negative (NEGATIVE) Urine Bilirubin Negative (NEGATIVE) Urine Urobilinogen Normalmg/dL (NORMAL) Urine Leukocyte Esterase Negative (NEGATIVE) Urine RBC 0-2/hpf (0-2) Urine WBC 0-5/hpf (0-5) Urine Epithelial Cells Few/hpf (NONE-MOD) Urine Crystals None seen (NONE SEEN) Urine Bacteria Few/hpf (NONE-FEW) Urine Hyaline Casts None/lpf (NONE) Urine Granular Casts None seen (NONE SEEN) Urine Waxy Casts None seen (NONE SEEN) Urine Red Blood Cell Casts None seen (NONE SEEN) Urine White Blood Cell Casts None seen (NONE SEEN) Urine Mucus None seen (None Seen) Urine Trichomonas None seen (NONE SEEN) Urine Yeast None (NONE SEEN) Urinalysis Comment None Urine Culture Reflexed Not indicated ECG Interpretation ECG Interpretation: A-fib Rate [address] segment changes Time: 15:11 Interpreted by: ED physician X-Ray Chest Interpretation Chest Xray Interpretation: IMPRESSION: No acute cardiopulmonary disease. Dictated by: Junie Hernandez M.D. on 12/28/2016 at 14:08 Interpretation / Wet Read by: Interpret - Radiologist CT Head Interpretation IMPRESSION: 1. No acute intracranial abnormality. 2. Large old left MCA infarct. 3. Symmetrically dilated lateral ventricles, most likely secondary to central atrophy. A differential diagnosis is normal pressure hydrocephalus. Recommend clinical correlation. 4. Opacification of right ethmoid sinus. Dictated by: Junie Hernandez M.D. on 12/28/2016 at 15:05 Study: Head CT no contrast Interpretation / Wet Read by: Interpret - Radiologist Re-Eval/Medical Decision Med Decision/Clinical Course IV Metoprolol Chest X-ray IMPRESSION: No acute cardiopulmonary disease. Brain CT IMPRESSION: 1. No acute intracranial abnormality. 2. Large old left MCA infarct. 3. Symmetrically dilated lateral ventricles, most likely secondary to central atrophy. A differential diagnosis is normal pressure hydrocephalus. Recommend clinical correlation. 4. Opacification of right ethmoid sinus. EKG A-fib Rate [address] segment changes Urine Glucose No signs of UTI BUN 28 Creat 3.78 No leukocytosis Stable Hct 32.4 No significant electrolyte abnormalities Glucose 275 Time of Eval: 14:38 Re-Evaluation/Progress Note: is informed of the patient's results. All questions are addressed at this time. Time of Eval: 14:47 Re-Evaluation/Progress Note: Patient is tachycardic upon re-examination. He agrees with the plan to cath. Time of Eval: 15:32 Re-Evaluation/Progress Note: Patient is rechecked. He understands and agrees with the treatment plan. Counseled Regarding: Diagnosis, Lab results, Need for follow-up, When/why to return to ED Discharge & Departure Primary Impression: Altered mental status Altered mental status type: unspecified Qualified Code: R41.82 - Altered mental status, unspecified Additional Impressions: Confusion Transient alteration of awareness Disposition: Home Discharge Condition All VS Reviewed: Yes Condition: Improved Patient Instructions: Altered Mental Status (ED) Additional Instructions: Thank you for seeking care at the emergency room. Our primary goal today in the ED was to evaluate you for any life-threatening conditions. Your evaluation was reassuring. Make sure that you are taking all of your medications including your heart medications (atenolol). You should follow-up with your primary doctor in the next week. You should return to the ED immediately if you develop confusion/weakness, fevers, vomiting, cough, shortness of breath, chest pain, lightheadedness, weakness or any other concerning signs or symptoms. Thank you for letting us partake in your care today. [facility] Attestation Portions of this note were transcribed by Herman Morgan. I, Dr. Acosta personally performed the history, physical exam and medical decision-making; I reviewed and confirmed the accuracy of the information in the transcribed note. Signed by: Priscilla Fuentes, 12/28/16 0674. copies to: [facility] Jeff Acosta MD Dec 28, 2016 13:30 HERMAN MORGAN Dec 28, 2016 13:48
--- NOTE | 2016-12-28 14:11 | DRSVH ---
PROCEDURE: X-RAY CHEST ONE VIEW, PORTABLE ([id number]) INDICATIONS: ams TECHNIQUE: One view of the chest was acquired. COMPARISON: [facility], CR, XR CHEST 1VW (PORTABLE), 06/21/2016, 2:11. FINDINGS: Surgical changes and devices: None. Lungs and pleura: No pleural effusions or pneumothorax. Lungs are clear. Mediastinum: Mediastinal contours appear normal. Heart size is normal. Bones and chest wall: No suspicious bony lesions. Overlying soft tissues appear unremarkable. IMPRESSION: No acute cardiopulmonary disease. Dictated by: Junie Hernandez M.D. on 12/28/2016 at 14:08 Approved by: Junie Hernandez M.D. on 12/28/2016 at 14:08
[2016-12-28 14:28] LABS: BASOPHILS % (AUTO) 0.6 % (0-3); EOSINOPHILS % (AUTO) 1.8 % (0-5); MONOCYTES % (AUTO) 8.1 % (4-12); Mean Corpuscular Hemoglobin 32.9 pg (27.0-35.0); Mean Corpuscular Volume 97.9 fL (81-100); NEUTROPHILS % (AUTO) 64.1 % (40-74); Platelet Count 227 bil/L (150-400)
[2016-12-28 14:48] VITALS: BP 138/76; PULSE 134; RESP 22; O2SAT 95
[2016-12-28] MEDS ORDERED: MeTOProlol 1 mg/mL 5 mL Inj IVPUSH SCH (14:50)
--- NOTE | 2016-12-28 15:16 | DRSVH ---
PROCEDURE: CT BRAIN WITHOUT CONTRAST ([id number]) INDICATIONS: ams TECHNIQUE: Noncontrast 4.5 mm thick angled axial sections acquired from the foramen magnum to the vertex, with c oronal reformats. COMPARISON: [facility], CT, CT BRAIN WO CON, 11/25/2015, 17:57. FINDINGS: Image quality: Motion artifacts are present. CSF spaces: Basal cisterns are patent. No extra-axial fluid collections. Ventricles are dilated, b ut symmetrical in shape. Brain: There is a large old left MCA infarct. There is cerebral volume loss and periventricular whit e matter chronic small vessel ischemic change. No midline shift. No intracranial masses or hemorrhag e. Skull and face: Calvarium and visualized facial bones are intact, without suspicious lesions. Sinuses: The right ethmoid sinus is opacified. The mastoids are clear. IMPRESSION: 1. No acute intracranial abnormality. 2. Large old left MCA infarct. 3. Symmetrically dilated lateral ventricles, most likely secondary to central atrophy. A differential diagnosis is normal pressure hydrocephalus. Recommend clinical correlation. 4. Opacification of right ethmoid sinus. Dictated by: Junie Hernandez M.D. on 12/28/2016 at 15:05 Approved by: Junie Hernandez M.D. on 12/28/2016 at 15:14
[2016-12-28 15:18] LABS: APPEARANCE,URINE CLEAR (CLEAR,HAZY); COLOR,URINE YELLOW (YELLOW); OCCULT BLOOD,URINE NEGATIVE (NEGATIVE); PH,URINE 7.5 (5.0-8.0); UROBILINOGEN,URINE NORMAL (NORMAL)
[2016-12-28 15:29] VITALS: BP 121/72; PULSE 112; RESP 17; O2SAT 99
== END 2016-12-28 15:58 | disposition home or self-care (01) ==
LOC: EDBD 13:20 → EDUNIT# 13:20 → SED 13:20
DX: R41.0 Disorientation, unspecified (principal); R41.82 Altered mental status, unspecified; R40.4 Transient alteration of awareness; R53.1 Weakness; I13.0 Hypertensive heart and chronic kidney disease with heart failure and stage 1 through stage 4 chronic kidney disease, or unspecified chronic kidney disease; E11.59 Type 2 diabetes mellitus with other circulatory complications; E11.22 Type 2 diabetes mellitus with diabetic chronic kidney disease; I50.9 Heart failure, unspecified; N18.9 Chronic kidney disease, unspecified; E11.40 Type 2 diabetes mellitus with diabetic neuropathy, unspecified; F32.9 Major depressive disorder, single episode, unspecified; E78.5 Hyperlipidemia, unspecified; E03.9 Hypothyroidism, unspecified; G47.30 Sleep apnea, unspecified; Z86.73 Personal history of transient ischemic attack (TIA), and cerebral infarction without residual deficits; Z99.2 Dependence on renal dialysis; Z98.890 Other specified postprocedural states; Z79.4 Long term (current) use of insulin; Z79.01 Long term (current) use of anticoagulants